=== PATIENT | male | born 1950 | race Caucasian/White ===

== ENCOUNTER 2022-08-20 17:31 | Inpatient (IN) ==
--- NOTE | 2022-08-20 18:17 | Emergency Department Note ---
Impression & Plan Dementia ADMIT ED Provider Note HPI: The patient is a 71-year-old gentleman who presents the emergency department from his nursing facility for evaluation. Patient is currently on hospice care. Patient has history of dementia, stroke earlier this year. On arrival here to the ED the patient is nonresponsive to verbal stimuli, this is reportedly is recent baseline. He is otherwise hemodynamically stable on arrival. ROS: - Per HPI *Outpatient medications and allergy history reviewed. *Pertinent external medical records reviewed. PE: General: Nonresponsive to verbal stimuli HEENT: Normocephalic, trachea midline Eyes: no scleral erythema Pulmonary: Clear to auscultation bilaterally, no wheezing Cardio: Regular rate and rhythm GI: Abdomen is soft to palpation : No suprapubic tenderness MSK: No evidence of trauma or malformation of the extremities, no edema Skin: No evidence of rash Neuro: Nonresponsive to verbal stimuli Psychiatric: N/A playground monitor: (As interpreted by myself): - An order was placed for continuous cardiac monitoring - Patient was noted to be in sinus rhythm with a rate of 90 Interventions provided in ED: -IV fluid bolus Differential Diagnosis: Acute on chronic dementia with debility, sepsis, intracranial bleeding/stroke, amongst other potential pathologies. Medical Decision Making: Patient presented to the emergency department for evaluation after daughter expressed displeasure with the way he was being treated at his nursing facility. He reportedly was just started on hospice care over the weekend. On arrival here to the ED the patient is nonverbal which is per his recent baseline, he is hemodynamically stable, he is not alert to verbal stimuli. I discussed the patient's presentation with his daughter, Odette, who is the POA that signed his POLST form. She states that she would like him to be DNR/DNI but does not want him to be comfort measures only and does not want him to be on hospice care. She states she signed these forms because she thought he would get some additional services at the nursing facility. She states that she is unhappy with the way that the patient was treated at the nursing facility and felt like he was not being fed or hydrated appropriately and not having his hygiene taking care of well enough. IV was established and lab work obtained, patient was given IV fluid bolus, CT imaging of the head shows evidence of ventriculomegaly without any other acute process, no evidence of intracranial hemorrhage, this is consistent with patient's previous CT scans of the head through the [facility] system that were available for review after my consult with case management. Unclear whether this could be related to underlying process from previous stroke. Patient also has dementia with rapid decline recently. Lab work does show leukocytosis, straight catheterization did not produce urine, patient was given IV fluids. I discussed the above findings with the patient's daughter on the phone, she is requesting medical admission at this time for further evaluation and possibly placement at a new facility. Case was discussed with the on-call hospitalist, Dr. Sharma, patient was placed for admission in stable condition. Consultants: Hospitalist, Dr. Sharma Disposition discussion held by myself with: Patient's daughter, Odette Christie, on the phone Diagnosis: 1. Acute on chronic dementia with debility 2. DNR/DNI CODE STATUS 3. Leukocytosis, acute Disposition: Admission Justyn Heredia DO Emergency Medicine Past Med/Surg History Social History (System 09/28/19 @ 14:53 by Samina Quinones) Smoking Status: Current every day smoker Tobacco Type: Cigarettes Feels Safe at Home: Yes Allergies Allergies Allergy/AdvReac Type Severity Reaction Status Date / Time No Known Allergies Allergy Verified 08/20/22 19:27 Home Meds Home Medications Medication Instructions Recorded Confirmed acetaminophen 325 mg tablet 650 mg PO Q6H PRN TEMP >101F/PAIN 08/20/22 08/20/22 (Tylenol) dextrose 5 % in water (D5W) 1,000 ml IV Q8H 08/20/22 08/20/22 nitroglycerin 0.4 mg sublingual 0.4 mg sublingual .Q5MIN PRN Chest 08/20/22 08/20/22 tablet (Nitrostat) Pain polyethylene glycol 3350 17 17 g PO Q24H PRN Constipation 08/20/22 08/20/22 gram/dose oral powder (Miralax) Results & Data (ED) Vital Signs Vital Signs - 24 hr 08/20/22 17:23 08/20/22 17:49 08/20/22 19:16 Temperature 36.1 C L Temperature Source Oral Pulse Rate [Left Radial] 97 H Respiratory Rate 12 Respiratory Effort / Characteristics Non-Labored Respiratory Depth Normal Blood Pressure [Right Arm] 140/95 Blood Pressure Mean [Right Arm] 110 Blood Pressure Position [Right Arm] Right Lateral Pulse Oximetry 93 95 95 Oxygen Delivery Method Room Air Room Air Sepsis New/Unexplained Change in Mental Status No Sepsis Action Taken by Nursing No Action Required Laboratory Data 08/20/22 Unknown 08/20/22 Unknown Lab Results 08/20/22 08/20/22 08/20/22 Range/Units 20:35 Unknown Unknown WBC 15.39 H (4.8-10.8) K/ul RBC 4.09 L (4.70-6.10) M/uL Hgb 12.0 L (14.0-18.0) g/dl Hct 37.8 L (42.0-52.0) % MCV 92.4 (80.0-100.0) fL MCH 29.3 (25.0-34.0) pg MCHC 31.7 L (32.0-36.0) g/dL RDW Std Deviation 50.2 H (36.4-46.3) fL RDW Coeff of Neri 15.0 H (11.5-14.5) % Plt Count 306 (130-400) K/uL MPV 10.7 (9.4-12.4) fL Immature Gran % (Auto) 2.6 % Neut % (Auto) 74.1 % Lymph % (Auto) 15.3 % Sac % (Auto) 7.4 % Eos % (Auto) 0.3 % Baso % (Auto) 0.3 % Neut # (Auto) 11.40 H (1.40-6.50) K/uL Lymph # (Auto) 2.35 (1.2-3.4) K/uL Sac # (Auto) 1.14 H (0.11-0.59) K/uL Eos # (Auto) 0.05 (0-0.50) K/uL Baso # (Auto) 0.05 (0-0.2) K/uL Immature Gran # (Auto) 0.40 H (0.01-0.20) K/uL Sodium 146 H TNP (136-145) mmol/L Potassium 4.1 TNP (3.5-5.1) mmol/L Chloride 114 H (98-107) mmol/L Carbon Dioxide 25 (21-32) mmol/L Anion Gap TNP BUN 43 H (6-23) mg/dl Creatinine 1.08 (0.6-1.4) mg/dl Est Cr Clr Drug Dosing 62.0 ml/min Est GFR ( Amer) 78.5 ml/min Est GFR (Non-Af Amer) 67.7 ml/min BUN/Creatinine Ratio 39.8 H (10-20) Glucose 133 H (70-99(Fasting)) mg/dl Calcium 9.1 (8.6-10.3) mg/dl Magnesium 2.1 (1.7-2.4) mg/dl Total Bilirubin 0.7 (0.2-1.0) mg/dl AST 51 H TNP (13-39) U/L ALT 47 (7-52) U/L Alkaline Phosphatase 93 (34-104) U/L Total Protein 6.0 (6.0-8.3) gm/dl Albumin 2.5 L (3.4-5.0) gm/dl Globulin 3.5 (2.5-4.0) gm/dl Albumin/Globulin Ratio 0.7 L (0.9-2) Lipase 16 (11-82) U/L Administered Medications Discontinued Medications Sodium Chloride (Nss 1000ml) 1,000 mls @ 999 mls/hr IV .Q1H1M ONE Stop: 08/20/22 19:32 Last Admin: 08/20/22 19:13 Dose: 999 mls/hr Documented By: BETTY Imaging Data Radiologist's Impression: Head CT 08/20/22 18:46 Exam(s): CT HEAD Without Contrast EXAM: CT Head Without Intravenous Contrast CLINICAL HISTORY: Reason for exam: head injury/fall recently. TECHNIQUE: Axial computed tomography images of the head/brain without intravenous contrast. CTDI is 37.51 mGy and DLP is 624.41 mGy-cm. Automated exposure control was utilized for the study. A dose lowering technique was utilized adhering to the principles of ALARA. COMPARISON: No relevant prior studies available. FINDINGS: Brain: No hemorrhage. No apparent acute cortical infarct. No intra- axial mass lesion or midline shift. Involutional changes with small vessel disease. Cavum septum pellucidum and vergae. Right frontal encephalomalacia. Dystrophic calcification or calcified meningioma in the right frontal region, a little clinical significance. Ventricles: Moderate ventriculomegaly, could be from central atrophy and/or NPH in the appropriate clinical setting. Bones/joints: No acute calvarial fracture. Nasal fracture of uncertain chronicity. Soft tissues: Scalp lipomas. Sinuses: No acute sinusitis. Mastoid air cells: No mastoid effusion. Orbits: Unremarkable as visualized. IMPRESSION: 1. No acute intracranial hemorrhage. 2. Moderate ventriculomegaly, could be from central atrophy and/or NPH in the appropriate clinical setting. Electronically signed by: Jeremie Marshall M.D. 08/20/22 19:40 PM Discharge Plan Visit Data Chief Complaint: Illness ED Provider: Justyn Heredia Discharge Problem: Dementia Forms Stand Alone Forms: [facility] Prescriptions Prescriptions: No Action acetaminophen [Tylenol] 325 mg Tablet 650 mg PO Q6H MDD 3 GRAMS APAP/24 HOURS PRN (Reason: TEMP >101F/PAIN) nitroglycerin [Nitrostat] 0.4 mg Tablet, Sublingual 0.4 mg sublingual .Q5MIN MDD PAIN PRN (Reason: Chest Pain) polyethylene glycol 3350 [Miralax] 17 gram/dose Powder 17 g PO Q24H PRN (Reason: Constipation) dextrose 5 % in water (D5W) Parenteral Solution 1,000 ml IV Q8H Rx Instructions: DOSE 100 ML/HR IV EVERY SHIFT FOR HYPERNATREMIA. Referrals Referrals: Diego Rosales MD [Primary Care Provider] -
[2022-08-20] MEDS ORDERED: SODIUM CHLORIDE 0.9% 1000ML 1,000 ML IV ONE (18:32)
[2022-08-20 19:40] LABS: Basophils # (auto) 0.05 K/uL (0-0.2); Basophils % (auto) 0.3 %; Eosinophils # (auto) 0.05 K/uL (0-0.50); Eosinophils % (auto) 0.3 %; Hematocrit (blood only) 37.8 % (42.0-52.0); Immature Granulocytes % (auto) 2.6 %; Lymphocytes # (auto) 2.35 K/uL (1.2-3.4); Lymphocytes % (auto) 15.3 %; Mean Corpuscular Hemoglobin 29.3 pg (25.0-34.0); Mean Corpuscular Hgb Conc 31.7 g/dL (32.0-36.0); Mean Corpuscular Volume 92.4 fL (80.0-100.0); Mean Platelet Volume 10.7 fL (9.4-12.4); Monocytes # (auto) 1.14 K/uL (0.11-0.59); Monocytes % (auto) 7.4 %; Neutrophils % (auto) 74.1 %; Platelet Count 306 K/uL (130-400); RDW Standard Deviation 50.2 fL (36.4-46.3); Red Blood Count 4.09 M/uL (4.70-6.10); White Blood Count 15.39 K/ul (4.8-10.8)
--- NOTE | 2022-08-20 19:41 | CT Scan Report ---
Exam(s): CT HEAD Without Contrast EXAM: CT Head Without Intravenous Contrast CLINICAL HISTORY: Reason for exam: head injury/fall recently. TECHNIQUE: Axial computed tomography images of the head/brain without intravenous contrast. CTDI is 37.51 mGy and DLP is 624.41 mGy-cm. Automated exposure control was utilized for the study. A dose lowering technique was utilized adhering to the principles of ALARA. COMPARISON: No relevant prior studies available. FINDINGS: Brain: No hemorrhage. No apparent acute cortical infarct. No intra- axial mass lesion or midline shift. Involutional changes with small vessel disease. Cavum septum pellucidum and vergae. Right frontal encephalomalacia. Dystrophic calcification or calcified meningioma in the right frontal region, a little clinical significance. Ventricles: Moderate ventriculomegaly, could be from central atrophy and/or NPH in the appropriate clinical setting. Bones/joints: No acute calvarial fracture. Nasal fracture of uncertain chronicity. Soft tissues: Scalp lipomas. Sinuses: No acute sinusitis. Mastoid air cells: No mastoid effusion. Orbits: Unremarkable as visualized. IMPRESSION: 1. No acute intracranial hemorrhage. 2. Moderate ventriculomegaly, could be from central atrophy and/or NPH in the appropriate clinical setting. Electronically signed by: Jeremie Marshall M.D. 08/20/22 19:40 PM
[2022-08-20 20:02] LABS: Alanine Aminotransferase 47 U/L (7-52); Albumin Globulin Ratio 0.7 (0.9-2); Albumin Level 2.5 gm/dl (3.4-5.0); Alkaline Phosphatase 93 U/L (34-104); BUN Creatinine Ratio 39.8 (10-20); Bilirubin,Total 0.7 mg/dl (0.2-1.0); Blood Urea Nitrogen 43 mg/dl (6-23); Calcium 9.1 mg/dl (8.6-10.3); Carbon Dioxide 25 mmol/L (21-32); Chloride 114 mmol/L (98-107); Est GFR (African American) 78.5 ml/min; Est GFR (Non-African American) 67.7 ml/min; Globulin 3.5 gm/dl (2.5-4.0); Glucose 133 mg/dl (70-99(Fasting)); Lipase 16 U/L (11-82)
[2022-08-20] MEDS ORDERED: CEFEPIME 2,000 MG/20 ML VIAL IV STA (20:38)
[2022-08-20 21:07] LABS: Magnesium 2.1 mg/dl (1.7-2.4); Potassium 4.1 mmol/L (3.5-5.1)
--- NOTE | 2022-08-20 22:08 | History & Physical Report ---
Date of Service August 20, 2022 Assessment & Plan (1) Dementia: Plan: Hypoactive delirium secondary to hypernatremia possible end-stage dementia Rule out UTI chronic diastolic heart failure (EF 55%), patient on the dry side hx CAD/CVA Decubitus wounds as per patient family account chronic anemia, hemoglobin at baseline Hyperglycemia likely prediabetes, outpatient hemoglobin A1c of 5.9 from 2018 BPH past tobacco abuse Medical telemetry Patient daughter requesting patient to receive treatment for treatable conditions. Free water for hypernatremia Check UA Wound care nurse consult Update hemoglobin A1c PT OT eval Social service re: discharge placement (SNF placement close to daughter residence in [place] if feasible.) Consider inpatient Palliative care consultation to discuss goals of care with patient's family if continued decline noted during inpatient stay. DVT prophylaxis. Heparin subcu DNR as per daughter/POA, Josh Odette Christie. She requests updates from providers through [phone]. Text document was generated using jellyfish voice recognition software. It may contain grammatical or spelling errors. Kindly contact undersigned for clarification of any documentation item in question. History of Present Illness Chief Complaint: Poor care, not going back to [facility] as per daughter Primary Care Provider: Dr. Salazar of [facility] History obtained from patient family and records. Unable to obtain history from patient secondary to dementia. Medical history significant for chronic diastolic heart failure (EF 55%), CAD status post stent, CVA, GERD, chronic anemia (baseline hemoglobin of 12), BPH, mood disorder, past tobacco abuse. Last confinement [facility] April to June 2022 for dementia. Patient daughter/POA unsuccessful getting her father placed at a [facility] in [place] where she resides due to insurance issues. Patient discharged to [facility] SNF 6 weeks ago for placement. Last week, patient noted to be weaker than usual. Patient started on IV ceftriaxone with note of UTI on outpatient UA. Patient not improving despite intervention at mcc. Patient daughter from [place] received a call from [facility] provider that patient may be dying soon and hospice care may be warranted. Patient traveled from [place] to visit father a few days ago. She was unhappy about patient's state and care (bedsores, patient mentation). Patient daughter dissatisfied with telephone conversation with [facility] providers today. She demanded that patient be discharged from [facility] and to be evaluated at the ER for any treatable medical conditions. She adamantly does not want her father to go back to [facility]. Medical History as above Surgical History : Cystoscopy, appendectomy Family History : Heart disease, thyroid disease Personal/Social history : Past tobacco abuse, no recent EtOH intake, [facility] resident the last 2 months Allergies Allergy/AdvReac Type Severity Reaction Status Date / Time No Known Allergies Allergy Verified 08/20/22 19:27 Home Medications Medication Instructions Recorded Confirmed Type acetaminophen 325 mg tablet 650 mg PO Q6H PRN TEMP >101F/PAIN 08/20/22 08/20/22 History (Tylenol) dextrose 5 % in water (D5W) 1,000 ml IV Q8H 08/20/22 08/20/22 History nitroglycerin 0.4 mg sublingual 0.4 mg sublingual .Q5MIN PRN Chest 08/20/22 08/20/22 History tablet (Nitrostat) Pain polyethylene glycol 3350 17 17 g PO Q24H PRN Constipation 08/20/22 08/20/22 History gram/dose oral powder (Miralax) Past Med/Surg History Social History (System 09/28/19 @ 14:53 by Samnia Quinones) Smoking Status: Current every day smoker Tobacco Type: Cigarettes Feels Safe at Home: Yes Review of Systems Review of Systems: Could not be reliably obtained secondary to dementia Physical Exam Physical Exam: GENERAL: Demented, no respiratory distress SKIN: Pallor, cool HEENT: Pale palpebral conjunctivae, no ptosis, dry buccal mucosa NECK : Supple, no tenderness CHEST : Decreased breath sounds, no tenderness HEART : RRR, no obvious murmurs ABDOMEN: Some distention, nontender BACK : Decubiti wounds not examined EXTREMITIES : No LE swelling, no LE tenderness, spastic contracture NEUROLOGIC : Demented, no facial asymmetry, gait and stance not assessed Results & Data Results & Data Vital Signs (Past 12 Hours) Vital Signs Temp Pulse Pulse Resp BP Pulse Ox O2 Del Method 08/20/22 21:52 91 H 08/20/22 19:16 95 Room Air 08/20/22 17:49 97 H 12 140/95 95 08/20/22 17:23 36.1 C L 93 Room Air Laboratory Results Laboratory Results WBC 15.39 K/ul (4.8-10.8) H 08/20/22 Unknown RBC 4.09 M/uL (4.70-6.10) L 08/20/22 Unknown Hgb 12.0 g/dl (14.0-18.0) L 08/20/22 Unknown Hct 37.8 % (42.0-52.0) L 08/20/22 Unknown MCV 92.4 fL (80.0-100.0) 08/20/22 Unknown MCH 29.3 pg (25.0-34.0) 08/20/22 Unknown MCHC 31.7 g/dL (32.0-36.0) L 08/20/22 Unknown RDW Std Deviation 50.2 fL (36.4-46.3) H 08/20/22 Unknown RDW Coeff of Neri 15.0 % (11.5-14.5) H 08/20/22 Unknown Plt Count 306 K/uL (130-400) 08/20/22 Unknown MPV 10.7 fL (9.4-12.4) 08/20/22 Unknown Immature Gran % (Auto) 2.6 % 08/20/22 Unknown Neut % (Auto) 74.1 % 08/20/22 Unknown Lymph % (Auto) 15.3 % 08/20/22 Unknown [place] % (Auto) 7.4 % 08/20/22 Unknown Eos % (Auto) 0.3 % 08/20/22 Unknown Baso % (Auto) 0.3 % 08/20/22 Unknown Neut # (Auto) 11.40 K/uL (1.40-6.50) H 08/20/22 Unknown Lymph # (Auto) 2.35 K/uL (1.2-3.4) 08/20/22 Unknown [place] # (Auto) 1.14 K/uL (0.11-0.59) H 08/20/22 Unknown Eos # (Auto) 0.05 K/uL (0-0.50) 08/20/22 Unknown Baso # (Auto) 0.05 K/uL (0-0.2) 08/20/22 Unknown Immature Gran # (Auto) 0.40 K/uL (0.01-0.20) H 08/20/22 Unknown Sodium TNP 08/20/22 Unknown Potassium TNP 08/20/22 Unknown Chloride 114 mmol/L (98-107) H 08/20/22 Unknown Carbon Dioxide 25 mmol/L (21-32) 08/20/22 Unknown Anion Gap TNP 08/20/22 Unknown BUN 43 mg/dl (6-23) H 08/20/22 Unknown Creatinine 1.08 mg/dl (0.6-1.4) 08/20/22 Unknown Est Cr Clr Drug Dosing 62.0 ml/min 08/20/22 Unknown Est GFR ( Amer) 78.5 ml/min 08/20/22 Unknown Est GFR (Non-Af Amer) 67.7 ml/min 08/20/22 Unknown BUN/Creatinine Ratio 39.8 (10-20) H 08/20/22 Unknown Glucose 133 mg/dl (70-99(Fasting)) H 08/20/22 Unknown Calcium 9.1 mg/dl (8.6-10.3) 08/20/22 Unknown Magnesium 2.1 mg/dl (1.7-2.4) 08/20/22 20:35 Total Bilirubin 0.7 mg/dl (0.2-1.0) 08/20/22 Unknown AST TNP 08/20/22 Unknown ALT 47 U/L (7-52) 08/20/22 Unknown Alkaline Phosphatase 93 U/L (34-104) 08/20/22 Unknown Total Protein 6.0 gm/dl (6.0-8.3) 08/20/22 Unknown Albumin 2.5 gm/dl (3.4-5.0) L 08/20/22 Unknown Globulin 3.5 gm/dl (2.5-4.0) 08/20/22 Unknown Albumin/Globulin Ratio 0.7 (0.9-2) L 08/20/22 Unknown Lipase 16 U/L (11-82) 08/20/22 Unknown TSH 1.713 uIu/ml (0.300-4.500) 08/20/22 20:[address] 08/20/22 18:46 Exam(s): CT HEAD Without Contrast EXAM: CT Head Without Intravenous Contrast CLINICAL HISTORY: Reason for exam: head injury/fall recently. TECHNIQUE: Axial computed tomography images of the head/brain without intravenous contrast. CTDI is 37.51 mGy and DLP is 624.41 mGy-cm. Automated exposure control was utilized for the study. A dose lowering technique was utilized adhering to the principles of ALARA. COMPARISON: No relevant prior studies available. FINDINGS: Brain: No hemorrhage. No apparent acute cortical infarct. No intra- axial mass lesion or midline shift. Involutional changes with small vessel disease. Cavum septum pellucidum and vergae. Right frontal encephalomalacia. Dystrophic calcification or calcified meningioma in the right frontal region, a little clinical significance. Ventricles: Moderate ventriculomegaly, could be from central atrophy and/or NPH in the appropriate clinical setting. Bones/joints: No acute calvarial fracture. Nasal fracture of uncertain chronicity. Soft tissues: Scalp lipomas. Sinuses: No acute sinusitis. Mastoid air cells: No mastoid effusion. Orbits: Unremarkable as visualized. IMPRESSION: 1. No acute intracranial hemorrhage. 2. Moderate ventriculomegaly, could be from central atrophy and/or NPH in the appropriate clinical setting. Electronically signed by: Jeremie Marshall M.D. 08/20/22 19:40 PM Diagnostic Findings EKG as per my interpretation : (1) Dementia Dementia behavioral or psychological symptom: unspecified whether behavioral, psychotic, or mood disturbance or anxiety Dementia severity: severe Dementia type: unspecified type Qualified Code(s): F03.C0 - Unspecified dementia, severe, without behavioral disturbance, psychotic disturbance, mood disturbance, and anxiety
[2022-08-20] MEDS ORDERED: D5W AND 1/2NSS 1,000 ML IV ONE (22:43)
[2022-08-20] MEDS ORDERED: DEXTROSE 5% 1,000 ML IV STA (22:47)
[2022-08-21 03:56] LABS: Appearance Urine Clear (Clear); Bacteria Urine Automated Negative (Negative); Blood Urine 1+ (Negative); Color Urine Dark Yellow; Glucose Urine UA Negative (Negative); Ketones Urine Negative (Negative); Leukocyte Esterase Urine 1+ (Negative); Nitrite Urine Negative (Negative); Protein Urine Trace (Negative); Specific Gravity Urine 1.025 (1.000-1.030); Urobilinogen Urine Negative (Negative)
[2022-08-21 04:10] LABS: Bilirubin Urine 1+ (Negative)
[2022-08-21] MEDS: CEFEPIME 2,000 MG in SYRINGE 0 ML IV SCH ×3 (04:52→21:29)
[2022-08-21] MEDS: HEPARIN SOD 5,000 UNIT/0.5 ML VIAL SQ SCH ×2 (04:52→13:23)
[2022-08-21 06:19] LABS: Basophils # (auto) 0.06 K/uL (0-0.2); Basophils % (auto) 0.5 %; Eosinophils # (auto) 0.05 K/uL (0-0.50); Eosinophils % (auto) 0.4 %; Hematocrit (blood only) 40.6 % (42.0-52.0); Hemoglobin 12.3 g/dl (14.0-18.0); Immature Granulocytes # (auto) 0.37 K/uL (0.01-0.20); Immature Granulocytes % (auto) 2.9 %; Lymphocytes # (auto) 2.14 K/uL (1.2-3.4); Lymphocytes % (auto) 16.8 %; Mean Corpuscular Hemoglobin 28.9 pg (25.0-34.0); Mean Corpuscular Hgb Conc 30.3 g/dL (32.0-36.0); Mean Corpuscular Volume 95.3 fL (80.0-100.0); Monocytes # (auto) 0.81 K/uL (0.11-0.59); Monocytes % (auto) 6.3 %; Neutrophils # (auto) 9.33 K/uL (1.40-6.50); Neutrophils % (auto) 73.1 %; Platelet Count 289 K/uL (130-400); RDW Coefficient of Variation 15.2 % (11.5-14.5); RDW Standard Deviation 52.1 fL (36.4-46.3); Red Blood Count 4.26 M/uL (4.70-6.10); White Blood Count 12.76 K/ul (4.8-10.8)
[2022-08-21 06:25] LABS: BUN Creatinine Ratio 35.3 (10-20); Calcium 9.5 mg/dl (8.6-10.3); Creatinine Clr Calc Pharmacy 64.8 ml/min; Est GFR (African American) 84.1 ml/min; Est GFR (Non-African American) 72.6 ml/min; Potassium 5.7 mmol/L (3.5-5.1)
[2022-08-21] MEDS ORDERED: DEXTROSE 50% 50 ML SYRINGE IV STA (06:46)
[2022-08-21] MEDS ORDERED: INSULIN HUMAN REGULAR PER UNIT 5 UNITS in SYRINGE 0 ML IV STA (06:46)
[2022-08-21] MEDS ORDERED: SODIUM BICARB 8.4% INJ 50 MEQ/50 ML SYR IV STA (06:47)
[2022-08-21] MEDS ORDERED: STAT IV STA (07:04)
--- NOTE | 2022-08-21 07:08 | XRay Report ---
SINGLE VIEW CHEST CLINICAL HISTORY: Leukocytosis. FINDINGS: An AP, portable, upright chest radiograph is obtained. No prior studies are available for c omparison at the time of dictation. The examination is degraded by portable technique and patient rot ation. The cardiomediastinal silhouette is unremarkable noting atherosclerotic calcification of the thoracic aorta. There are bibasilar airspace opacities. No large pleural effusion or pneumothorax is seen. The skeletal structures are osteopenic. The bony thorax is grossly intact. IMPRESSION: Bibasilar airspace opacities could represent scarring/atelectasis versus a mild pneumonit is. Clinical correlation will be required and radiographic follow-up to resolution is recommended. ACT 112: Negative or not required by law. Electronically signed by: Klever Garcia M.D. 08/21/2022 7:07 AM
[2022-08-21] MEDS ORDERED: CALCIUM GLUCONATE 10% 1,000 MG in DEXTROSE 5% 50 ML IV ONE (07:30)
[2022-08-21] MEDS: DEXTROSE 5% 1,000 ML IV SCH ×2 (07:33→15:51)
[2022-08-21 08:22] LABS: Estimated Average Glucose 120 mg/dl; Hemoglobin A1C 5.8 % (4.5-5.6)
[2022-08-21 13:44] LABS: BUN Creatinine Ratio 36.2 (10-20); Calcium 10.2 mg/dl (8.6-10.3); Creatinine Clr Calc Pharmacy 70.6 ml/min; Est GFR (African American) 92.9 ml/min; Est GFR (Non-African American) 80.1 ml/min; Potassium 5.8 mmol/L (3.5-5.1)
[2022-08-21] MEDS ORDERED: DEXTROSE 50% 50 ML SYRINGE IV ONE (14:28)
[2022-08-21] MEDS ORDERED: INSULIN HUMAN REGULAR PER UNIT 5 UNITS in SYRINGE 4.95 ML IV STA (14:31)
--- NOTE | 2022-08-21 14:35 | Hospitalist Progress Note ---
Date of Service August 21, 2022 Assessment & Plan (1) Dementia: Plan 71-year-old male with PMH of chronic diastolic heart failure [EF 55%], CAD status post stent, CVA, GERD, chronic anemia [baseline hemoglobin of 12], BPH, mood disorder, past tobacco abuse, dementia was brought from the senior living by his daughter because his daughter was unhappy about patient's status and care at the facility. He is being managed for the following while in hospital: Possible end-stage dementia Dehydration, poor appetite Hyponatremia, hyperkalemia Concern for UTI Hypoactive delirium secondary to above Metabolic encephalopathy secondary to above Patient brought from senior living due to concern for poor care he was receiving there. Patient with history of dementia, likely worsening. Patient hyponatremic at presentation, potassium level increasing while in hospi timi. Urine analysis looks dirty, follow-up with urine culture and admitting blood culture. We will continue with IV fluids, repeat BMP in the evening and night. We will add insulin bolus 5 unit x 1 and IV dextrose 50% x 1 to try to lower down potassium. Encourage p.o. intake, low potassium diet. If not improving, consider nephrology consult. Get repeat EKG w/ next K+ level if still elevated. On cefepime for concern of UTI, follow urine culture. Decubitus ulcers at various stages POA: Stage II sacral ulcer Stage I right heel ulcer Stage II left heel ulcer Stage I other pressure-point ulcers including left elbow/bilateral ankle/right lateral st Wound care on board, appreciate recommendation. Other chronic medical conditions: Resume/continue with home meds as able. Chronic diastolic heart failure EF 55%patient on dry side Chronic anemia, hemoglobin at baseline Hyperglycemia, prediabetes, A1c of 5.8 Past tobacco abuse DVT prophylaxis: Heparin subcu DNR/DNI Patient's daughter/POA Ms. Odette Christie [phone]. Disposition: PT/OT, CM to assist with DC planning. Given a phone call to patient's daughter for general update, left voicemail and asked to call us back for general update. Admission and Anticipated Discharge Date Admission Date: August 20, 2022 Subjective Patient seen and examined at bedside as a follow-up of hypoactive delirium lik will secondary to hyponatremia on the background of possible end-stage dementia. Patient was lying in bed, on room air, does not appear to be in distress, is not vocal and barely speaks up. Appears alert. Per RN, patient has been confused on and off, he is a total feed. No new acute deterioration overnight. ROS not able due to cognition status. Physical Exam Physical Exam: GENERAL: Alert and awake. NAD, on RA. Appears confused, not able to cooperate. Did drink water at bedside when offered. HEENT: No pallor, no icterus. Pupils equal, round and reactive to light. Oral mucosa dry. NECK: No JVD, no neck masses. HEART: S1 and S2 heard. Regular rate and rhythm. No murmur, no gallop. RESPIRATORY SYSTEM: Normal AP diameter. No accessory muscle use. No wheezing, no crackles. ABDOMEN: Soft, bowel sounds present, nontender, no distention. CENTRAL NERVOUS SYSTEM: No facial droop. Speech is clear. Obeys simple commands. Moves extremities. EXTREMITIES: No edema, no erythema seen. Various pressure point ulcer. low back w/ decubitus ulcer stage II. imaging reviewed, not examined as pt was not able to cooperate. Results & Data Results & Data Vital Signs (Past 12 Hours) Vital Signs Temp Pulse Resp BP Pulse Ox O2 Del Method 08/21/22 07:11 36.5 C 85 16 127/70 98 Room Air 08/21/22 03:20 36.9 C 80 18 119/67 96 Room Air (1) Dementia Dementia behavioral or psychological symptom: unspecified whether behavioral, psychotic, or mood disturbance or anxiety Dementia severity: severe Dementia type: unspecified type Qualified Code(s): F03.C0 - Unspecified dementia, severe, without behavioral disturbance, psychotic disturbance, mood disturbance, and anxiety
[2022-08-21 18:56] LABS: Calcium 9.2 mg/dl (8.6-10.3); Creatinine Clr Calc Pharmacy 77.1 ml/min; Est GFR (African American) 99.7 ml/min; Potassium 4.2 mmol/L (3.5-5.1)
[2022-08-21 23:45] LABS: BUN Creatinine Ratio 30.9 (10-20); Calcium 9.6 mg/dl (8.6-10.3); Creatinine Clr Calc Pharmacy 70.6 ml/min; Est GFR (African American) 92.9 ml/min; Est GFR (Non-African American) 80.1 ml/min
[2022-08-22] MEDS: DEXTROSE 5% 1,000 ML IV SCH ×2 (04:36→17:27)
[2022-08-22] MEDS: CEFEPIME 2,000 MG in SYRINGE 0 ML IV SCH ×3 (05:41→22:49)
[2022-08-22 07:12] LABS: Hematocrit (blood only) 35.8 % (42.0-52.0); Hemoglobin 11.1 g/dl (14.0-18.0); Mean Corpuscular Volume 93.5 fL (80.0-100.0); Mean Platelet Volume 10.8 fL (9.4-12.4); Platelet Count 255 K/uL (130-400); RDW Coefficient of Variation 14.8 % (11.5-14.5); RDW Standard Deviation 50.5 fL (36.4-46.3); Red Blood Count 3.83 M/uL (4.70-6.10); White Blood Count 12.78 K/ul (4.8-10.8)
[2022-08-22 07:33] LABS: BUN Creatinine Ratio 32.5 (10-20); Calcium 8.9 mg/dl (8.6-10.3); Creatinine Clr Calc Pharmacy 70.3 ml/min; Est GFR (African American) 102.7 ml/min; Est GFR (Non-African American) 88.6 ml/min; Magnesium 1.9 mg/dl (1.7-2.4); Phosphorus 2.4 mg/dl (2.5-4.9); Potassium 3.7 mmol/L (3.5-5.1)
[2022-08-22] MEDS: POT PHOSPHATE MONOBASIC W/ SOD TAB PO SCH ×4 (09:24→20:48)
--- NOTE | 2022-08-22 10:39 | Urology Consultation ---
Date of Consultation August 22, 2022 Assessment & Plan (1) Gross hematuria: Plan 71yo/M admitted with metabolic encephalopathy, possible end-stage dementia, dehydration, concern for UTI. Urology consulted for hematuria. He is afebrile and hemodynamically stable. Labs show a WBC 12.70, hemoglobin 11.1, and creatinine 0.80. Urine culture is pending. Blood cultures are prelim no growth x24 hours. He is on Cefepime. Nursing noted bleeding around tip of penis at Alvarado catheter insertion site last evening. Nursing removed the alvarado catheter and attempted to reinsert, but was unsuccessful. They noted hematuria and clots at this time. A condom catheter was placed and remains in place. Currently draining dark brown/red urine. Hematuria possibly d/t cath trauma, poss UTI. Pt was bladder scanned this morning by nursing for 80ml. Would recommend close monitoring with bladder scan/PVR every shift. Would not attempt Alvarado catheter replacement unless bladder scans/PVR >400ml. Urology will follow. History of Present Illness Attending Physician: Ceasar Diaz MD History of Present Illness 71-year-old male with PMH of chronic diastolic heart failure, CAD status post stent, CVA, GERD, chronic anemia, BPH, mood disorder, past tobacco abuse, dementia admitted with metabolic encephalopathy, possible end-stage dementia, dehydration, concern for UTI. Urology consulted for hematuria, bleeding around alvarado Per chart review- Nursing noted bleeding around tip of penis at Alvarado catheter insertion site. Nursing removed the alvarado catheter and attempted to reinsert, but was unsuccessful. They noted hematuria and clots at this time. A condom catheter was placed and remains in place. He was bladder scanned this morning by nursing for 80ml. Patient examined at bedside this AM. Awake. Does not appear to be in any acute distress. Condom catheter intact, draining dark brown/red urine. 100ml in bag at time of visit. ROS not able due to cognition status. Allergies Allergy/AdvReac Type Severity Reaction Status Date / Time No Known Allergies Allergy Verified 08/20/22 19:27 Home Medications Medication Instructions Recorded Confirmed Type acetaminophen 325 mg tablet 650 mg PO Q6H PRN TEMP >101F/PAIN 08/20/22 08/20/22 History (Tylenol) dextrose 5 % in water (D5W) 1,000 ml IV Q8H 08/20/22 08/20/22 History nitroglycerin 0.4 mg sublingual 0.4 mg sublingual .Q5MIN PRN Chest 08/20/22 08/20/22 History tablet (Nitrostat) Pain polyethylene glycol 3350 17 17 g PO Q24H PRN Constipation 08/20/22 08/20/22 History gram/dose oral powder (Miralax) Patient History Social History (System 09/28/19 @ 14:53 by Samina Quinones) Smoking Status: Current every day smoker Tobacco Type: Cigarettes Second Hand Exposure: No; Do You Dip or Chew Tobacco: No; Tobacco Cessation Education Requested by Patient: No Hx Alcohol Use: No Hx Substance Use: No Preferred Language: Vietnamese Communication Ability: Unable District Resource Officer Required: No Beliefs That Will Affect Care: None Current Living Situation: Alf Feels Safe at Home: Declines to Answer Assistive Devices: None Review of Systems Review of Systems: Unobtainable due to cognitive status Physical Exam Constitutional: no acute distress Neck: normal visual inspection Respiratory: no respiratory distress and no labored breathing Gastrointestinal (Abdomen): Inspection/Auscultation: abdomen not distended Percussion/Palpation: abdomen soft; abdomen nontender Musculoskeletal: Head/Neck/Chest: normocephalic Upper extremities contracted Skin: No visible rashes or lesions to exposed skin areas Neurologic: Pt was awake and alert but did not make eye contact or conversation. Opened eyes to name. Genitourinary: External catheter in place Results & Data Vital Signs (Past 12 Hours) Vital Signs Temp Pulse Pulse Resp BP BP Pulse Ox 08/22/22 08:00 86 08/22/22 07:28 36.6 C 89 19 115/71 99 08/22/22 04:02 36.9 C 81 18 109/71 98 08/21/22 23:30 36.8 C 85 18 108/73 97 O2 Del Method 08/22/22 08:00 08/22/22 07:28 Room Air 08/22/22 04:02 Room Air 08/21/22 23:30 Room Air PG Care Time/CCT Total # of Minutes Spent Total Time Spent with Patient: Total time spent is greater than 50% in coordination of care (as documented) at patient's floor/unit and/or counseling patient: Coding Level of Care Code 71728 INT INP/OBS CARE 2/55MIN Diagnoses Gross hematuria R31.0
--- NOTE | 2022-08-22 16:14 | Hospitalist Progress Note ---
Date of Service August 22, 2022 Assessment & Plan (1) Dementia: Plan 71-year-old male with PMH of chronic diastolic heart failure [EF 55%], CAD status post stent, CVA, GERD, chronic anemia [baseline hemoglobin of 12], BPH, mood disorder, past tobacco abuse, dementia was brought from the correction by his daughter because his daughter was unhappy about patient's status and care at the facility. He is being managed for the following while in hospital: Possible end-stage dementia Dehydration, poor appetite Hyponatremia, hyperkalemia Concern for UTI Hypoactive delirium secondary to above Metabolic encephalopathy secondary to above Patient brought from correction due to concern for poor care he was receiving there. Patient with history of dementia, likely worsening. Patient hyponatremic at presentation, potassium level increasing while in hospi timi. Urine analysis looks dirty, follow-up with urine culture and admitting blood culture. We will continue with IV fluids, repeat BMP in am. Consider dicontinuing ivf if with good appetite karol. Encourage p.o. intake, low potassium diet. K and Na are better today. Advance diet as moris. no problem swallowing per RN. On cefepime for concern of UTI, follow urine culture. Of note, he recently was given rocephin as OP for UTI. Decubitus ulcers at various stages POA: Stage II sacral ulcer Stage I right heel ulcer Stage II left heel ulcer Stage I other pressure-point ulcers including left elbow/bilateral ankle/right lateral st Wound care on board, appreciate care/recommendation. Low Air mattress. Other chronic medical conditions: Resume/continue with home meds as able. Chronic diastolic heart failure EF 55%patient on dry side Chronic anemia, hemoglobin at baseline Hyperglycemia, prediabetes, A1c of 5.8 Past tobacco abuse DVT prophylaxis: Heparin subcu DNR/DNI Patient's daughter/POA Ms. Odette Christie [phone]. Disposition: PT/OT, CM to assist with DC planning. Updated pt's dtr 08/21 over the phone. Admission and Anticipated Discharge Date Admission Date: August 20, 2022 Subjective Patient seen and examined at bedside as a follow-up of hypoactive delirium likely secondary to hyponatremia on the background of possible end-stage dementia. Patient was lying in bed, on room air, does not appear to be in distress, is not vocal and barely speaks. Appears alert. Per RN, patient has been confused on and off, he is a total feed/good eating. No new acute deterioration overnight. ROS not able due to cognition status. Physical Exam Physical Exam: GENERAL: Alert and awake. NAD, on RA. Appears confused, not able to cooperate. HEENT: No pallor, no icterus. Pupils equal, round and reactive to light. Oral mucosa dry. NECK: No JVD, no neck masses. HEART: S1 and S2 heard. Regular rate and rhythm. No murmur, no gallop. RESPIRATORY SYSTEM: Normal AP diameter. No accessory muscle use. No wheezing, no crackles. ABDOMEN: Soft, bowel sounds present, nontender, no distention. CENTRAL NERVOUS SYSTEM: No facial droop. Speech is clear. Obeys simple commands. Moves extremities. EXTREMITIES: No edema, no erythema seen. Various pressure point ulcer. low back w/ decubitus ulcer stage II. imaging reviewed, not examined as pt was not able to cooperate. Results & Data Results & Data Vital Signs (Past 12 Hours) Vital Signs Temp Pulse Pulse Resp BP BP Pulse Ox 08/22/22 15:26 36.5 C 84 18 105/65 98 08/22/22 15:16 84 08/22/22 11:39 36.3 C L 84 18 120/69 98 08/22/22 08:00 86 08/22/22 07:28 36.6 C 89 19 115/71 99 O2 Del Method 08/22/22 15:26 Room Air 08/22/22 15:16 08/22/22 11:39 Room Air 08/22/22 08:00 08/22/22 07:28 Room Air (1) Dementia Dementia behavioral or psychological symptom: unspecified whether behavioral, psychotic, or mood disturbance or anxiety Dementia severity: severe Dementia type: unspecified type Qualified Code(s): F03.C0 - Unspecified dementia, severe, without behavioral disturbance, psychotic disturbance, mood disturbance, and anxiety
[2022-08-23] MEDS: DEXTROSE 5% 1,000 ML IV SCH (05:31)
[2022-08-23 06:08] LABS: BUN Creatinine Ratio 27.1 (10-20); Calcium 8.2 mg/dl (8.6-10.3); Creatinine Clr Calc Pharmacy 80.3 ml/min; Est GFR (African American) 108.5 ml/min; Est GFR (Non-African American) 93.6 ml/min; Phosphorus 3.1 mg/dl (2.5-4.9); Potassium 3.3 mmol/L (3.5-5.1)
[2022-08-23 06:16] LABS: Hemoglobin 10.4 g/dl (14.0-18.0); Mean Corpuscular Hemoglobin 29.1 pg (25.0-34.0); Mean Corpuscular Hgb Conc 32.5 g/dL (32.0-36.0); Mean Corpuscular Volume 89.4 fL (80.0-100.0); Mean Platelet Volume 10.4 fL (9.4-12.4); Platelet Count 265 K/uL (130-400); RDW Coefficient of Variation 14.2 % (11.5-14.5); RDW Standard Deviation 45.6 fL (36.4-46.3); Red Blood Count 3.58 M/uL (4.70-6.10); White Blood Count 13.04 K/ul (4.8-10.8)
[2022-08-23] MEDS: CEFEPIME 2,000 MG in SYRINGE 0 ML IV SCH ×3 (06:49→21:20)
[2022-08-23] MEDS: POT PHOSPHATE MONOBASIC W/ SOD TAB PO SCH ×4 (08:07→20:52)
--- NOTE | 2022-08-23 09:13 | Urology Progress Note ---
Date of Service August 23, 2022 Assessment & Plan (1) Gross hematuria: Plan: He seems to be emptying his bladder well with the current set up. Would hold off on catheter placement, continue condom cath and bladder scanning. (2) UTI symptoms: Plan: Urine culture from 08/21/2022 was negative. Would be reasonable to de-escalate antibiotics unless there other possible sources of infection. Plan Urology will sign off for now and he can follow-up as an outpatient. Please call with any questions or concerns. Admission and Anticipated Discharge Date Admission Date: August 20, 2022 Subjective Patient unable to provide any meaningful history due to mental status No acute issues overnight, no issues with condom cath drainage. Bladder scans remain appropriately low. Physical Exam Physical Exam: Frail-appearing, awakens easily but not able to provide any history. Genitourinary: Clear urine in catheter bag Results & Data Vital Signs (Past 12 Hours) Vital Signs Temp Pulse Pulse Resp BP BP Pulse Ox 08/23/22 08:00 36.7 C 86 20 142/75 H 97 08/23/22 03:54 36.6 C 90 20 161/75 H 99 08/23/22 00:00 90 08/22/22 22:31 36.7 C 93 H 24 150/72 H 98 O2 Del Method 08/23/22 08:00 Room Air 08/23/22 03:54 Room Air 08/23/22 00:00 08/22/22 22:31 Room Air PG Care Time/CCT Total # of Minutes Spent Total Time Spent with Patient: Total time spent is greater than 50% in coordination of care (as documented) at patient's floor/unit and/or counseling patient: Coding Level of Care Code 88842 SUB INP/OBS CARE 1/25MIN Diagnoses Gross hematuria R31.0 UTI symptoms R39.9
[2022-08-23] MEDS ORDERED: POTASSIUM CHLORIDE CRTAB 20 MEQ TABCR PO STA (09:20)
--- NOTE | 2022-08-23 14:36 | Hospitalist Progress Note ---
Date of Service August 23, 2022 Assessment & Plan (1) Dementia: Plan 71-year-old male with PMH of chronic diastolic heart failure [EF 55%], CAD status post stent, CVA, GERD, chronic anemia [baseline hemoglobin of 12], BPH, mood disorder, past tobacco abuse, dementia was brought from the snf by his daughter because his daughter was unhappy about patient's status and care at the facility. He is being managed for the following while in hospital: Possible end-stage dementia Dehydration, poor appetite Hyponatremia, hyperkalemia Concern for UTI Hypoactive delirium secondary to above Metabolic encephalopathy secondary to above Patient brought from snf due to concern for poor care he was receiving there. Patient with history of dementia, likely worsening. Patient hyponatremic at presentation, potassium level increasing while in hospi [place]. Urine analysis looks dirty, follow-up with urine culture and admitting blood culture. Pt tolerating diet well, is pocketing certain diet/no apsiration per RN; change consistency of diet as appropriate until speech eval. moving bowels ok speech consult for recs. E Encourage p.o. intake. Electrolytes are getting better. On cefepime for concern of UTI. Of note, he recently was given rocephin as OP for UTI. Will de-escalate karol. Urinary retention noted on bladder scan and uro made aware per RN. Decubitus ulcers at various stages POA: Stage II sacral ulcer Stage I right heel ulcer Stage II left heel ulcer Stage I other pressure-point ulcers including left elbow/bilateral ankle/right lateral st Wound care on board, appreciate care/recommendation. Low Air mattress. Other chronic medical conditions: Resume/continue with home meds as able. Chronic diastolic heart failure EF 55%patient on dry side Chronic anemia, hemoglobin at baseline Hyperglycemia, prediabetes, A1c of 5.8 Past tobacco abuse DVT prophylaxis: Heparin subcu on hold due to hematuria, scds DNR/DNI Patient's daughter/POA Ms. Odette Christie [phone]. Disposition: PT/OT, CM to assist with DC planning. Will need Uro f/u on DC. Updated pt's dtr 08/21 over the phone. Admission and Anticipated Discharge Date Admission Date: August 20, 2022 Subjective Patient seen and examined at bedside as a follow-up of hypoactive delirium likely secondary to hyponatremia on the background of possible end-stage dementia. Patient was lying in bed, on room air, does not appear to be in distress, was able to tell his name, otherwise not oriented. Appears alert. Per RN, patient has been confused on and off, he is a total feed/good eating. ROS not able due to cognition status. Had bowel movements today. bladder scan with 639 ml; will need alvarado placed, uro made aware per RN. Uro already following the patient. Physical Exam Physical Exam: GENERAL: Alert and awake. NAD, on RA. Appears confused, not able to cooperate. HEENT: No pallor, no icterus. Pupils equal, round and reactive to light. Oral mucosa dry. NECK: No JVD, no neck masses. HEART: S1 and S2 heard. Regular rate and rhythm. No murmur, no gallop. RESPIRATORY SYSTEM: Normal AP diameter. No accessory muscle use. No wheezing, no crackles. ABDOMEN: Soft, bowel sounds present, nontender, no distention. CENTRAL NERVOUS SYSTEM: No facial droop. Speech is clear. Obeys simple commands. Moves extremities. EXTREMITIES: No edema, no erythema seen. Various pressure point ulcer. low back w/ decubitus ulcer stage II. imaging reviewed, not examined as pt was not able to cooperate. Results & Data Results & Data Vital Signs (Past 12 Hours) Vital Signs Temp Pulse Pulse Resp BP Pulse Ox O2 Del Method 08/23/22 11:17 36.4 C L 114 H 18 133/87 95 Room Air 08/23/22 08:00 82 08/23/22 08:00 Room Air 08/23/22 08:00 36.7 C 86 20 142/75 H 97 Room Air 08/23/22 03:54 36.6 C 90 20 161/75 H 99 Room Air (1) Dementia Dementia behavioral or psychological symptom: unspecified whether behavioral, psychotic, or mood disturbance or anxiety Dementia severity: severe Dementia type: unspecified type Qualified Code(s): F03.C0 - Unspecified dementia, severe, without behavioral disturbance, psychotic disturbance, mood disturbance, and anxiety
[2022-08-23] MEDS ORDERED: LIDOCAINE 2% JELLY 5 ML TUBE EXT ONE (14:50)
--- NOTE | 2022-08-23 16:05 | Procedure Note ---
Procedure Note Date of Service August 23, 2022 Note Urology was called in the afternoon of 08/23/2022 due to elevated volume on bladder scan ( >650 ml) and inability to place Lau catheter. On evaluation, Mr. Christie was reasonably comfortable in bed, however had fullness to palpation of the lower abdomen. A catheter was placed in the following fashion: The patient was prepped and draped in the usual sterile fashion. A well- lubricated 18 Iraqi coud tip catheter was advanced per urethra. The pendulous urethra felt normal, however at approximately the level of the bulbar urethra there was mild resistance and the catheter did not advance easily. I was able to feel the catheter curling on itself, but eventually felt like it made some progress. When I attempted to aspirate fluid from the catheter, there was a small amount of blood but no significant urine. Attempted in a similar fashion with a 14 Iraqi silicone catheter, and attempted to use a angle-tip zip wire to advance up to the bladder, but none of these could be positioned appropriately. The flexible cystoscope was then obtained. He was prepped again with Betadine and under direct visualization, the 16 Iraqi cystoscope was advanced per urethra. At the level of the bulbar urethra there was a false passage. The normal urethra extended anteriorly, and I was able to advance the cystoscope into the bladder with minimal resistance. A wire was advanced through the cystoscope and an appropriate amount was curled within the bladder. The scope was removed, then over the wire I advanced a 16 [place] umk[place] tip catheter. Once in position, the balloon was inflated with 10 mL of normal saline. The catheter was attached to gravity drainage and there was immediate output of clear yellow urine. Overall, the patient tolerated the procedure well. There were no immediate complications. He should have the catheter remain in place for approximately 2 weeks to allow urethral rest. We can arrange follow-up in the urology office for voiding trial or catheter exchange if needed. Coding
[2022-08-23] MEDS: TAMSULOSIN HCL 0.4 MG CAP PO SCH (20:52)
[2022-08-24] MEDS ORDERED: POTASSIUM CHLORIDE PWD 20 MEQ PACK PO STA ×2 (05:35→07:25)
[2022-08-24] MEDS ORDERED: MAGNESIUM SULFATE / D5W 1 GM/100 ML BAG IV ONE ×2 (05:45→07:30)
--- NOTE | 2022-08-24 05:55 | Communication Note ---
Date of Service: August 24, 2022 Patient noted to have asymptomatic PVCs as per RN. AP Asymptomatic PVCs initiate low-dose beta-belle (Patient previously on atenolol Rx for CAD as per records) Check electrolytes, supplement potassium and magnesium accordingly.
[2022-08-24] MEDS: CEFEPIME 2,000 MG in SYRINGE 0 ML IV SCH (06:11)
[2022-08-24 06:46] LABS: Basophils # (auto) 0.03 K/uL (0-0.2); Basophils % (auto) 0.3 %; Eosinophils % (auto) 0.8 %; Hematocrit (blood only) 31.3 % (42.0-52.0); Hemoglobin 10.1 g/dl (14.0-18.0); Immature Granulocytes # (auto) 0.17 K/uL (0.01-0.20); Immature Granulocytes % (auto) 1.4 %; Lymphocytes # (auto) 1.99 K/uL (1.2-3.4); Lymphocytes % (auto) 16.9 %; Mean Corpuscular Hemoglobin 29.2 pg (25.0-34.0); Mean Corpuscular Hgb Conc 32.3 g/dL (32.0-36.0); Mean Corpuscular Volume 90.5 fL (80.0-100.0); Mean Platelet Volume 10.4 fL (9.4-12.4); Monocytes # (auto) 0.63 K/uL (0.11-0.59); Monocytes % (auto) 5.3 %; Neutrophils # (auto) 8.89 K/uL (1.40-6.50); Neutrophils % (auto) 75.3 %; Platelet Count 268 K/uL (130-400); RDW Coefficient of Variation 14.5 % (11.5-14.5); RDW Standard Deviation 46.8 fL (36.4-46.3); Red Blood Count 3.46 M/uL (4.70-6.10); White Blood Count 11.81 K/ul (4.8-10.8)
[2022-08-24] MEDS: METOPROLOL TARTRATE 25 MG TAB PO SCH ×2 (06:50→20:33)
[2022-08-24 07:20] LABS: Calcium 8.2 mg/dl (8.6-10.3); Magnesium 1.6 mg/dl (1.7-2.4); Potassium 3.5 mmol/L (3.5-5.1)
[2022-08-24 07:26] LABS: BUN Creatinine Ratio 25.8 (10-20); Creatinine Clr Calc Pharmacy 111.7 ml/min; Est GFR (African American) 114.1 ml/min; Est GFR (Non-African American) 98.4 ml/min
[2022-08-24] MEDS ORDERED: ADVANCED PROBIOTIC 1250 MG CAPSULE PO SCH (09:00)
[2022-08-24] MEDS ORDERED: LACTOBACILLUS ACIDOPHILUS 1 GM PACK PO ONE (09:30)
[2022-08-24] MEDS: cefTRIAXone SODIUM 2,000 MG in DEXTROSE 5% 50 ML IV SCH (10:59)
--- NOTE | 2022-08-24 14:04 | Hospitalist Progress Note ---
Date of Service August 24, 2022 Assessment & Plan (1) Dementia: Plan 71-year-old male with PMH of chronic diastolic heart failure [EF 55%], CAD status post stent, CVA, GERD, chronic anemia [baseline hemoglobin of 12], BPH, mood disorder, past tobacco abuse, dementia was brought from the custodial by his daughter because his daughter was unhappy about patient's status and care at the facility. He is being managed for the following while in hospital: Possible end-stage dementia Dehydration, poor appetite Hyponatremia, hyperkalemia Concern for UTI Hypoactive delirium secondary to above Metabolic encephalopathy secondary to above Patient brought from custodial due to concern for poor care he was receiving there. Patient with history of dementia, likely worsening. Patient hyponatremic at presentation, potassium level increasing while in hospit al. Urine analysis looks dirty, follow-up with urine culture and admitting blood culture. Pt tolerating diet well, is pocketing certain diet/no aspiration per RN; change consistency of diet as appropriate until speech eval. moving bowels ok speech consult for recs. Encourage p.o. intake. Electrolytes are getting better. ceftriaxone from today, will continue. Urinary retention noted on bladder scan and uro made aware per RN. PVCs: asymptomatic, metoprolol added 08/24 Decubitus ulcers at various stages POA: Stage II sacral ulcer Stage I right heel ulcer Stage II left heel ulcer Stage I other pressure-point ulcers including left elbow/bilateral ankle/right lateral st Wound care on board, appreciate care/recommendation. Low Air mattress. Other chronic medical conditions: Resume/continue with home meds as able. Chronic diastolic heart failure EF 55%patient on dry side Chronic anemia, hemoglobin at baseline Hyperglycemia, prediabetes, A1c of 5.8 Past tobacco abuse DVT prophylaxis: Heparin subcu on hold due to hematuria, scds. if Hb stable, will resume heparin sc karol. DNR/DNI Patient's daughter/POA Ms. Odette Christie [phone]. Disposition: PT/OT, CM to assist with DC planning. Will need Uro f/u on DC. Updated pt's dtr 08/21 over the phone. Admission and Anticipated Discharge Date Admission Date: August 20, 2022 Subjective Patient seen and examined at bedside as a follow-up of hypoactive delirium likely secondary to hyponatremia on the background of possible end-stage dementia. Patient was lying in bed, on room air, does not appear to be in distress, mostly non communicative as usual. Appears alert. Per RN, patient has been confused on and off, he is a total feed/good eating. ROS not able due to cognition status. overnight had pvcs and metoprolol was added. Moving bowels. Physical Exam Physical Exam: GENERAL: Alert and awake. NAD, on RA. Appears confused, not able to cooperate. HEENT: No pallor, no icterus. Pupils equal, round and reactive to light. Oral mucosa dry. NECK: No JVD, no neck masses. HEART: S1 and S2 heard. Regular rate and rhythm. No murmur, no gallop. RESPIRATORY SYSTEM: Normal AP diameter. No accessory muscle use. No wheezing, no crackles. ABDOMEN: Soft, bowel sounds present, nontender, no distention. CENTRAL NERVOUS SYSTEM: No facial droop. Speech is clear. Obeys simple commands. Moves extremities. EXTREMITIES: No edema, no erythema seen. Various pressure point ulcer. low back w/ decubitus ulcer stage II. imaging reviewed, not examined as pt was not able to cooperate. UC w/ yellow urine collection noted. Results & Data Results & Data Vital Signs (Past 12 Hours) Vital Signs Temp Pulse Pulse Resp BP BP Pulse Ox 08/24/22 11:42 92/48 L 08/24/22 11:40 36.7 C 75 18 117/71 96 08/24/22 08:00 08/24/22 08:43 88 08/24/22 08:02 36.5 C 60 18 132/80 96 08/24/22 03:40 36.7 C 86 18 115/70 96 O2 Del Method 08/24/22 11:42 08/24/22 11:40 Room Air 08/24/22 08:00 Nasal Cannula 08/24/22 08:43 08/24/22 08:02 Room Air 08/24/22 03:40 Room Air (1) Dementia Dementia behavioral or psychological symptom: unspecified whether behavioral, psychotic, or mood disturbance or anxiety Dementia severity: severe Dementia type: unspecified type Qualified Code(s): F03.C0 - Unspecified dementia, severe, without behavioral disturbance, psychotic disturbance, mood disturbance, and anxiety
[2022-08-24] MEDS: TAMSULOSIN HCL 0.4 MG CAP PO SCH (20:34)
[2022-08-24] MEDS: LACTOBACILLUS ACIDOPHILUS 1 GM PACK PO SCH (20:34)
[2022-08-25 06:49] LABS: Hematocrit (blood only) 32.9 % (42.0-52.0); Hemoglobin 10.5 g/dl (14.0-18.0); Mean Corpuscular Hgb Conc 31.9 g/dL (32.0-36.0); Mean Corpuscular Volume 90.9 fL (80.0-100.0); Mean Platelet Volume 9.8 fL (9.4-12.4); Platelet Count 303 K/uL (130-400); RDW Coefficient of Variation 14.6 % (11.5-14.5); RDW Standard Deviation 47.9 fL (36.4-46.3); Red Blood Count 3.62 M/uL (4.70-6.10); White Blood Count 11.55 K/ul (4.8-10.8)
[2022-08-25 07:12] LABS: BUN Creatinine Ratio 18.9 (10-20); Calcium 8.9 mg/dl (8.6-10.3); Creatinine Clr Calc Pharmacy 91.7 ml/min; Est GFR (African American) 106.1 ml/min; Est GFR (Non-African American) 91.5 ml/min; Magnesium 2.1 mg/dl (1.7-2.4); Potassium 5.9 mmol/L (3.5-5.1)
[2022-08-25] MEDS: METOPROLOL TARTRATE 25 MG TAB PO SCH ×2 (08:55→21:29)
[2022-08-25] MEDS: LACTOBACILLUS ACIDOPHILUS 1 GM PACK PO SCH ×2 (08:55→21:29)
[2022-08-25] MEDS: cefTRIAXone SODIUM 2,000 MG in DEXTROSE 5% 50 ML IV SCH (11:39)
[2022-08-25 14:12] LABS: BUN Creatinine Ratio 21.2 (10-20); Calcium 8.3 mg/dl (8.6-10.3); Creatinine Clr Calc Pharmacy 102.8 ml/min; Est GFR (African American) 111.2 ml/min; Est GFR (Non-African American) 95.9 ml/min; Potassium 4.2 mmol/L (3.5-5.1)
--- NOTE | 2022-08-25 15:28 | Hospitalist Progress Note ---
Date of Service August 25, 2022 Assessment & Plan (1) Dementia: Plan 71-year-old male with PMH of chronic diastolic heart failure [EF 55%], CAD status post stent, CVA, GERD, chronic anemia [baseline hemoglobin of 12], BPH, mood disorder, past tobacco abuse, dementia was brought from the longterm by his daughter because his daughter was unhappy about patient's status and care at the facility. He is being managed for the following while in hospital: Possible end-stage dementia Dehydration, poor appetite Hyponatremia, hyperkalemia Concern for UTI Hypoactive delirium secondary to above Metabolic encephalopathy secondary to above Patient brought from longterm due to concern for poor care he was receiving there. Patient with history of dementia, likely worsening. Patient hyponatremic at presentation, potassium level increasing while in hospit al. Urine analysis looks dirty, follow-up with urine culture and admitting blood culture.-->> no growth so far. Poor diet today, consider IVF if not improved by evening. Electrolyte abn persists on and off likely depending on diet. speech evaled appreciate recs, diet yet to improve. Encourage p.o. intake. c/w ceftriaxone UTI/Urinary retention/Hematuria: uro evaled, pt to be on alvarado on DC, f/u w/ Uro as oP. PVCs: asymptomatic, metoprolol added 08/24 Decubitus ulcers at various stages POA: Stage II sacral ulcer Stage I right heel ulcer Stage II left heel ulcer Stage I other pressure-point ulcers including left elbow/bilateral ankle/right lateral st Wound care on board, appreciate care/recommendation. Low Air mattress. Other chronic medical conditions: Resume/continue with home meds as able. Chronic diastolic heart failure EF 55%patient on dry side Chronic anemia, hemoglobin at baseline Hyperglycemia, prediabetes, A1c of 5.8 Past tobacco abuse DVT prophylaxis: Heparin subcu on hold due to hematuria, scds. if Hb stable, will resume heparin sc karol. DNR/DNI Patient's daughter/POA Ms. Odette Christie [phone]. Disposition: PT/OT, CM to assist with DC planning. Will need Uro f/u on DC. likely in next 1-2 days. Updated pt's dtr 08/21 over the phone. Admission and Anticipated Discharge Date Admission Date: August 20, 2022 Subjective Patient seen and examined at bedside as a follow-up of hypoactive delirium likely secondary to hyponatremia on the background of possible end-stage demen tia. Patient was lying in bed, on room air, does not appear to be in distress, mostly non communicative as usual. somewhat lethargic today. Per RN, patient has been confused on and off, he is a total feed/not very good appetite for now. ROS not able due to cognition status. Moving bowels. Physical Exam Physical Exam: GENERAL: lethargic. NAD, on RA. Appears confused, not able to cooperate. HEENT: No pallor, no icterus. Pupils equal, round and reactive to light. Oral mucosa dry. NECK: No JVD, no neck masses. HEART: S1 and S2 heard. Regular rate and rhythm. No murmur, no gallop. RESPIRATORY SYSTEM: Normal AP diameter. No accessory muscle use. No wheezing, no crackles. ABDOMEN: Soft, bowel sounds present, nontender, no distention. CENTRAL NERVOUS SYSTEM: No facial droop. Speech is clear. Obeys simple commands. Moves extremities. EXTREMITIES: No edema, no erythema seen. Various pressure point ulcer. low back w/ decubitus ulcer stage II. imaging reviewed, not examined as pt was not able to cooperate. UC w/ yellow urine collection noted. Results & Data Results & Data Vital Signs (Past 12 Hours) Vital Signs Temp Pulse Pulse Resp BP Pulse Ox O2 Del Method 08/25/22 07:30 82 08/25/22 12:24 Room Air 08/25/22 11:27 36.6 C 80 18 137/76 95 Room Air 08/25/22 07:49 36.9 C 79 18 101/61 95 Room Air 08/25/22 03:41 36.9 C 79 20 106/66 97 Room Air (1) Dementia Dementia behavioral or psychological symptom: unspecified whether behavioral, psychotic, or mood disturbance or anxiety Dementia severity: severe Dementia type: unspecified type Qualified Code(s): F03.C0 - Unspecified dementia, severe, without behavioral disturbance, psychotic disturbance, mood disturbance, and anxiety
[2022-08-25] MEDS: TAMSULOSIN HCL 0.4 MG CAP PO SCH (21:29)
[2022-08-25] MEDS: HEPARIN SOD 5,000 UNIT/0.5 ML VIAL SQ SCH (21:30)
--- NOTE | 2022-08-25 22:01 | Electrocardiogram Report ---
Test Reason : Blood Pressure : / mmHG Vent. Rate : 084 BPM Atrial Rate : 084 BPM P-R Int : 146 ms QRS Dur : 086 ms QT Int : 388 ms P-R-T Axes : 089 -16 058 degrees QTc Int : 458 ms Sinus rhythm with Premature supraventricular complexes and with occasional Premature ventricular comp lexes Otherwise normal ECG No previous ECGs available Confirmed by Rogelio Apple ([id number] on 08/25/2022 10:01:39 PM Referred By: REFERRED SELF Confirmed By:Rogelio Apple
[2022-08-26] MEDS: HEPARIN SOD 5,000 UNIT/0.5 ML VIAL SQ SCH (05:28)
[2022-08-26 06:54] LABS: Hematocrit (blood only) 31.8 % (42.0-52.0); Mean Corpuscular Hemoglobin 29.2 pg (25.0-34.0); Mean Corpuscular Hgb Conc 31.4 g/dL (32.0-36.0); Mean Corpuscular Volume 92.7 fL (80.0-100.0); Mean Platelet Volume 9.6 fL (9.4-12.4); Platelet Count 271 K/uL (130-400); RDW Coefficient of Variation 14.7 % (11.5-14.5); RDW Standard Deviation 49.1 fL (36.4-46.3); Red Blood Count 3.43 M/uL (4.70-6.10); White Blood Count 10.81 K/ul (4.8-10.8)
[2022-08-26 07:13] LABS: BUN Creatinine Ratio 18.7 (10-20); Calcium 8.9 mg/dl (8.6-10.3); Creatinine Clr Calc Pharmacy 90.5 ml/min; Est GFR (African American) 105.5 ml/min; Phosphorus 2.9 mg/dl (2.5-4.9); Potassium 5.7 mmol/L (3.5-5.1)
[2022-08-26] MEDS: METOPROLOL TARTRATE 25 MG TAB PO SCH ×2 (09:35→21:50)
[2022-08-26] MEDS: LACTOBACILLUS ACIDOPHILUS 1 GM PACK PO SCH ×2 (09:35→21:49)
--- NOTE | 2022-08-26 09:53 | Nephrology Consultation ---
Date of Consultation August 26, 2022 Assessment & Plan (1) Hyperkalemia with normal acid-base balance: K 5.7 today from 4.2 yesterday. Given lability, suspect multifactorial >> ?artifact (though no hemolysis reported) versus ?heparin versus diet changes. no other potentially offending meds. -ensure labs are drawn according to proper technique -d/c or lower heparin if feasible -recheck bmp ordered; would avoid ABG d/t invasiveness of this test >> K 6.1 -if K still high, trial low dose lasix and recheck -continue lower K diet for now >hold off on standing lasix, veltassa, sodium bicarb but monitor for need History of Present Illness Reason for Consultation: recurrent hyperkalemia Requesting Physician: Dr Diaz Attending Physician: Ceasar Diaz MD History of Present Illness 71 y/o M whom I'm asked to see for recurrent dyskalemia especially hyperkalemia was admitted 08/20 with delirium, hypernatremia, and failure to thrive in the setting of worsening dementia and with chronic wounds; family asking for placement in different facility. PMH includes chronic diastolic heart failure (EF 55%), CAD status post stent, CVA, GERD, prostatic hypertrophy, past tobacco abuse. He was diagnosed with frontotemporal dementia late last year. His sodium was 160 on 08/14, was 146 on presentation here. His K was wnl on admission and previously in June but then increased to 5.7 on 08/21 and has been ping ponging between 3.3-5.9 ever since, sometimes within 24 hrs at either extre ky. He was unable to give ROS when I evaluated him. Allergies Allergy/AdvReac Type Severity Reaction Status Date / Time No Known Allergies Allergy Verified 08/20/22 19:27 Home Medications Medication Instructions Recorded Confirmed Type acetaminophen 325 mg tablet 650 mg PO Q6H PRN TEMP >101F/PAIN 08/20/22 08/20/22 History (Tylenol) dextrose 5 % in water (D5W) 1,000 ml IV Q8H 08/20/22 08/20/22 History nitroglycerin 0.4 mg sublingual 0.4 mg sublingual .Q5MIN PRN Chest 08/20/22 08/20/22 History tablet (Nitrostat) Pain polyethylene glycol 3350 17 17 g PO Q24H PRN Constipation 08/20/22 08/20/22 History gram/dose oral powder (Miralax) Patient History Medical History (HFpEF) heart failure with preserved ejection fraction CAD (coronary artery disease) Dementia Prostatic hypertrophy Stroke Surgical History H/O cystoscopy Family History Other Heart disease Social History Smoking Status: Current every day smoker Tobacco Type: Cigarettes Second Hand Exposure: No; Do You Dip or Chew Tobacco: No; Hx Alcohol Use: No Hx Substance Use: No Preferred Language: Greenlandic Communication Ability: Unable Chlorine Cells Operator Required: No Beliefs That Will Affect Care: None Current Living Situation: Residential Feels Safe at Home: Declines to Answer Assistive Devices: None Review of Systems Review of Systems: Unobtainable due to cognitive status Physical Exam Constitutional: well developed, + thin, + physical limitations and + frail appearing; no acute distress ENMT: Ears: no external ear abnormality Nose: no external nose abnormality Mouth: + dry oral mucous membranes Neck: no nuchal rigidity Respiratory: normal respiratory effort Auscultation: + diminished lung sounds Cardiovascular: Rate/Rhythm: regular rate and regular rhythm Extremities: no edema Gastrointestinal (Abdomen): Inspection/Auscultation: normal bowel sounds Percussion/Palpation: abdomen soft; abdomen nontender Musculoskeletal: Extremities: + abnormal strength Skin: no rashes, warm and dry Trauma: + evidence of skin trauma Neurologic: limbs contracted, does not speak or open eyes; no tremor Results & Data Vital Signs (Past 12 Hours) Vital Signs Temp Pulse Pulse Resp BP Pulse Ox O2 Del Method 08/26/22 09:35 81 130/80 08/26/22 08:00 36.8 C 79 20 131/66 96 Room Air 08/26/22 07:50 76 08/26/22 02:58 36.5 C 76 18 126/67 98 Room Air 08/25/22 23:41 36.7 C 75 18 118/62 96 Room Air Laboratory Results 08/26/22 06:09 08/26/22 06:09
[2022-08-26] MEDS: cefTRIAXone SODIUM 2,000 MG in DEXTROSE 5% 50 ML IV SCH (11:42)
[2022-08-26 12:07] LABS: BUN Creatinine Ratio 17.7 (10-20); Creatinine Clr Calc Pharmacy 85.9 ml/min; Est GFR (African American) 103.2 ml/min; Est GFR (Non-African American) 89.1 ml/min; Potassium 6.1 mmol/L (3.5-5.1)
[2022-08-26] MEDS ORDERED: FUROSEMIDE INJ 20 MG/2 ML VIAL IV ONE (12:19)
--- NOTE | 2022-08-26 15:54 | Hospitalist Progress Note ---
Date of Service August 26, 2022 Assessment & Plan (1) Dementia: Plan 71-year-old male with PMH of chronic diastolic heart failure [EF 55%], CAD status post stent, CVA, GERD, chronic anemia [baseline hemoglobin of 12], BPH, mood disorder, past tobacco abuse, dementia was brought from the group home by his daughter because his daughter was unhappy about patient's status and care at the facility. He is being managed for the following while in hospital: Possible end-stage dementia Dehydration, poor appetite Hyponatremia, hyperkalemia Concern for UTI Hypoactive delirium secondary to above Metabolic encephalopathy secondary to above Patient brought from group home due to concern for poor care he was receiving there. Patient with history of dementia, likely worsening. Patient hyponatremic at presentation, potassium level increasing while in hospit al. Urine analysis looks dirty, follow-up with urine culture and admitting blood culture.-->> no growth so far. Pt is a total feed/w/ appropriate appetite, consider IVF if w/ poor appetite. Hyperkalemia likely 2/2 heparin sc use, will dc heparin and use low dose eliquis for dvt px, will follow. D/w nephro and also w/ Dr. Vásquez about the same, appreciate recs. speech evaled appreciate recs, f/u on diet progress. Encourage p.o. intake. c/w ceftriaxone UTI/Urinary retention/Hematuria: uro evaled, pt to be on alvarado on DC, f/u w/ Uro as oP. PVCs: asymptomatic, metoprolol added 6/4 Decubitus ulcers at various stages POA: Stage II sacral ulcer Stage I right heel ulcer Stage II left heel ulcer Stage I other pressure-point ulcers including left elbow/bilateral ankle/right lateral st Wound care on board, appreciate care/recommendation. Low Air mattress. Other chronic medical conditions: Resume/continue with home meds as able. Chronic diastolic heart failure EF 55%patient on dry side Chronic anemia, hemoglobin at baseline Hyperglycemia, prediabetes, A1c of 5.8 Past tobacco abuse DVT prophylaxis: Heparin subcu on hold due to hematuria, scds. if Hb stable, will resume heparin sc karol. DNR/DNI Patient's daughter/POA Ms. Odette Christie [phone]. Disposition: PT/OT, CM to assist with DC planning. Will need Uro f/u on DC. Pending improvement of hyperkalemia. Updated pt's dtr 08/21 over the phone. Admission and Anticipated Discharge Date Admission Date: August 20, 2022 Subjective Patient seen and examined at bedside as a follow-up of hypoactive delirium likely secondary to hyponatremia on the background of possible end-stage dementia. Patient was lying in bed, on room air, does not appear to be in distress, mostly non communicative as usual. somewhat lethargic today. Per RN, patient has been confused on and off, he is a total feed. ROS not able due to cognition status. Moving bowels. Physical Exam Physical Exam: GENERAL: lethargic. NAD, on RA. Appears confused, not able to cooperate. HEENT: No pallor, no icterus. Pupils equal, round and reactive to light. Oral mucosa dry. NECK: No JVD, no neck masses. HEART: S1 and S2 heard. Regular rate and rhythm. No murmur, no gallop. RESPIRATORY SYSTEM: Normal AP diameter. No accessory muscle use. No wheezing, no crackles. ABDOMEN: Soft, bowel sounds present, nontender, no distention. CENTRAL NERVOUS SYSTEM: No facial droop. Speech is clear. Obeys simple commands. Moves extremities. EXTREMITIES: No edema, no erythema seen. Various pressure point ulcer. low back w/ decubitus ulcer stage II. imaging reviewed, not examined as pt was not able to cooperate. UC w/ yellow urine collection noted. Results & Data Results & Data Vital Signs (Past 12 Hours) Vital Signs Temp Pulse Pulse Resp BP Pulse Ox O2 Del Method 08/26/22 13:00 36.7 C 74 18 118/74 97 Room Air 08/26/22 07:00 Room Air 08/26/22 09:35 81 130/80 08/26/22 08:00 36.8 C 79 20 131/66 96 Room Air 08/26/22 07:50 76 (1) Dementia Dementia behavioral or psychological symptom: unspecified whether behavioral, psychotic, or mood disturbance or anxiety Dementia severity: severe Dementia type: unspecified type Qualified Code(s): F03.C0 - Unspecified dementia, severe, without behavioral disturbance, psychotic disturbance, mood disturbance, and anxiety
[2022-08-26 17:14] LABS: BUN Creatinine Ratio 19.4 (10-20); Calcium 8.8 mg/dl (8.6-10.3); Creatinine Clr Calc Pharmacy 101.3 ml/min; Est GFR (African American) 110.5 ml/min; Est GFR (Non-African American) 95.3 ml/min; Potassium 4.3 mmol/L (3.5-5.1)
[2022-08-26] MEDS ORDERED: HEPARIN SOD 5,000 UNIT/0.5 ML VIAL SQ SCH (21:00)
[2022-08-26] MEDS: TAMSULOSIN HCL 0.4 MG CAP PO SCH (21:49)
[2022-08-26] MEDS: APIXABAN 2.5 MG TAB PO SCH (21:50)
[2022-08-27] MEDS: ACETAMINOPHEN 325 MG TAB PO PRN ×2 (00:13→23:47)
[2022-08-27 07:20] LABS: Hematocrit (blood only) 32.4 % (42.0-52.0); Hemoglobin 10.3 g/dl (14.0-18.0); Mean Corpuscular Hemoglobin 28.9 pg (25.0-34.0); Mean Corpuscular Hgb Conc 31.8 g/dL (32.0-36.0); Mean Corpuscular Volume 90.8 fL (80.0-100.0); Mean Platelet Volume 9.7 fL (9.4-12.4); Platelet Count 303 K/uL (130-400); RDW Coefficient of Variation 14.7 % (11.5-14.5); RDW Standard Deviation 48.4 fL (36.4-46.3); Red Blood Count 3.57 M/uL (4.70-6.10); White Blood Count 8.97 K/ul (4.8-10.8)
[2022-08-27 07:43] LABS: Potassium 5.7 mmol/L (3.5-5.1)
[2022-08-27 07:44] LABS: BUN Creatinine Ratio 18.1 (10-20); Calcium 9.3 mg/dl (8.6-10.3); Creatinine Clr Calc Pharmacy 94.2 ml/min; Est GFR (African American) 107.3 ml/min; Est GFR (Non-African American) 92.5 ml/min
[2022-08-27] MEDS: METOPROLOL TARTRATE 25 MG TAB PO SCH ×2 (08:58→23:42)
[2022-08-27] MEDS: APIXABAN 2.5 MG TAB PO SCH ×2 (08:58→23:42)
[2022-08-27] MEDS: LACTOBACILLUS ACIDOPHILUS 1 GM PACK PO SCH ×2 (08:58→23:43)
[2022-08-27] MEDS ORDERED: FUROSEMIDE INJ 20 MG/2 ML VIAL IV ONE (09:48)
--- NOTE | 2022-08-27 09:52 | Nephrology Progress Note ---
Date of Service August 27, 2022 Assessment & Plan (1) Hyperkalemia with normal acid-base balance: Plan: K 5.7 today from 4.3 yesterday. Given persistent lability, suspect multifactorial >> ?artifact (though no hemolysis reported; ? draw technique though today correct technique witnessed x 2 by RN) versus ?heparin versus diet changes. no other potentially offending meds. ->>>ensure labs are drawn according to proper technique -cont to hold heparin if feasible -will start standing daily veltassa 8.5 gm today -will give lasix 10 mg IV x 1 as well -recheck bmp w/ CK, lactate for 1600 ordered > K wnl bu lactate mildly elevated >> ? mild lower degree of tissue perfusion -would avoid ABG d/t invasiveness of this test -continue lower K diet for now and ensure supplements are low K -would continue beta blocer given HR/tachycardia -ensure that pt is fed/eating and lily drinking well >hold off on standing lasix, sodium bicarb but monitor for need Admission and Anticipated Discharge Date Admission Date: August 20, 2022 Subjective moved otu of PCU. taking boost well; takes pills. k has been high again today (5.7). pt aphasic, does not interact w/ me or give ROS. RN reports large sloughing slightly odiferous sacral wound Review of Systems Review of Systems: Unobtainable due to cognitive status (aphasic) Physical Exam Constitutional: well developed, + thin, + physical limitations and + frail appearing; no acute distress ENMT: Ears: no external ear abnormality Nose: no external nose abnormality Mouth: + dry oral mucous membranes Neck: no nuchal rigidity Respiratory: normal respiratory effort Auscultation: + diminished lung sounds Cardiovascular: Rate/Rhythm: regular rate and regular rhythm Extremities: no edema Gastrointestinal (Abdomen): Inspection/Auscultation: normal bowel sounds Percussion/Palpation: abdomen soft; abdomen nontender Musculoskeletal: Extremities: + abnormal strength Skin: no rashes, warm and dry Trauma: + evidence of skin trauma (sacral wound not examined) Results & Data Vital Signs (Past 12 Hours) Vital Signs Temp Pulse Pulse Resp BP BP Pulse Ox 08/27/22 08:57 94 H 08/27/22 07:17 36.8 C 59 L 16 116/72 97 08/27/22 03:19 36.6 C 92 H 20 118/72 96 08/27/22 01:03 80 08/27/22 00:00 36.8 C 83 20 151/77 H 97 O2 Del Method 08/27/22 08:57 08/27/22 07:17 Room Air 08/27/22 03:19 Room Air 08/27/22 01:03 08/27/22 00:00 Room Air Laboratory Results 08/27/22 06:20 08/27/22 06:20
--- NOTE | 2022-08-27 10:30 | Hospitalist Progress Note ---
Date of Service August 27, 2022 Assessment & Plan (1) Dementia: Plan 71-year-old male with PMH of chronic diastolic heart failure [EF 55%], CAD status post stent, CVA, GERD, chronic anemia [baseline hemoglobin of 12], BPH, mood disorder, past tobacco abuse, dementia was brought from the group home by his daughter because his daughter was unhappy about patient's status and care at the facility. He is being managed for the following while in hospital: Possible end-stage dementia Dehydration, poor appetite Hyponatremia, hyperkalemia Concern for possible UTI Hypoactive delirium secondary to above Metabolic encephalopathy secondary to above Patient brought from group home due to concern for poor care he was receiving there. Patient with history of dementia, likely worsening. Patient hyponatremic at presentation. UA suggestive of possible UTI. Urine culture negative so far. Will deescalate antibiotics to complete 5 day therapy. Pt is a total feed/w/ appropriate appetite, consider IVF if w/ poor appetite. Hyperkalemia likely 2/2 heparin sc use Heparin was discontinued Currently on low dose eliquis for dvt px. Dr Diaz had discussed with nephro and also w/ Dr. Vásquez about the same Continue to monitor K. Was 5.7 this AM. Receck later today Nephro on board Speech evaled appreciate recs Continue pureed diet Encourage p.o. intake. UTI/Urinary retention/Hematuria: Uro derrick noted Currently on alvarado Continue alvarado on dc and f/u with Uro outapatient PVCs: Asymptomatic Continue metoprolol tartarate 12.5mg bid added on 08/24/22 Decubitus ulcers at various stages POA: Stage II sacral ulcer Stage I right heel ulcer Stage II left heel ulcer Stage I other pressure-point ulcers including left elbow/bilateral ankle/right lateral st Wound care on board, appreciate care/recommendation. Low Air mattress. Other chronic medical conditions: Resume/continue with home meds as able. Chronic diastolic heart failure EF 55%patient on dry side Chronic anemia, hemoglobin at baseline Hyperglycemia, prediabetes, A1c of 5.8 Past tobacco abuse DVT prophylaxis: Continue apixaban while inpatient DNR/DNI Patient's daughter/POA Ms. Odette Christie [phone]. Disposition: PT/OT, CM to assist with DC planning. Will need Uro f/u on DC. Admission and Anticipated Discharge Date Admission Date: August 20, 2022 Subjective Patient is seen and examined He is awake, alert and oriented to person only ROS is difficult due to cognitive status Physical Exam Constitutional: + well hydrated; no acute distress Eyes: PERRL, conjunctivae normal, anicteric sclerae ENMT: external ear and nose normal, oropharynx normal Respiratory: normal respiratory effort, lungs clear to auscultation Cardiovascular: Rate/Rhythm: regular rate and regular rhythm S1 S2 Gastrointestinal (Abdomen): normal bowel sounds, soft, nontender, no hepatosplenomegaly Musculoskeletal: Trace pedal edema Skin: Unable to assess decub ulcers at this time as patient was not cooperative Neurologic: PERRL, EOMI, AOx1 Genitourinary: Alvarado in situ Results & Data Results & Data Vital Signs (Past 12 Hours) Vital Signs Temp Pulse Pulse Resp BP BP Pulse Ox 08/27/22 08:57 94 H 08/27/22 07:17 36.8 C 59 L 16 116/72 97 08/27/22 03:19 36.6 C 92 H 20 118/72 96 08/27/22 01:03 80 08/27/22 00:00 36.8 C 83 20 151/77 H 97 O2 Del Method 08/27/22 08:57 08/27/22 07:17 Room Air 08/27/22 03:19 Room Air 08/27/22 01:03 08/27/22 00:00 Room Air Laboratory Results Abnormal lab results 08/26/22 08/26/22 08/27/22 Range/Units 11:12 16:37 06:20 RBC 3.57 L (4.70-6.10) M/uL Hgb 10.3 L (14.0-18.0) g/dl Hct 32.4 L (42.0-52.0) % MCHC 31.8 L (32.0-36.0) g/dL RDW Std Deviation 48.4 H (36.4-46.3) fL RDW Coeff of Neri 14.7 H (11.5-14.5) % Sodium 134 L (136-145) mmol/L Potassium 6.1 H* (3.5-5.1) mmol/L Chloride 108 H (98-107) mmol/L Glucose 146 H (70-99(Fasting)) mg/dl 08/27/22 Range/Units 06:20 RBC (4.70-6.10) M/uL Hgb (14.0-18.0) g/dl Hct (42.0-52.0) % MCHC (32.0-36.0) g/dL RDW Std Deviation (36.4-46.3) fL RDW Coeff of Neri (11.5-14.5) % Sodium (136-145) mmol/L Potassium 5.7 H D (3.5-5.1) mmol/L Chloride (98-107) mmol/L Glucose (70-99(Fasting)) mg/dl (1) Dementia Dementia behavioral or psychological symptom: unspecified whether behavioral, psychotic, or mood disturbance or anxiety Dementia severity: severe Dementia type: unspecified type Qualified Code(s): F03.C0 - Unspecified dementia, severe, without behavioral disturbance, psychotic disturbance, mood disturbance, and anxiety
[2022-08-27] MEDS: CEFDINIR 300 MG CAP PO SCH ×2 (12:22→23:43)
[2022-08-27 12:46] LABS: BUN Creatinine Ratio 17.8 (10-20); Calcium 8.7 mg/dl (8.6-10.3); Creatinine Clr Calc Pharmacy 92.9 ml/min; Est GFR (African American) 106.7 ml/min
[2022-08-27] MEDS: PATIROMER CALCIUM SORBITEX 8.4 GM PACK PO SCH (15:41)
[2022-08-27 17:00] LABS: BUN Creatinine Ratio 20.5 (10-20); Calcium 9.2 mg/dl (8.6-10.3); Creatinine Clr Calc Pharmacy 92.9 ml/min; Est GFR (African American) 106.7 ml/min; Potassium 4.5 mmol/L (3.5-5.1)
[2022-08-27] MEDS ORDERED: SODIUM CHLORIDE 0.9% 1000ML 1,000 ML IV ONE (17:35)
[2022-08-27] MEDS: TAMSULOSIN HCL 0.4 MG CAP PO SCH (23:43)
[2022-08-28] MEDS: METOPROLOL TARTRATE 25 MG TAB PO SCH (08:06)
[2022-08-28] MEDS: LACTOBACILLUS ACIDOPHILUS 1 GM PACK PO SCH ×2 (08:06→21:32)
[2022-08-28] MEDS: APIXABAN 2.5 MG TAB PO SCH ×2 (08:06→21:32)
[2022-08-28] MEDS: CEFDINIR 300 MG CAP PO SCH ×2 (08:07→21:32)
[2022-08-28 08:41] LABS: Hemoglobin 10.3 g/dl (14.0-18.0); Mean Corpuscular Hemoglobin 29.1 pg (25.0-34.0); Mean Corpuscular Hgb Conc 31.2 g/dL (32.0-36.0); Mean Corpuscular Volume 93.2 fL (80.0-100.0); Mean Platelet Volume 9.2 fL (9.4-12.4); Platelet Count 295 K/uL (130-400); RDW Coefficient of Variation 14.7 % (11.5-14.5); RDW Standard Deviation 49.8 fL (36.4-46.3); Red Blood Count 3.54 M/uL (4.70-6.10); White Blood Count 8.42 K/ul (4.8-10.8)
--- NOTE | 2022-08-28 08:57 | Nephrology Progress Note ---
Date of Service August 28, 2022 Assessment & Plan (1) Hyperkalemia with normal acid-base balance: Plan: K from this AM 5.7 again; 5.7 on 08/27 from 4.3 08/26. Given persistent lability, suspect multifactorial >> ?artifact (though no hemolysis reported; ? draw technique though today correct technique witnessed x 2 by RN) versus ?heparin versus diet changes. no other potentially offending meds. lactate mildly elevated >> suspect mild hypoperfusion of tissue such as at his wounds ->>>recheck bmp this PM pending -cont to ensure labs are drawn according to proper technique -cont to hold/minimize heparin if feasible -for now continue standing daily veltassa 8.5 gm today -if f/u K above target recommend lasix 10 mg IV x 1 as well -would avoid ABG d/t invasiveness of this test -continue lower K diet for now and ensure supplements are low K -d/w Dr Martin who will hold beta belle -ensure that pt is fed/eating and lily drinking well; verified that protein supplements are low K >hold off on standing lasix, sodium bicarb but monitor for need Admission and Anticipated Discharge Date Admission Date: August 20, 2022 Subjective bp improved some after IVF; K back up this am; no interval events. Review of Systems Review of Systems: Unobtainable due to cognitive status Physical Exam Constitutional: well developed, + thin, + physical limitations and + frail appearing; no acute distress ENMT: Ears: no external ear abnormality Nose: no external nose abnormality Mouth: + dry oral mucous membranes Neck: no nuchal rigidity Respiratory: normal respiratory effort Auscultation: + diminished lung sounds Cardiovascular: Rate/Rhythm: regular rate and regular rhythm Extremities: no edema Gastrointestinal (Abdomen): Inspection/Auscultation: normal bowel sounds Percussion/Palpation: abdomen soft; abdomen nontender Musculoskeletal: Extremities: + abnormal strength Skin: no rashes, warm and dry Trauma: + evidence of skin trauma (sacral wound not examined) Neurologic: does not interact w/ me; eyes closed during visit Results & Data Vital Signs (Past 12 Hours) Vital Signs Temp Pulse Pulse Resp BP BP Pulse Ox 08/28/22 08:40 36.5 C 83 17 110/61 97 08/28/22 03:08 36.6 C 86 20 113/65 93 08/27/22 22:36 90 08/27/22 23:30 08/27/22 23:25 36.6 C 83 20 125/57 L 95 O2 Del Method 08/28/22 08:40 Room Air 08/28/22 03:08 Room Air 08/27/22 22:36 08/27/22 23:30 Room Air 08/27/22 23:25 Room Air Laboratory Results 08/28/22 08:18 K 5.7 on labs this AM
[2022-08-28 09:08] LABS: Albumin Level 2.6 gm/dl (3.4-5.0); Bilirubin,Total 0.6 mg/dl (0.2-1.0); Calcium 9.3 mg/dl (8.6-10.3); Potassium 5.7 mmol/L (3.5-5.1)
[2022-08-28 09:25] LABS: Albumin Globulin Ratio 0.9 (0.9-2); BUN Creatinine Ratio 19.4 (10-20); Creatinine Clr Calc Pharmacy 96.9 ml/min; Est GFR (African American) 110.5 ml/min; Est GFR (Non-African American) 95.3 ml/min; Total Protein 5.6 gm/dl (6.0-8.3)
--- NOTE | 2022-08-28 09:44 | Hospitalist Progress Note ---
Date of Service August 28, 2022 Assessment & Plan (1) Dementia: Plan 71-year-old male with PMH of chronic diastolic heart failure [EF 55%], CAD status post stent, CVA, GERD, chronic anemia [baseline hemoglobin of 12], BPH, mood disorder, past tobacco abuse, dementia was brought from the group home by his daughter because his daughter was unhappy about patient's status and care at the facility. He is being managed for the following while in hospital: Possible end-stage dementia Dehydration, poor appetite Hyperkalemia Concern for possible UTI Hypoactive delirium secondary to above Metabolic encephalopathy secondary to above Patient brought from group home due to concern for poor care he was receiving there. Patient with history of dementia, likely worsening. Patient hyponatremic at presentation. UA suggestive of possible UTI. Urine culture negative so far. Will deescalate antibiotics to complete 5 day therapy. Pt is a total feed/w/ appropriate appetite, consider IVF if w/ poor appetite. Hyperkalemia likely 2/2 heparin sc use vs unclear etiology Heparin was discontinued. Last dose was on 08/26/22 Currently on low dose eliquis for dvt px. Dr Diaz had discussed with nephro and also w/ Dr. Vásquez about the same Continue to monitor K. Was 5.7 this AM. Discussed with Nephro. Will hold metoprolol for now. Continue monitoring Hypernatremia present on admission has resolved Speech evaled appreciate recs Continue pureed diet with assistance Encourage p.o. intake. Patient had elevated lactate yesterday. No other signs of infection at this time. No abd tenderness Unclear etiology. Resolved with IVF UTI/Urinary retention/Hematuria: Uro derrick noted Currently on alvarado Continue alvarado on dc and f/u with Uro outapatient Decubitus ulcers at various stages POA: Stage II sacral ulcer Stage I right heel ulcer Stage II left heel ulcer Stage I other pressure-point ulcers including left elbow/bilateral ankle/right lateral st Wound care on board, appreciate care/recommendation. Low Air mattress. Other chronic medical conditions: Resume/continue with home meds as able. Chronic diastolic heart failure EF 55%patient on dry side Chronic anemia, hemoglobin at baseline Hyperglycemia, prediabetes, A1c of 5.8 Past tobacco abuse DVT prophylaxis: Continue apixaban while inpatient DNR/DNI Patient's daughter/POA Ms. Odette Christie [phone]. Disposition: PT/OT, CM to assist with DC planning. Will need Uro f/u on DC. I spent a total of 40 minutes coordinating, documenting and providing care for this patient excluding time spent in performance of separately billed services Admission and Anticipated Discharge Date Admission Date: August 20, 2022 Subjective Patient is seen and examined He is awake, alert and not oriented to person, place or time Not answering questions. He tracks and cooperative ROS is difficult due to cognitive status Physical Exam Constitutional: + well hydrated; no acute distress Eyes: PERRL, conjunctivae normal, anicteric sclerae ENMT: external ear and nose normal, oropharynx normal Respiratory: normal respiratory effort, lungs clear to auscultation Cardiovascular: Rate/Rhythm: regular rate and regular rhythm S1 S2 Gastrointestinal (Abdomen): normal bowel sounds, soft, nontender, no hepatosplenomegaly Skin: Multiple decub ulcers in the feet with some blisters. Stage II sacral decub Neurologic: PERRL EOMI Alert. not oriented Genitourinary: Alvarado in situ Results & Data Results & Data Vital Signs (Past 12 Hours) Vital Signs Temp Pulse Pulse Resp BP BP Pulse Ox 08/28/22 08:40 36.5 C 83 17 110/61 97 08/28/22 03:08 36.6 C 86 20 113/65 93 08/27/22 22:36 90 08/27/22 23:30 08/27/22 23:25 36.6 C 83 20 125/57 L 95 O2 Del Method 08/28/22 08:40 Room Air 08/28/22 03:08 Room Air 08/27/22 22:36 08/27/22 23:30 Room Air 08/27/22 23:25 Room Air Laboratory Results Abnormal lab results 08/27/22 08/27/22 08/27/22 Range/Units 12:02 16:11 16:11 RBC (4.70-6.10) M/uL Hgb (14.0-18.0) g/dl Hct (42.0-52.0) % MCHC (32.0-36.0) g/dL RDW Std Deviation (36.4-46.3) fL RDW Coeff of Neri (11.5-14.5) % MPV (9.4-12.4) fL Sodium 134 L 135 L (136-145) mmol/L Potassium (3.5-5.1) mmol/L BUN/Creatinine Ratio 20.5 H (10-20) Glucose 184 H 110 H (70-99(Fasting)) mg/dl Lactate 2.9 H* (0.4-2.0) mmol/L Total Creatine Kinase 21 L (30-223) U/L Total Protein (6.0-8.3) gm/dl Albumin (3.4-5.0) gm/dl 08/27/22 08/28/22 08/28/22 Range/Units 20:01 08:18 08:18 RBC 3.54 L (4.70-6.10) M/uL Hgb 10.3 L (14.0-18.0) g/dl Hct 33.0 L (42.0-52.0) % MCHC 31.2 L (32.0-36.0) g/dL RDW Std Deviation 49.8 H (36.4-46.3) fL RDW Coeff of Neri 14.7 H (11.5-14.5) % MPV 9.2 L (9.4-12.4) fL Sodium (136-145) mmol/L Potassium 5.7 H D (3.5-5.1) mmol/L BUN/Creatinine Ratio (10-20) Glucose 106 H (70-99(Fasting)) mg/dl Lactate 5.7 H* (0.4-2.0) mmol/L Total Creatine Kinase (30-223) U/L Total Protein 5.6 L (6.0-8.3) gm/dl Albumin 2.6 L (3.4-5.0) gm/dl (1) Dementia Dementia behavioral or psychological symptom: unspecified whether behavioral, psychotic, or mood disturbance or anxiety Dementia severity: severe Dementia type: unspecified type Qualified Code(s): F03.C0 - Unspecified dementia, severe, without behavioral disturbance, psychotic disturbance, mood disturbance, and anxiety
[2022-08-28] MEDS: PATIROMER CALCIUM SORBITEX 8.4 GM PACK PO SCH (12:26)
[2022-08-28 17:38] LABS: Calcium 9.2 mg/dl (8.6-10.3)
[2022-08-28 17:42] LABS: BUN Creatinine Ratio 20.3 (10-20); Creatinine Clr Calc Pharmacy 110.1 ml/min; Est GFR (African American) 116.4 ml/min; Est GFR (Non-African American) 100.4 ml/min
[2022-08-28] MEDS: TAMSULOSIN HCL 0.4 MG CAP PO SCH (21:32)
[2022-08-28] MEDS: ACETAMINOPHEN 325 MG TAB PO PRN (21:34)
[2022-08-29] MEDS: LACTOBACILLUS ACIDOPHILUS 1 GM PACK PO SCH ×2 (08:02→20:40)
[2022-08-29] MEDS: APIXABAN 2.5 MG TAB PO SCH ×2 (08:02→20:40)
[2022-08-29] MEDS: CEFDINIR 300 MG CAP PO SCH (08:02)
[2022-08-29 09:30] LABS: Hematocrit (blood only) 30.7 % (42.0-52.0); Hemoglobin 10.1 g/dl (14.0-18.0); Mean Corpuscular Hgb Conc 32.9 g/dL (32.0-36.0); Mean Corpuscular Volume 88.2 fL (80.0-100.0); Mean Platelet Volume 9.6 fL (9.4-12.4); Platelet Count 262 K/uL (130-400); RDW Coefficient of Variation 14.9 % (11.5-14.5); RDW Standard Deviation 47.5 fL (36.4-46.3); Red Blood Count 3.48 M/uL (4.70-6.10); White Blood Count 8.18 K/ul (4.8-10.8)
[2022-08-29 09:36] LABS: BUN Creatinine Ratio 19.4 (10-20); Calcium 8.9 mg/dl (8.6-10.3); Creatinine Clr Calc Pharmacy 95.4 ml/min; Est GFR (African American) 110.5 ml/min; Est GFR (Non-African American) 95.3 ml/min; Magnesium 1.6 mg/dl (1.7-2.4); Potassium 3.8 mmol/L (3.5-5.1)
--- NOTE | 2022-08-29 11:09 | Nephrology Progress Note ---
Date of Service August 29, 2022 Assessment & Plan (1) Hyperkalemia with normal acid-base balance: Plan: K wnl his am after elevations recently. 5.7 08/28, 5.7 on 08/27 from 4.3 /. Given persistent lability, suspect multifactorial >> ?artifact (though no hemolysis reported; ? draw technique though today correct technique witnessed x 2 by RN) versus ?heparin versus diet changes. no other potentially offending meds. lactate mildly elevated >> suspect mild hypoperfusion of tissue such as at his wounds ->>>recheck bmp this PM 1600 ordered given lability >> wnl -cont to ensure labs are drawn according to proper technique -cont to hold/minimize heparin if feasible -for now continue standing daily veltassa 8.5 gm today >> will put hold parameters on veltassa -would avoid ABG d/t invasiveness of this test -continue lower K diet for now -cont to hold beta belle -ensure that pt is fed/eating and lily drinking well; verified that protein supplements are low K >hold off on standing lasix, sodium bicarb but monitor for need Admission and Anticipated Discharge Date Admission Date: August 20, 2022 Subjective opens eyes but no interaction or other response to exam maneuvers today. K has normalized Review of Systems Review of Systems: Unobtainable due to cognitive status Physical Exam Constitutional: well developed, + thin, + physical limitations and + frail appearing; no acute distress ENMT: Ears: no external ear abnormality Nose: no external nose abnormality Mouth: + dry oral mucous membranes Neck: no nuchal rigidity Respiratory: normal respiratory effort Auscultation: + diminished lung sounds Cardiovascular: Rate/Rhythm: regular rate and regular rhythm Extremities: no edema Gastrointestinal (Abdomen): Inspection/Auscultation: normal bowel sounds Percussion/Palpation: abdomen soft; abdomen nontender Musculoskeletal: Extremities: + abnormal strength Skin: no rashes, warm and dry Trauma: + evidence of skin trauma (sacral wound not examined) Neurologic: contractures, no tremor, no tracking, nonverbal Results & Data Vital Signs (Past 12 Hours) Vital Signs Temp Pulse Pulse Pulse Resp BP Pulse Ox 08/29/22 08:00 99 H 08/29/22 07:46 37.4 C 72 16 122/59 L 96 08/29/22 03:55 37.1 C 94 H 16 133/63 96 08/28/22 23:08 121 H O2 Del Method 08/29/22 08:00 08/29/22 07:46 Room Air 08/29/22 03:55 Room Air 08/28/22 23:08 Laboratory Results 08/29/22 08:34 08/29/22 08:34
[2022-08-29] MEDS: PATIROMER CALCIUM SORBITEX 8.4 GM PACK PO SCH (12:01)
--- NOTE | 2022-08-29 12:23 | Hospitalist Progress Note ---
Date of Service August 29, 2022 Assessment & Plan (1) Dementia: Plan 71-year-old male with PMH of chronic diastolic heart failure [EF 55%], CAD status post stent, CVA, GERD, chronic anemia [baseline hemoglobin of 12], BPH, mood disorder, past tobacco abuse, dementia was brought from the [facility] by his daughter because his daughter was unhappy about patient's status and care at the facility. He is being managed for the following while in hospital: Possible end-stage dementia Dehydration, poor appetite Hyperkalemia Concern for possible UTI Hypoactive delirium secondary to above Metabolic encephalopathy secondary to above Patient brought from [facility] due to concern for poor care he was receiving there. Patient with history of dementia, likely worsening. Patient hypernatremic at presentation. UA suggestive of possible UTI. Urine culture negative so far. Completed antibiotics today Pt is a total feed/w/ appropriate appetite Hyperkalemia likely 2/2 heparin sc use vs unclear etiology Heparin was discontinued. Last dose was on 08/26/22 Currently on low dose eliquis for dvt px. Dr Diaz had discussed with nephro and also w/ Dr. Vásquez about the same Potassium levels have been labile. Will continue to monitor. 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 intake. Start po magnesium for hypomagnesemia Patient had elevated lactate. No other signs of infection at this time. Unclear etiology. Resolved with IVF UTI/Urinary retention/Hematuria: Uro derrick noted Currently on alavrado Continue alvarado on dc and f/u with Uro outapatient Decubitus ulcers at various stages POA: Stage II sacral ulcer Stage I right heel ulcer Stage II left heel ulcer Stage I other pressure-point ulcers including left elbow/bilateral ankle/right lateral st Wound care on board, appreciate care/recommendation. Low Air mattress. Other chronic medical conditions: Resume/continue with home meds as able. Chronic diastolic heart failure EF 55%patient on dry side Chronic anemia, hemoglobin at baseline Hyperglycemia, prediabetes, A1c of 5.8 Past tobacco abuse DVT prophylaxis: Continue apixaban while inpatient DNR/DNI Patient's daughter/POA Ms. Odette Christie [phone]. Disposition: PT/OT, CM to assist with DC planning. Will need Uro f/u on DC. I spent a total of 40 minutes coordinating, documenting and providing care for this patient excluding time spent in performance of separately billed services Admission and Anticipated Discharge Date Admission Date: August 20, 2022 Subjective Patient is seen and examined He is awake, alert and not oriented to person, place or time Not answering questions. ROS is difficult due to cognitive status Physical Exam Constitutional: + well hydrated; no acute distress Eyes: PERRL, conjunctivae normal, anicteric sclerae ENMT: external ear and nose normal, oropharynx normal Respiratory: normal respiratory effort, lungs clear to auscultation Cardiovascular: Rate/Rhythm: regular rate and regular rhythm S1 S2 Gastrointestinal (Abdomen): normal bowel sounds, soft, nontender, no hepatosplenomegaly Musculoskeletal: +ankle edema Skin: Multiple decub ulcers in the feet with some blisters. Stage II sacral decub Neurologic: Alert. Not oriented Genitourinary: Alvarado in situ Results & Data Results & Data Vital Signs (Past 12 Hours) Vital Signs Temp Pulse Pulse Pulse Resp BP Pulse Ox 08/29/22 11:49 37.4 C 64 18 132/58 L 96 08/29/22 08:00 99 H 08/29/22 07:46 37.4 C 72 16 122/59 L 96 08/29/22 03:55 37.1 C 94 H 16 133/63 96 O2 Del Method 08/29/22 11:49 Room Air 08/29/22 08:00 08/29/22 07:46 Room Air 08/29/22 03:55 Room Air Laboratory Results Abnormal lab results 08/28/22 08/29/22 08/29/22 Range/Units 16:59 08:34 08:34 RBC 3.48 L (4.70-6.10) M/uL Hgb 10.1 L (14.0-18.0) g/dl Hct 30.7 L (42.0-52.0) % RDW Std Deviation 47.5 H (36.4-46.3) fL RDW Coeff of Neri 14.9 H (11.5-14.5) % Sodium 135 L 135 L (136-145) mmol/L Creatinine 0.59 L (0.6-1.4) mg/dl BUN/Creatinine Ratio 20.3 H (10-20) Glucose 123 H 148 H (70-99(Fasting)) mg/dl Magnesium 1.6 L (1.7-2.4) mg/dl (1) Dementia Dementia behavioral or psychological symptom: unspecified whether behavioral, psychotic, or mood disturbance or anxiety Dementia severity: severe Dementia type: unspecified type Qualified Code(s): F03.C0 - Unspecified dementia, severe, without behavioral disturbance, psychotic disturbance, mood disturbance, and anxiety
[2022-08-29 16:32] LABS: BUN Creatinine Ratio 18.6 (10-20); Calcium 8.8 mg/dl (8.6-10.3); Creatinine Clr Calc Pharmacy 91.3 ml/min; Est GFR (African American) 108.5 ml/min; Est GFR (Non-African American) 93.6 ml/min; Potassium 3.8 mmol/L (3.5-5.1)
[2022-08-29] MEDS: MAGNESIUM OXIDE 400 MG TAB PO SCH (16:40)
[2022-08-29] MEDS: TAMSULOSIN HCL 0.4 MG CAP PO SCH (20:40)
[2022-08-30 06:35] LABS: BUN Creatinine Ratio 19.7 (10-20); Calcium 9.1 mg/dl (8.6-10.3); Creatinine Clr Calc Pharmacy 109.5 ml/min; Est GFR (African American) 114.8 ml/min; Est GFR (Non-African American) 99.1 ml/min; Magnesium 1.6 mg/dl (1.7-2.4); Phosphorus 3.2 mg/dl (2.5-4.9)
[2022-08-30] MEDS: LACTOBACILLUS ACIDOPHILUS 1 GM PACK PO SCH ×2 (08:16→20:15)
[2022-08-30] MEDS: APIXABAN 2.5 MG TAB PO SCH ×2 (08:16→20:15)
[2022-08-30] MEDS: MAGNESIUM OXIDE 400 MG TAB PO SCH (08:17)
--- NOTE | 2022-08-30 09:04 | Hospitalist Progress Note ---
Date of Service August 30, 2022 Assessment & Plan (1) Dementia: Plan 71-year-old male with PMH of chronic diastolic heart failure [EF 55%], CAD status post stent, CVA, GERD, chronic anemia [baseline hemoglobin of 12], BPH, mood disorder, past tobacco abuse, dementia was brought from the senior living by his daughter because his daughter was unhappy about patient's status and care at the facility. He is being managed for the following while in hospital: Possible end-stage dementia Dehydration, poor appetite Hyperkalemia Concern for possible UTI Hypoactive delirium secondary to above Metabolic encephalopathy secondary to above Patient brought from senior living due to concern for poor care he was receiving there. Patient with history of dementia, likely worsening. Patient hypernatremic at presentation. UA suggestive of possible UTI. Urine culture negative so far. Completed antibiotics Pt is a total feed/w/ appropriate appetite Hyperkalemia likely 2/2 heparin sc use vs unclear etiology Heparin was discontinued. Last dose was on 08/26/22 Currently on low dose eliquis for dvt px. Dr Diaz had discussed with nephro and also w/ Dr. Vásquez about the same Potassium levels have been stable in the past 24h. Will continue to monitor. Continue to hold metoprolol started for asymptomatic PACs on tele Pcmh Specialist recs noted Hypernatremia present on admission has resolved Speech recs noted Continue pureed diet with assistance Encourage p.o. intake. Continue po magnesium for hypomagnesemia Patient had elevated lactate. No other signs of infection at this time. Unclear etiology. Resolved with IVF UTI/Urinary retention/Hematuria: Uro derrick noted Currently on alvarado Continue alvarado on dc and f/u with Uro outapatient Decubitus ulcers at various stages POA: Stage II sacral ulcer Stage I right heel ulcer Stage II left heel ulcer Stage I other pressure-point ulcers including left elbow/bilateral ankle/right lateral st Wound care on board, appreciate care/recommendation. Low Air mattress. Other chronic medical conditions: Resume/continue with home meds as able. Chronic diastolic heart failure EF 55%patient on dry side Chronic anemia, hemoglobin at baseline Hyperglycemia, prediabetes, A1c of 5.8 Past tobacco abuse DVT prophylaxis: Continue apixaban while inpatient DNR/DNI Patient's daughter/POA Ms. Odette Christie [phone]. Disposition: PT/OT, CM to assist with DC planning. Will need Uro f/u on DC. I spent a total of 35 minutes coordinating, documenting and providing care for this patient excluding time spent in performance of separately billed services Admission and Anticipated Discharge Date Admission Date: August 20, 2022 Subjective Patient is seen and examined He is awake, alert and not oriented to person, place or time ROS is difficult due to cognitive status Physical Exam Constitutional: + well hydrated; no acute distress Eyes: PERRL, conjunctivae normal, anicteric sclerae ENMT: external ear and nose normal, oropharynx normal Respiratory: normal respiratory effort, lungs clear to auscultation Cardiovascular: Rate/Rhythm: regular rate and regular rhythm S1 S2 Gastrointestinal (Abdomen): normal bowel sounds, soft, nontender, no hepatosplenomegaly Musculoskeletal: +ankle edema Skin: Multiple decub ulcers in the feet Stage II sacral decub Neurologic: Alert. Not oriented. Laying calmly in bed Genitourinary: Alvarado in situ Results & Data Results & Data Vital Signs (Past 12 Hours) Vital Signs Temp Pulse Pulse Resp BP Pulse Ox O2 Del Method 08/30/22 07:39 36.9 C 76 16 127/78 97 Room Air 08/30/22 02:50 36.8 C 75 18 122/69 96 Room Air 08/29/22 22:45 101 H 08/29/22 23:17 37.6 C H 85 18 145/72 H 96 Room Air Laboratory Results Abnormal lab results 08/29/22 08/30/22 Range/Units 15:46 05:43 Sodium 135 L 135 L (136-145) mmol/L Glucose 103 H 116 H (70-99(Fasting)) mg/dl Magnesium 1.6 L (1.7-2.4) mg/dl (1) Dementia Dementia behavioral or psychological symptom: unspecified whether behavioral, psychotic, or mood disturbance or anxiety Dementia severity: severe Dementia type: unspecified type Qualified Code(s): F03.C0 - Unspecified dementia, severe, without behavioral disturbance, psychotic disturbance, mood disturbance, and anxiety
[2022-08-30] MEDS: bisacodyL 10 MG SUPP PR PRN (12:10)
[2022-08-30] MEDS: PATIROMER CALCIUM SORBITEX 8.4 GM PACK PO SCH (12:14)
[2022-08-30] MEDS: TAMSULOSIN HCL 0.4 MG CAP PO SCH (20:15)
[2022-08-31 06:26] LABS: BUN Creatinine Ratio 21.3 (10-20); Calcium 8.8 mg/dl (8.6-10.3); Creatinine Clr Calc Pharmacy 107.4 ml/min; Est GFR (African American) 114.8 ml/min; Est GFR (Non-African American) 99.1 ml/min; Magnesium 1.5 mg/dl (1.7-2.4); Phosphorus 3.3 mg/dl (2.5-4.9); Potassium 3.8 mmol/L (3.5-5.1)
[2022-08-31] MEDS: APIXABAN 2.5 MG TAB PO SCH ×2 (08:08→21:11)
[2022-08-31] MEDS: MAGNESIUM OXIDE 400 MG TAB PO SCH (08:08)
[2022-08-31] MEDS: LACTOBACILLUS ACIDOPHILUS 1 GM PACK PO SCH ×2 (08:08→21:11)
[2022-08-31] MEDS ORDERED: MAGNESIUM SULFATE / D5W 1 GM/100 ML BAG IV ONE (08:09)
--- NOTE | 2022-08-31 10:25 | Hospitalist Progress Note ---
Date of Service August 31, 2022 Assessment & Plan (1) Dementia: Plan 71-year-old male with PMH of chronic diastolic heart failure [EF 55%], CAD status post stent, CVA, GERD, chronic anemia [baseline hemoglobin of 12], BPH, mood disorder, past tobacco abuse, dementia [facility] daughter because his daughter was unhappy about patient's status and care at the facility. He is being managed for the following while in hospital: Possible end-stage dementia Dehydration, poor appetite Hyperkalemia Concern for possible UTI Hypoactive delirium secondary to above Metabolic encephalopathy secondary to above Patient brought from [facility] due to concern for poor care he was receiving there. Patient with history of dementia, likely worsening. Patient hypernatremic at presentation. UA suggestive of possible UTI. Urine culture negative so far. Completed antibiotics Pt is a total feed/w/ appropriate appetite Hyperkalemia likely 2/2 heparin sc use vs unclear etiology Heparin was discontinued. Last dose was on 08/26/22 Currently on low dose eliquis for dvt px. Dr Diaz had discussed with nephro and also w/ Dr. 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 intake. Continue po magnesium for hypomagnesemia. Will give 1g IV Mg sulphate as well today Patient had elevated lactate. No other signs of infection at this time. Unclear etiology. Resolved with IVF UTI/Urinary retention/Hematuria: Uro derrick noted Currently on alvarado Continue alvarado on dc and f/u with Uro outapatient Decubitus ulcers at various stages POA: Stage II sacral ulcer Stage I right heel ulcer Stage II left heel ulcer Stage I other pressure-point ulcers including left elbow/bilateral ankle/right lateral st Wound care on board, appreciate care/recommendation. Low Air mattress. Other chronic medical conditions: Resume/continue with home meds as able. Chronic diastolic heart failure EF 55%patient on dry side Chronic anemia, hemoglobin at baseline Hyperglycemia, prediabetes, A1c of 5.8 Past tobacco abuse DVT prophylaxis: Continue apixaban while inpatient DNR/DNI Patient's daughter/POA Ms. Odette Christie [phone]. Disposition: PT/OT, CM to assist with DC planning. Will need Uro f/u on DC. I spent a total of 35 minutes coordinating, documenting and providing care for this patient excluding time spent in performance of separately billed services Admission and Anticipated Discharge Date Admission Date: August 20, 2022 Subjective Patient is seen and examined He is awake, alert and not oriented to person, place or time ROS is difficult due to cognitive status Physical Exam Constitutional: + well hydrated; no acute distress Eyes: PERRL, conjunctivae normal, anicteric sclerae ENMT: external ear and nose normal, oropharynx normal Respiratory: normal respiratory effort, lungs clear to auscultation Cardiovascular: Rate/Rhythm: regular rate and regular rhythm S1 S2 Gastrointestinal (Abdomen): normal bowel sounds, soft, nontender, no hepatosplenomegaly Skin: Multiple decub ulcers in the feet Stage II sacral decub Neurologic: Alert not oriented and does not follow commands Genitourinary: alvarado in situ Results & Data Results & Data Vital Signs (Past 12 Hours) Vital Signs Temp Pulse Pulse Pulse Resp BP BP 08/31/22 08:00 95 H 08/31/22 07:16 37.0 C 73 16 112/57 L 08/31/22 02:59 36.5 C 64 18 126/61 08/30/22 23:20 112 H 08/30/22 22:59 37.5 C 72 18 108/58 L Pulse Ox O2 Del Method 08/31/22 08:00 08/31/22 07:16 99 Room Air 08/31/22 02:59 98 Room Air 08/30/22 23:20 08/30/22 22:59 97 Room Air Laboratory Results Abnormal lab results 08/31/22 Range/Units 05:43 Sodium 134 L (136-145) mmol/L BUN/Creatinine Ratio 21.3 H (10-20) Glucose 114 H (70-99(Fasting)) mg/dl Magnesium 1.5 L (1.7-2.4) mg/dl (1) Dementia Dementia behavioral or psychological symptom: unspecified whether behavioral, psychotic, or mood disturbance or anxiety Dementia severity: severe Dementia type: unspecified type Qualified Code(s): F03.C0 - Unspecified dementia, severe, without behavioral disturbance, psychotic disturbance, mood disturbance, and anxiety
[2022-08-31] MEDS: PATIROMER CALCIUM SORBITEX 8.4 GM PACK PO SCH (12:06)
[2022-08-31] MEDS: ACETAMINOPHEN 325 MG TAB PO PRN (13:41)
[2022-08-31] MEDS: TAMSULOSIN HCL 0.4 MG CAP PO SCH (21:11)
[2022-09-01 07:21] LABS: BUN Creatinine Ratio 21.7 (10-20); Calcium 8.7 mg/dl (8.6-10.3); Creatinine Clr Calc Pharmacy 108.4 ml/min; Est GFR (African American) 115.6 ml/min; Est GFR (Non-African American) 99.7 ml/min; Magnesium 1.6 mg/dl (1.7-2.4); Phosphorus 3.1 mg/dl (2.5-4.9); Potassium 3.4 mmol/L (3.5-5.1)
[2022-09-01] MEDS: APIXABAN 2.5 MG TAB PO SCH ×2 (09:45→20:15)
[2022-09-01] MEDS: LACTOBACILLUS ACIDOPHILUS 1 GM PACK PO SCH ×2 (09:45→20:15)
[2022-09-01] MEDS: MAGNESIUM SULFATE / D5W 1 GM/100 ML BAG IV SCH ×2 (09:45→11:33)
[2022-09-01] MEDS: MAGNESIUM OXIDE 400 MG TAB PO SCH (09:45)
--- NOTE | 2022-09-01 11:17 | Hospitalist Progress Note ---
Date of Service September 01, 2022 Assessment & Plan (1) Dementia: Plan 71-year-old male with PMH of chronic diastolic heart failure [EF 55%], CAD status post stent, CVA, GERD, chronic anemia [baseline hemoglobin of 12], BPH, mood disorder, past tobacco abuse, dementia was brought from the shelter by his daughter because his daughter was unhappy about patient's status and care at the facility. He is being managed for the following while in hospital: Possible end-stage dementia Dehydration, poor appetite Hyperkalemia Concern for possible UTI Hypoactive delirium Metabolic encephalopathy Patient brought from shelter due to concern for poor care he was receiving there. Patient with history of dementia, likely worsening. Patient hypernatremic at presentation. UA suggestive of possible UTI. Urine culture negative so far. Completed antibiotics Pt is a total feed/w/ appropriate appetite Hyperkalemia likely 2/2 heparin sc use vs unclear etiology Heparin was discontinued. Last dose was on 08/26/22 Currently on low dose eliquis for DVT ppx. Dr Diaz had discussed with nephro and also w/ Dr. Vásquez about the same Hyperkalemia has resolved. K is 3.4 today Continue to hold metoprolol started for asymptomatic PACs on tele Teacher Education Director recs noted Hypernatremia present on admission has resolved Speech recs noted Continue pureed diet with assistance Encourage p.o. intake. Replete hypomagnesemia Patient had elevated lactate. No other signs of infection at this time. Unclear etiology. Resolved with IVF UTI/Urinary retention/Hematuria: Uro derrick noted Currently on alvarado Continue alvarado on dc and f/u with Uro outapatient Decubitus ulcers at various stages POA: Stage II sacral ulcer Stage I right heel ulcer Stage II left heel ulcer Stage I other pressure-point ulcers including left elbow/bilateral ankle/right lateral st Wound care on board, appreciate care/recommendation. Low Air mattress. Other chronic medical conditions: Resume/continue with home meds as able. Chronic diastolic heart failure EF 55%patient on dry side Chronic anemia, hemoglobin at baseline Hyperglycemia, prediabetes, A1c of 5.8 Past tobacco abuse DVT prophylaxis: Continue apixaban while inpatient DNR/DNI Patient's daughter/POA Ms. Odette Christie [phone]. Disposition: PT/OT, CM to assist with DC planning. Will need Uro f/u on DC. Call to daughter today went to [facility] I spent a total of 35 minutes coordinating, documenting and providing care for this patient excluding time spent in performance of separately billed services Admission and Anticipated Discharge Date Admission Date: August 20, 2022 Subjective Patient is seen and examined ROS is difficult due to cognitive status Physical Exam Constitutional: + well hydrated; no acute distress Eyes: PERRL, conjunctivae normal, anicteric sclerae ENMT: external ear and nose normal, oropharynx normal Respiratory: normal respiratory effort, lungs clear to auscultation Cardiovascular: Rate/Rhythm: regular rate and regular rhythm S1 S2 Gastrointestinal (Abdomen): normal bowel sounds, soft, nontender, no hepatosplenomegaly Musculoskeletal: Multiple decub ulcers in the feet Stage II sacral decub Neurologic: Alert not oriented and does not follow commands Genitourinary: Alvarado in situ Results & Data Results & Data Vital Signs (Past 12 Hours) Vital Signs Temp Pulse Pulse Pulse Resp BP BP 09/01/22 08:35 36.5 C 82 17 116/67 09/01/22 07:18 93 H 09/01/22 04:50 36.5 C 09/01/22 03:09 37.8 C H 81 16 106/50 L 08/31/22 23:47 102 H Pulse Ox O2 Del Method 09/01/22 08:35 97 Room Air 09/01/22 07:18 09/01/22 04:50 09/01/22 03:09 97 Room Air 08/31/22 23:47 Laboratory Results Abnormal lab results 09/01/22 Range/Units 06:26 Sodium 134 L (136-145) mmol/L Potassium 3.4 L (3.5-5.1) mmol/L BUN/Creatinine Ratio 21.7 H (10-20) Glucose 112 H (70-99(Fasting)) mg/dl Magnesium 1.6 L (1.7-2.4) mg/dl (1) Dementia Dementia behavioral or psychological symptom: unspecified whether behavioral, psychotic, or mood disturbance or anxiety Dementia severity: severe Dementia type: unspecified type Qualified Code(s): F03.C0 - Unspecified dementia, severe, without behavioral disturbance, psychotic disturbance, mood disturbance, and anxiety
--- NOTE | 2022-09-01 14:45 | Nephrology Progress Note ---
Date of Service September 01, 2022 Assessment & Plan Admission and Anticipated Discharge Date Admission Date: August 20, 2022 Subjective Assessment & Plan (1) Hyperkalemia with normal acid-base balance: Plan: Now has Low K from not eating. I stopped veltassa already. na slightly low as he is not really eating anything. has to be fed but that is also difficult. Stop Low K diet. He has reached terminal dementia and needs palliative med/Comfort care Subjective Non verbal and is now crawled up in position. Not eating anything. Review of Systems Review of Systems: Unobtainable due to cognitive status Physical Exam Constitutional: well developed, + thin, + physical limitations and + frail appearing; no acute distress ENMT: Ears: no external ear abnormality Nose: no external nose abnormality Mouth: + dry oral mucous membranes Neck: no nuchal rigidity Respiratory: normal respiratory effort Auscultation: + diminished lung sounds Cardiovascular: Rate/Rhythm: regular rate and regular rhythm Extremities: no edema Gastrointestinal (Abdomen): Inspection/Auscultation: normal bowel sounds Percussion/Palpation: abdomen soft; abdomen nontender Musculoskeletal: Extremities: + abnormal strength Skin: no rashes, warm and dry Trauma: + evidence of skin trauma (sacral wound not examined) Neurologic: contractures, no tremor, no tracking, nonverbal Results & Data Vital Signs (Past 12 Hours) Vital Signs Temp Pulse Pulse Pulse Resp BP BP 09/01/22 11:34 36.8 C 73 18 127/73 09/01/22 08:35 36.5 C 82 17 116/67 09/01/22 07:18 93 H 09/01/22 04:50 36.5 C 09/01/22 03:09 37.8 C H 81 16 106/50 L Pulse Ox O2 Del Method 09/01/22 11:34 97 Room Air 09/01/22 08:35 97 Room Air 09/01/22 07:18 09/01/22 04:50 09/01/22 03:09 97 Room Air
[2022-09-01] MEDS: TAMSULOSIN HCL 0.4 MG CAP PO SCH (20:15)
[2022-09-02 08:19] LABS: Calcium 9.1 mg/dl (8.6-10.3); Creatinine Clr Calc Pharmacy 110.4 ml/min; Est GFR (African American) 115.6 ml/min; Est GFR (Non-African American) 99.7 ml/min; Magnesium 1.8 mg/dl (1.7-2.4); Phosphorus 3.4 mg/dl (2.5-4.9); Potassium 3.4 mmol/L (3.5-5.1)
[2022-09-02] MEDS: MAGNESIUM OXIDE 400 MG TAB PO SCH (08:58)
[2022-09-02] MEDS: APIXABAN 2.5 MG TAB PO SCH ×2 (08:58→21:16)
[2022-09-02] MEDS: LACTOBACILLUS ACIDOPHILUS 1 GM PACK PO SCH ×2 (08:58→21:16)
[2022-09-02] MEDS: ACETAMINOPHEN 325 MG TAB PO PRN (09:06)
[2022-09-02] MEDS ORDERED: POTASSIUM CHLORIDE CRTAB 20 MEQ TABCR PO STA (09:07)
--- NOTE | 2022-09-02 09:07 | Nephrology Progress Note ---
Date of Service September 02, 2022 Assessment & Plan Admission and Anticipated Discharge Date Admission Date: August 20, 2022 Subjective Assessment & Plan (1) Hyperkalemia with normal acid-base balance: Plan: Now has Low K from not eating. I stopped veltassa already. na slightly low as he is not really eating anything. has to be fed but that is also difficult. Stop Low K diet. He has reached terminal dementia and needs palliative med/Comfort care Give 20 meq kcl if possible. Will sign off at this time--call if any new issues. Subjective Non verbal and is now crawled up in position. Not eating anything. Review of Systems Review of Systems: Unobtainable due to cognitive status Physical Exam Constitutional: well developed, + thin, + physical limitations and + frail appearing; no acute distress ENMT: Ears: no external ear abnormality Nose: no external nose abnormality Mouth: + dry oral mucous membranes Neck: no nuchal rigidity Respiratory: normal respiratory effort Auscultation: + diminished lung sounds Cardiovascular: Rate/Rhythm: regular rate and regular rhythm Extremities: no edema Gastrointestinal (Abdomen): Inspection/Auscultation: normal bowel sounds Percussion/Palpation: abdomen soft; abdomen nontender C Musculoskeletal: Extremities: + abnormal strength Skin: no rashes, warm and dry Trauma: + evidence of skin trauma (sacral wound not examined) Neurologic: contractures, no tremor, no tracking, nonverbal Results & Data Vital Signs (Past 12 Hours) Vital Signs Temp Pulse Pulse Resp BP BP Pulse Ox 09/02/22 08:23 37.1 C 92 H 16 102/61 96 09/02/22 06:57 94 H 09/02/22 03:37 36.5 C 95 H 18 137/64 99 09/02/22 01:10 92 H 09/02/22 00:30 37 C 98 H 18 119/70 98 09/02/22 00:28 O2 Del Method 09/02/22 08:23 Room Air 09/02/22 06:57 09/02/22 03:37 Room Air 09/02/22 01:10 09/02/22 00:30 Room Air 09/02/22 00:28 Room Air
--- NOTE | 2022-09-02 13:31 | Hospitalist Progress Note ---
Date of Service September 02, 2022 Assessment & Plan (1) Dementia: Plan 71-year-old male with PMH of chronic diastolic heart failure [EF 55%], CAD status post stent, CVA, GERD, chronic anemia [baseline hemoglobin of 12], BPH, mood disorder, past tobacco abuse, dementia [facility] because his daughter was unhappy about patient's status and care at the facility. He is being managed for the following while in hospital: Possible end-stage dementia Dehydration, poor appetite Hyperkalemia Concern for possible UTI Hypoactive delirium Metabolic encephalopathy Patient [facility] from [facility] due to concern for poor care he was receiving there. Patient with history of dementia, likely worsening. Patient hypernatremic at presentation. UA suggestive of possible UTI. Urine culture negative so far. Completed antibiotics Pt is a total feed/w/ appropriate appetite Hyperkalemia likely 2/2 heparin sc use vs unclear etiology Heparin was discontinued. Last dose was on 08/26/22 Currently on low dose eliquis for DVT ppx. Dr Diaz had discussed with nephro and also w/ Dr. Vásquez about the same Hyperkalemia has resolved. K is 3.4 today Low K diet has been stopped Metoprolol started for asymptomatic PACs on tele had been stopped Red Lead Burner recs noted Hypernatremia present on admission has resolved Speech recs noted Continue pureed diet with assistance Encourage p.o. intake. Replete hypomagnesemia Patient had elevated lactate. No other signs of infection at this time. Unclear etiology. Resolved with IVF UTI/Urinary retention/Hematuria: Uro derrick noted Currently on alvarado Continue alvarado on dc and f/u with Uro outapatient Decubitus ulcers at various stages POA: Stage II sacral ulcer Stage I right heel ulcer Stage II left heel ulcer Stage I other pressure-point ulcers including left elbow/bilateral ankle/right lateral st Wound care on board, appreciate care/recommendation. Low Air mattress. Other chronic medical conditions: Resume/continue with home meds as able. Chronic diastolic heart failure EF 55%patient on dry side Chronic anemia, hemoglobin at baseline Hyperglycemia, prediabetes, A1c of 5.8 Past tobacco abuse DVT prophylaxis: Continue apixaban while inpatient DNR/DNI Patient's daughter/POA Ms. Odette Christie [phone]. Disposition: PT/OT, CM to assist with DC planning. Will need Uro f/u on DC. I called daughter and spoke to her. We reviewed patient's declining medical problems in the past 6 months. I updated her on his current status. We discussed GOC. She is open to talking to clinical nurse specialist about resources. Palliative care consult placed I spent a total of 45 minutes coordinating, documenting and providing care for this patient excluding time spent in performance of separately billed services Admission and Anticipated Discharge Date Admission Date: August 20, 2022 Subjective Patient is seen and examined ROS is difficult due to cognitive status Physical Exam Constitutional: + well hydrated; no acute distress Eyes: PERRL, conjunctivae normal, anicteric sclerae ENMT: external ear and nose normal, oropharynx normal Respiratory: normal respiratory effort, lungs clear to auscultation Cardiovascular: Rate/Rhythm: regular rate and regular rhythm S1 S2 Gastrointestinal (Abdomen): normal bowel sounds, soft, nontender, no hepatosplenomegaly Musculoskeletal: Multiple decub ulcers in the feet Stage II sacral decub with dressing Neurologic: Alert, not oriented. Not following commands Genitourinary: Alvarado in situ Results & Data Results & Data Vital Signs (Past 12 Hours) Vital Signs Temp Pulse Pulse Resp BP BP Pulse Ox 09/02/22 11:18 37.0 C 93 H 17 118/63 97 09/02/22 10:32 09/02/22 08:23 37.1 C 92 H 16 102/61 96 09/02/22 06:57 94 H 09/02/22 03:37 36.5 C 95 H 18 137/64 99 O2 Del Method 09/02/22 11:18 Room Air 09/02/22 10:32 Room Air 09/02/22 08:23 Room Air 09/02/22 06:57 09/02/22 03:37 Room Air Laboratory Results Abnormal lab results 09/02/22 Range/Units 07:07 Sodium 135 L (136-145) mmol/L Potassium 3.4 L (3.5-5.1) mmol/L Glucose 110 H (70-99(Fasting)) mg/dl (1) Dementia Dementia behavioral or psychological symptom: unspecified whether behavioral, psychotic, or mood disturbance or anxiety Dementia severity: severe Dementia type: unspecified type Qualified Code(s): F03.C0 - Unspecified dementia, severe, without behavioral disturbance, psychotic disturbance, mood disturbance, and anxiety
[2022-09-02] MEDS: TAMSULOSIN HCL 0.4 MG CAP PO SCH (21:16)
[2022-09-03] MEDS: APIXABAN 2.5 MG TAB PO SCH ×2 (08:23→20:02)
[2022-09-03] MEDS: LACTOBACILLUS ACIDOPHILUS 1 GM PACK PO SCH ×2 (08:23→20:02)
[2022-09-03] MEDS: MAGNESIUM OXIDE 400 MG TAB PO SCH (08:23)
--- NOTE | 2022-09-03 09:22 | Palliative Care Consultation ---
Date of Consultation September 03, 2022 Assessment & Plan (1) Palliative care by specialist: Met with Radha/pt's guardian and dtr. Provided overview of Palliative Medicine, a subspecialty that provides specialized medical care for people living with a serious illness by offering a focus on quality of life. Palliative Medicine is often conflated with hospice: I advised patient/family that Palliative and hospice can be partners but we are not the same. It is important to understand the difference so that we may be informed, and not afraid. Palliative Medicine works to improve QOL through reduction of symptom burden/more control over their illness, for both the patient and family. Palliative medicine clinicians are board certified, specially-trained and another member of the patient's medical care team. We often provide an extra layer of support because our care is based on the needs of the patient, not the prognosis; as such, it's appropriate at any age/advancing stage of a serious illness and can be provided along with curative treatment. Palliative Medicine clinicians are also trained in advanced communication methodologies, to facilitate complex discussions about advanced illness planning, which are needed to help assure that the treatment choices match the patient's goals, aka delivering Goal Concordant care. Finally, we discussed that hospice is a visiting nurse service that focuses on care delivered at the very end of life for patients with terminal illness, with life expectancy less than 6 month. (2) Discussion about advance care planning held with family member: I had a 60 min tel call for ACP discussion with jihan Garcia dtr and guardian: We reviewed that all chronic/progressive disease has a declining trajectory over time where facets of patient self-identity and independence are lost. Every acute event leads to a further decline, resulting- many times, in a new baseline. Advised that the greatest priority is to determine what matters most to pt, then family and to develop a plan of care that is aligned with those priorities. Vascular dementia is generally caused by conditions that occur most often in older people, such as atherosclerosis (hardening of the arteries), heart disease, and stroke. The number of people older than 65 years is increasing. People are living longer with chronic diseases, such as heart disease and diabetes. Vascular dementia will usually get worse over time. This can happen in sudden steps, with periods in between where the symptoms do not change much, but it's difficult to predict when this will happen. Home-based help will usually be needed, and some people will eventually need care in a [place] [facility] [place]. We reviewed that dementia is not always recognized as a terminal illness or the actual cause of , often because there may also be other health problems, such as cancer or heart disease, which may be the main health concern. Dementia is, however, a terminal illness. Mr Christie was a lively, outgoing and loving father with a myriad of hobbies and passions. 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 He was affectionate with his children, engaged in their lives and supportive. He always helped everyone he could and was never afraid to take a chance on new people. He had an unfortunate few relationships but ultimately found his way. We reviewed the following facts about dementia: * Dementia is a terminal illness. Aggressive medical treatment for residents with advanced dementia is often inappropriate for medical reasons, has a low rate of success, and can have negative outcomes that hasten functional decline and . ([place] [employer] Ethics Committee and Clinical Practice and Models of Care Committee. J Am Geriatr Soc. 2014 Aug;62(8):1590-3 and Jacob SL, Peter JM, Mattson SC, Reji V. A national study of the location of for older persons with dementia. J Am Geriatr Soc 2005; 53(2):299-305 .) * Tube feeding in residents with advanced dementia does not increase survival. It does not prevent aspiration pneumonia, malnutrition or pressure ulcers. It does not reduce the risk of infections or improve functional status or comfort of the patient. (from: Gagandeep SINGH, Kina T Percutaneous endoscopic gastrostomy does not prolong survival in patients with dementia. Arch Piping Design Specialist Med 2003; 163(11):1062-6849 AND Payal DE, Sanjuana MARILIN, Hubert J, Teofilo S, Aleksandr RS. High short-term mortality in hospitalized patients with advanced dementia - Lack of benefit of tube feeding. Arch Piping Design Specialist Med 2001; 161(4):594- 599.) * Simple strategies involving hands-on care by well-trained staff such as massage, oral hygiene, changes in diet, and hand-feeding -- can prevent inf ection and manage feeding problems without resort to tube-feeding. * Tube feeding does not prevent aspiration pneumonia and might actually increase its incidence, and does not prevent the consequences of malnutrition * Hand feeding can be provided until the beginning of the dying process when all physiological processes shut down, note that cognitively intact cancer patients indicate that dying residents do not feel hunger and thirst. * Voluntary refusal of food and liquids is often initiated by hospice patients and does not result in discomfort * The majority of older Americans whose underlying cause of is attributable to dementia on their certificate in nursing homes. State-level factors, including the availability of hospital and [place] [facility] [place] beds and the age of decedents in the population, explain, in part, the wide acxcm-vr-[id number] variability in the proportion of dementia-related deaths occurring in the hospital. * Older adults with dementia frequently receive acute care in their last year of life although Hospice care was more common for home/CUSTODIAL residents. Overall time in hospice remains short due to the underutilization of the hospice benefit for terminal dementia (Rex MM, Isidro JM, Cb KM, Robinson DE, Umang PY. Dementia Care in the Last Year of Life: Experiences in a Community Practice and in Care Home Facilities. J Palliat Care. 2022;38(2):135-142. doi:10.1177/[id number]) * Home Hospice is a valuable option for terminal dementia who desire to have peaceful EOL at home. Home hospice care for advanced dementia can improve symptom management and caregiver satisfaction, while decreasing caregiver burden, preventing hospitalizations and discontinuing unnecessary medications (Jabari SA, Lina R, Glenda G, et al. Home hospice for older people with advanced dementia: a oversize load pilot escort project [published correction appears in Isr J Health Policy Res. 2019 Sep 20;8(1):56]. Isr J Health Policy Res. 2019;8(1):42. Published 2018July 26. doi:10.1186/n03200-270-1049-m) * We discussed the goals of hospice as a patient service and the goals of care; we discussed EOL trajectories and transitions lily the emotional impact of realizing mortality as a concrete reality from prior abstract considerations. Pt was reassured that no matter where they are along this trajectory, they are not alone - their medical team will remain by their side through their journey. Discussed the pros/cons of accepting help when especially weakened and distressed by pain-which would also help provide relief/decrease caregiver burden/strain. I provided education about the hospice benefit: an interdisciplinary program offered by nurses, nurses aides, social workers, chaplains and a medical recruiter for patients with a terminal condition and a life expectancy of less than 6 months. This is covered by Medicare at 100%/no out of pocket expense to patient and all meds/supplies needed by patient for the reason they are on hospice are paid for/covered by hospice. The goal is assure quality of life of the patient in their home setting (home, [place] [facility] [place], inpatient hospice setting) by providing symptoms management, psychosocial and spiritual support. However, they cannot offer 24 hours care and if the family is unable to provide that care, they will have to consider personal care with out of pocket cost vs. [place] [facility] placement. We discussed the goals of hospice as a patient service and the goals of care; we discussed EOL trajectories and transitions lily the emotional impact of realizing mortality as a concrete reality from prior abstract considerations. Pt was reassured that no matter where they are along this trajectory, they are not alone - their medical team will remain by their side through their journey. Discussed the pros/cons of accepting help when especially weakened and distressed by pain-which would also help provide relief/decrease caregiver burden/strain. (3) Dementia: The seven stages of vascular dementia 1. Normal cognitive behaviour (pre-dementia): During this first stage, damage to the brain is likely to have occurred. However, the individuals cognitive behaviour remains unchanged and they continue with daily tasks as they always have. 2. Very mild cognitive decline (pre-dementia): In stage two, the physical changes in an individuals brain become apparent through external symptoms. These are normally mild confusion or issues with problem-solving skills. Many individuals in this stage attribute their symptoms to ageing. The brains hippocampus, which deals with memory, naturally deteriorates with age. For this reason, few people seek a diagnosis at this early stage. 3. Mild cognitive decline (pre-dementia): Stage three is where the signs and symptoms of vascular dementia present themselves strongly enough for others to notice. The changes and progression witnessed during this time can be gradual, meaning it is often the longest stage out of the seven. Signs of confusion, slowed thinking and memory loss all become more apparent and begin to impact the individuals ability to function on a daily basis. It is normally during stage three that family and friends begin to seek support for their loved one. This could be in the form of homecare or the organisation of residential care, with the input of the individual to ensure a smooth transition. 4. Moderate cognitive decline: When an individual enters stage four, their symptoms become prominent and new symptoms begin to arise. It is during this stage that individuals are most likely to receive a diagnosis and require additional support. Safety becomes a concern, especially when it comes to tasks including cooking or taking medication. Family and friends may also notice changes in mood and social withdrawal, or even the denial of symptoms altogether. 5. Moderately severe cognitive decline: Stage five is often referred to as mid- stage dementia. It is during this time that the individual will be unlikely to continue with normal day-to-day activities, including bathing or dressing, and typically need assistance from a professional carer. Your loved one will require consistent support and supervision. Memory loss becomes more pronounced, as does the risk of wandering. Some individuals also experience sundown syndrome, where restlessness, agitation and confusion worsen as the daylight begins to fade. 6. Severe cognitive decline: At this stage, your loved one will likely require a higher level of support and care to support them in the daytime and nighttime tasks. These include eating, bathing and using the toilet. They may have difficulty with sleep, experience urinary incontinence or have more severe personality changes. There is also an increased risk of infections during this stage. You may need to consider residential care support or a live-in professional carer to ensure your loved ones needs are addressed at all times. 7. Very severe cognitive decline: The final stage of vascular dementia is the most severe. During this time, your loved one may have severe memory loss and struggle to remember loved ones. They will require plhnml-ijv-kdfgu support for essential daily tasks. Some individuals lose the ability to swallow and struggle with language skills or may be unable to walk. The focus during this stage shifts to preserving the quality of life of your loved one, ensuring their comfort and management of pain. Radha sees her Dad is late Stage 6 to early/mid 7. She knows he has a limited prognosis. She is extremely tearful relating her experiences with OSH and adds that no one every explained vascular dementia to her. She feels if she had been educated about it sooner, a lot of what patient was going through would have made more sense and better decisions/arrangements could have been made. At the time of his first acute decline, he had been hoping to move up with her, which adds to the overall sadness of this experience for her. Dementia behavioral or psychological symptom: unspecified whether behavioral, psychotic, or mood disturbance or anxiety Dementia severity: severe Dementia type: unspecified type Qualified Code(s): F03.C0 - Unspecified dementia, severe, without behavioral disturbance, psychotic disturbance, mood disturbance, and anxiety (4) Dementia with behavioral disturbance: (5) Stroke: (6) (HFpEF) heart failure with preserved ejection fraction: (7) CAD (coronary artery disease): Plan * Adv vasc dementia, this is insurable, irreversible and unfixable. It will not respond to traditional dementia meds. Mr. Christie is at late stages of his vasc dementia. * Radha would like hospice but wants to be sure her siblings are on board. They will meet as a family tonight to discuss and she will notify primary team/CM tomorrow with final decision. If they all agree for home hospice, it will be at her sister's house in [place]. She shares that her brother and recently lost her mother to dementia, who had been living at home/under their care and they also just had a new baby a few months ago. I have offered a Zoom based video meeting if needed with the whole family - Radha feels this is not needed but will keep it in mind. * Radha was extremely appreciative of the time spent in education and discussion today. She reiterates her highest avelina in [facility] providers and staff and is still very distressed by the perceived inequities of his care at OSH and SNF. * I have updated primary team, nursing and care mgt. Thank you for allowing us to participate in the ongoing care of this patient. Please don't hesitate to call or page with any additional concerns. Dr. Gabriela Riley DNP Director, Palliative Care History of Present Illness Reason for Consultation: Goals of care Attending Physician: Tod Buckley MD History of Present Illness Complex psychosocial dynamics. per admitting note of 08/20/22: "Poor care, not going back to [facility] as per daughter Primary Care Provider: Dr. Salazar of [facility] History obtained from patient family and records. Unable to obtain history from patient secondary to dementia. Medical history significant for chronic diastolic heart failure (EF 55%), CAD status post stent, CVA, GERD, chronic anemia (baseline hemoglobin of 12), BPH, mood disorder, past tobacco abuse. Last confinement [facility] April to June 2022 for dementia. Patient daughter/POA unsuccessful getting her [place] placed [place] [facility] [place] where she resides due to insurance issues. Patient discharged to [facility] 6 weeks ago for placement. Last week, patient noted to be weaker than usual. Patient started on IV ceftriaxone with note of UTI on outpatient UA. Patient not improving despite intervention at [place] [facility]. Patient daughter from [place] received a call from [place] provider that patient may be dying soon and hospice care may be warranted. Patient traveled from [place] to visit father a few days ago. She was unhappy about patient's state and care (bedsores, patient mentation). Patient daughter dissatisfied with telephone conversation with [place] [facility] providers today. She demanded that patient be discharged from [facility] facility and to be evaluated at the ER for any treatable medical conditions. She adamantly does not want her father to go back to [email or web address] Allergies Allergy/AdvReac Type Severity Reaction Status Date / Time No Known Allergies Allergy Verified 08/20/22 19:27 Home Medications Medication Instructions Recorded Confirmed Type acetaminophen 325 mg tablet 650 mg PO Q6H PRN TEMP >101F/PAIN 08/20/22 08/20/22 History (Tylenol) dextrose 5 % in water (D5W) 1,000 ml IV Q8H 08/20/22 08/20/22 History nitroglycerin 0.4 mg sublingual 0.4 mg sublingual .Q5MIN PRN Chest 08/20/22 08/20/22 History tablet (Nitrostat) Pain polyethylene glycol 3350 17 17 g PO Q24H PRN Constipation 08/20/22 08/20/22 History gram/dose oral powder (Miralax) Patient History Medical History (Updated 09/03/22 @ 10:59 by Gabirela Riley DNP) (HFpEF) heart failure with preserved ejection fraction CAD (coronary artery disease) Dementia Dementia with behavioral disturbance Discussion about advance care planning held with family member Palliative care by specialist Prostatic hypertrophy Stroke Surgical History H/O cystoscopy Family History Other Heart disease Social History Smoking Status: Current every day smoker Tobacco Type: Cigarettes Second Hand Exposure: No; Do You Dip or Chew Tobacco: No; Hx Alcohol Use: No Hx Substance Use: No Preferred Language: Monegasque Communication Ability: Unable [employer] Operations [employer] Training Required: No Beliefs That Will Affect Care: None Current Living Situation: [facility] Feels Safe at Home: Declines to Answer Assistive Devices: None Review of Systems Review of Systems: Unobtainable due to cognitive status Physical Exam Physical Exam: Adv dementia non verbal contractures and ulcer dressing pale chronically ill, frail Results & Data Vital Signs (Past 12 Hours) Vital Signs Temp Pulse Pulse Resp BP Pulse Ox O2 Del Method 09/03/22 07:07 36.7 C 100 H 18 144/66 H 97 Room Air 09/03/22 07:00 101 H 09/03/22 02:16 36.6 C 102 H 18 138/73 95 Room Air 09/02/22 23:20 37.2 C 93 H 18 120/66 97 Room Air 09/02/22 22:56 98 H 09/02/22 21:53 Room Air Laboratory Results data reviewed Diagnostic Findings data reviewed PG Care Time/CCT Total # of Minutes Spent Total Time Spent: 90 Total Time Spent with Patient: Total time spent is greater than 50% in coordination of care (as documented) at patient's floor/unit and/or counseling patient: Advanced Care Planning 44895 Advanced Care Planning 30 Min 33231 Advanced Care Planning Additional 30 [place] [address] IN/OBS CONSULT LVL 5,80M Patient Type New History Comprehensive Exam Detailed Medical Decision Making High Complexity Diagnoses Palliative care by specialist Z51.5 Discussion about advance care planning held with family member Z71.0 Dementia F03.C0 Dementia behavioral or psychological symptom: unspecified whether behavioral, psychotic, or mood disturbance or anxiety Dementia severity: severe Dementia type: unspecified type Dementia with behavioral disturbance F03.918 Stroke I63.9 (HFpEF) heart failure with preserved ejection fraction I50.30 CAD (coronary artery disease) I25.10 Additional Codes Advanced Care Planning - 62793 Advanced Care Planning 30 Min: 30460 Advanced Care Planning 30 Min ([id number]) Advanced Care Planning - 51013 Advanced Care Planning Additional 30 Min: 82777 Advanced Care Planning Additional 30 Min ([id number])
[2022-09-03] MEDS: bisacodyL 10 MG SUPP PR PRN (09:47)
--- NOTE | 2022-09-03 11:35 | Hospitalist Progress Note ---
Date of Service September 03, 2022 Assessment & Plan (1) Dementia: Plan 71-year-old male with PMH of chronic diastolic heart failure [EF 55%], CAD status post stent, CVA, GERD, chronic anemia [baseline hemoglobin of 12], BPH, mood disorder, past tobacco abuse, dementia [facility] because his daughter was unhappy about patient's status and care at the facility. He is being managed for the following while in hospital: Advanced vascular dementia Dehydration, poor appetite Hyperkalemia Hypoactive delirium [facility] due to concern for poor care he was receiving there. Patient with history of dementia which has been worsening. Hypernatremic at presentation which is resolved. Hyperkalemia likely 2/2 heparin sc use and has resolved with discontinuation of heparin- last dose was 08/26/22 Completed antibiotics for possible UTI given abnormal UA Plan Seen by STATISTICIAN APPLIED- continue pureed diet with assistance Patient is a total feed/w/ appropriate appetite Encourage p.o. intake. Seen by palliative today who discussed with family- tentative plan for hospice at her sister's home in [place] but awaiting final family discussion tonight. They will call us tomorrow with final decision. Urinary retention- seen by urology. Continue alvarado at discharge and OP uro follow up. Continue flomax Decubitus ulcers at various stages POA: Stage II sacral ulcer Stage I right heel ulcer Stage II left heel ulcer Stage I other pressure-point ulcers including left elbow/bilateral ankle/right lateral st - Continue wound care recommendations. Low Air mattress. Sinus tachy/PACs- resume low dose toprol. DVT prophylaxis: low dose eliquis as per discussion by prior hospitalist DNR/DNI Patient's daughter/POA Ms. Odette Christie [phone]. Disposition: PT/OT, CM to assist with DC planning. Will need Uro f/u on DC. Admission and Anticipated Discharge Date Admission Date: August 20, 2022 Subjective Patient was seen and examined at bedside. Lying comfortably in bed. Awake, karin rt, answering simple questions intermittently. No fever. No shortness of breath. No nausea or vomiting. Discussed with bedside RN. Review of Systems Review of Systems: Unobtainable due to cognitive status Physical Exam Physical Exam: General: Lying comfortably in bed, not in distress, on room air Chest: Clear breath sounds bilaterally, no wheezes or crackles CVS: tachycardia, normal heart sounds, no murmur Abdomen: Soft, non tender, not distended, normal bowel sounds Neuro: Awake, alert, not oriented, answering simple questions intermittently. Does not follow commands Extremities: No cyanosis, clubbing or edema Psych: Calm, not agitated Skin: Multiple decubitus ulcers in feet, stage II sacral decubitus on dressing Results & Data Results & Data Vital Signs (Past 12 Hours) Vital Signs Temp Pulse Pulse Resp BP Pulse Ox O2 Del Method 09/03/22 07:07 36.7 C 100 H 18 144/66 H 97 Room Air 09/03/22 07:00 101 H 09/03/22 02:16 36.6 C 102 H 18 138/73 95 Room Air Medications Administered Current Inpatient Medications Acetaminophen (Acetaminophen 325 Mg Tab) 650 mg PO Q6H PRN PRN Reason: TEMP >101F/PAIN Stop: 09/20/22 01:06 Last Admin: 09/02/22 09:06 Dose: 650 mg Apixaban (Apixaban 2.5 Mg Tab) 2.5 mg PO BID [facility] Stop: 09/25/22 20:59 Last Admin: 09/03/22 08:23 Dose: 2.5 mg Bisacodyl (Bisacodyl 10 Mg Supp) 10 mg LA DAILY PRN PRN Reason: Constipation Stop: 09/29/22 09:47 Last Admin: 09/03/22 09:47 Dose: 10 mg Lactobacillus Acidophilus (Lactobacillus Acidophilus 1 Gm Pack) 1 gm PO BID [facility] Stop: 09/23/22 20:59 Last Admin: 09/03/22 08:23 Dose: 1 gm Magnesium Oxide (Magnesium Oxide 400 Mg Tab) 400 mg PO QAM [facility] Stop: 09/28/22 13:29 Last Admin: 09/03/22 08:23 Dose: 400 mg Metoprolol Succinate (Metoprolol Succ 25mg Ext Rel Tab) 12.5 mg PO QAM [facility] Stop: 10/03/22 13:14 Tamsulosin HCl (Tamsulosin Hcl 0.4 Mg Cap) 0.4 mg PO HS [facility] Stop: 09/22/22 20:59 Last Admin: 09/02/22 21:16 Dose: 0.4 mg (1) Dementia Dementia behavioral or psychological symptom: unspecified whether behavioral, psychotic, or mood disturbance or anxiety Dementia severity: severe Dementia type: unspecified type Qualified Code(s): F03.C0 - Unspecified dementia, severe, without behavioral disturbance, psychotic disturbance, mood disturbance, and anxiety
[2022-09-03] MEDS: METOPROLOL SUCC 25MG EXT REL TAB PO SCH (14:19)
[2022-09-03] MEDS: TAMSULOSIN HCL 0.4 MG CAP PO SCH (20:03)
[2022-09-04 08:29] LABS: Hematocrit (blood only) 32.4 % (42.0-52.0); Hemoglobin 10.2 g/dl (14.0-18.0); Mean Corpuscular Hemoglobin 28.3 pg (25.0-34.0); Mean Corpuscular Hgb Conc 31.5 g/dL (32.0-36.0); Mean Platelet Volume 8.7 fL (9.4-12.4); Platelet Count 274 K/uL (130-400); RDW Standard Deviation 49.3 fL (36.4-46.3)
[2022-09-04 08:41] LABS: BUN Creatinine Ratio 24.2 (10-20); Calcium 9.2 mg/dl (8.6-10.3); Creatinine Clr Calc Pharmacy 99.7 ml/min; Est GFR (African American) 111.2 ml/min; Est GFR (Non-African American) 95.9 ml/min; Magnesium 1.7 mg/dl (1.7-2.4); Phosphorus 3.3 mg/dl (2.5-4.9)
[2022-09-04] MEDS: METOPROLOL SUCC 25MG EXT REL TAB PO SCH (08:46)
[2022-09-04] MEDS: APIXABAN 2.5 MG TAB PO SCH ×2 (08:47→21:28)
[2022-09-04] MEDS: MAGNESIUM OXIDE 400 MG TAB PO SCH (08:47)
[2022-09-04] MEDS: LACTOBACILLUS ACIDOPHILUS 1 GM PACK PO SCH ×2 (08:47→21:28)
--- NOTE | 2022-09-04 13:42 | Hospitalist Progress Note ---
Date of Service September 04, 2022 Assessment & Plan (1) Dementia: Plan 71-year-old male with PMH of chronic diastolic heart failure [EF 55%], CAD status post stent, CVA, GERD, chronic anemia [baseline hemoglobin of 12], BPH, mood disorder, past tobacco abuse, dementia [facility] by his daughter because his daughter was unhappy about patient's status and care at the facility. He is being managed for the following while in hospital: Advanced vascular dementia Dehydration, poor appetite Hyperkalemia Hypoactive delirium Patient [facility] due to concern for poor care he was receiving there. Patient with history of dementia which has been worsening. Hypernatremic at presentation which is resolved. Hyperkalemia likely 2/2 heparin sc use and has resolved with discontinuation of heparin- last dose was 08/26/22 Completed antibiotics for possible UTI given abnormal UA Plan Seen by RETAIL EVENT ASSISTANT- continue pureed diet with assistance Patient is a total feed/w/ appropriate appetite Encourage p.o. intake. Seen by palliative and discussed with family. Family has decided for home hospice at her [facility]. Referral made to hospice agencies- awaiting acceptance and then supplies delivery afterward. Urinary retention- seen by urology. Continue alvarado at discharge and OP uro follow up. Continue flomax Decubitus ulcers at various stages POA: Stage II sacral ulcer Stage I right heel ulcer Stage II left heel ulcer Stage I other pressure-point ulcers including left elbow/bilateral ankle/right lateral st - Continue wound care recommendations. Low Air mattress. DVT prophylaxis: low dose eliquis as per discussion by prior hospitalist DNR/DNI Patient's daughter/POA Ms. Odette Christie [phone]. Disposition: Plan for home hospice- awaiting acceptance by hospice agency. Admission and Anticipated Discharge Date Admission Date: August 20, 2022 Subjective Patient was seen and examined at bedside. Lying comfortably in bed. Awake, alert, answers simple questions intermittently. No fever, shortness of breath, nausea or vomiting. Physical Exam Physical Exam: General: Lying comfortably in bed, not in distress, on room air Chest: Clear breath sounds bilaterally, no wheezes or crackles CVS: tachycardia, normal heart sounds, no murmur Abdomen: Soft, non tender, not distended, normal bowel sounds Neuro: Awake, alert, not oriented, answering simple questions intermittently. Does not follow commands Extremities: No cyanosis, clubbing or edema Psych: Calm, not agitated Skin: Multiple decubitus ulcers in feet, stage II sacral decubitus on dressing Results & Data Results & Data Vital Signs (Past 12 Hours) Vital Signs Temp Pulse Pulse Resp BP BP Pulse Ox 09/04/22 12:04 36.4 C L 101 H 18 126/63 97 09/04/22 08:50 37.7 C H 91 H 17 118/69 96 09/04/22 03:02 36.8 C 90 18 124/68 97 O2 Del Method 09/04/22 12:04 Room Air 09/04/22 08:50 Room Air 09/04/22 03:02 Room Air Laboratory Results Short CBC 09/04/22 Range/Units 08:03 WBC 9.60 (4.8-10.8) K/ul Hgb 10.2 L (14.0-18.0) g/dl Hct 32.4 L (42.0-52.0) % Plt Count 274 (130-400) K/uL BMP 09/04/22 08:03 Sodium 138 Potassium 4.0 Chloride 105 Carbon Dioxide 28 BUN 16 Creatinine 0.66 Glucose 103 H Calcium 9.2 Medications Administered Current Inpatient Medications Acetaminophen (Acetaminophen 325 Mg Tab) 650 mg PO Q6H PRN PRN Reason: TEMP >101F/PAIN Stop: 09/20/22 01:06 Last Admin: 09/02/22 09:06 Dose: 650 mg Apixaban (Apixaban 2.5 Mg Tab) 2.5 mg PO BID [facility] Stop: 09/25/22 20:59 Last Admin: 09/04/22 08:47 Dose: 2.5 mg Bisacodyl (Bisacodyl 10 Mg Supp) [address] DAILY PRN PRN Reason: Constipation Stop: 09/29/22 09:47 Last Admin: 09/03/22 09:47 Dose: 10 mg Lactobacillus Acidophilus (Lactobacillus Acidophilus 1 Gm Pack) 1 gm PO BID [facility] Stop: 09/23/22 20:59 Last Admin: 09/04/22 08:47 Dose: 1 gm Magnesium Oxide (Magnesium Oxide 400 Mg Tab) 400 mg PO QAM [facility] Stop: 09/28/22 13:29 Last Admin: 09/04/22 08:47 Dose: 400 mg Metoprolol Succinate (Metoprolol Succ 25mg Ext Rel Tab) 12.5 mg PO QAM [facility] Stop: 10/03/22 13:14 Last Admin: 09/04/22 08:46 Dose: Not Given Tamsulosin HCl (Tamsulosin Hcl 0.4 Mg Cap) 0.4 mg PO HS [facility] Stop: 09/22/22 20:59 Last Admin: 09/03/22 20:03 Dose: 0.4 mg (1) Dementia Dementia behavioral or psychological symptom: unspecified whether behavioral, psychotic, or mood disturbance or anxiety Dementia severity: severe Dementia type: unspecified type Qualified Code(s): F03.C0 - Unspecified dementia, severe, without behavioral disturbance, psychotic disturbance, mood disturbance, and anxiety
--- NOTE | 2022-09-04 14:16 | Palliative Care Progress Note ---
Date of Service September 04, 2022 Assessment & Plan (1) Palliative care by specialist: (2) Dementia with behavioral disturbance: (3) (HFpEF) heart failure with preserved ejection fraction: (4) Stroke: (5) CAD (coronary artery disease): Plan See family meeting from 09/03 Awaiting family's final decision re hospice at home versus SNF No acute issues today Palliative med was asked to assist with GOC/ACP - this was done and reflected in notes to date. Patient currently has no acute IP pall med needs, therefore I will sign off and remain available for re engagement this admission if needed. Please don't hesitate to call or page me. Thank you for allowing us to participate in the ongoing care of this patient. Please don't hesitate to call or page with any additional concerns. Dr. Gabriela Riley DNP Director, Palliative Care Admission and Anticipated Discharge Date Admission Date: August 20, 2022 Subjective no acute distress family to decide re home hospice dc remains confused, adv dementia, non verbal and non interactive with me Review of Systems Review of Systems: Unobtainable due to cognitive status Physical Exam Physical Exam: Adv dementia non verbal contractures and ulcer dressing pale chronically ill, frail Results & Data Vital Signs (Past 12 Hours) Vital Signs Temp Pulse Pulse Resp BP BP Pulse Ox 09/04/22 12:04 36.4 C L 101 H 18 126/63 97 09/04/22 08:50 37.7 C H 91 H 17 118/69 96 09/04/22 03:02 36.8 C 90 18 124/68 97 O2 Del Method 09/04/22 12:04 Room Air 09/04/22 08:50 Room Air 09/04/22 03:02 Room Air Laboratory Results data reviewed Diagnostic Findings data reviewed PG Care Time/CCT Total # of Minutes Spent Total Time Spent: 44 Total Time Spent with Patient: Total time spent is greater than 50% in coordination of care (as documented) at patient's floor/unit and/or counseling patient: Coding [place] [address] SUB INP/OBS CARE 2/35MIN Patient Type Established History Detailed Exam Expanded Problem Focused Medical Decision Making Moderate Complexity Diagnoses Palliative care by specialist Z51.5 Dementia with behavioral disturbance F03.918 (HFpEF) heart failure with preserved ejection fraction I50.30 Stroke I63.9 CAD (coronary artery disease) I25.10
[2022-09-04] MEDS: METOPROLOL TARTRATE 25 MG TAB PO SCH (21:27)
[2022-09-04] MEDS: TAMSULOSIN HCL 0.4 MG CAP PO SCH (21:29)
[2022-09-05] MEDS: LACTOBACILLUS ACIDOPHILUS 1 GM PACK PO SCH (09:52)
[2022-09-05] MEDS: MAGNESIUM OXIDE 400 MG TAB PO SCH (09:52)
[2022-09-05] MEDS: APIXABAN 2.5 MG TAB PO SCH ×2 (09:52→21:09)
[2022-09-05] MEDS: METOPROLOL TARTRATE 25 MG TAB PO SCH ×2 (09:53→21:10)
[2022-09-05] MEDS: ACETAMINOPHEN 325 MG TAB PO PRN (10:14)
--- NOTE | 2022-09-05 11:39 | Hospitalist Progress Note ---
Date of Service September 05, 2022 Assessment & Plan (1) Dementia: Plan 71-year-old male with PMH of chronic diastolic heart failure [EF 55%], CAD status post stent, CVA, GERD, chronic anemia [baseline hemoglobin of 12], BPH, mood disorder, past tobacco abuse, dementia [facility] by his daughter because his daughter was unhappy about patient's status and care at the facility. He is being managed for the following while in hospital: Advanced vascular dementia Dehydration, poor appetite Hyperkalemia Hypoactive delirium Patient brought from [facility] due to concern for poor care he was receiving there. Patient with history of dementia which has been worsening. Hypernatremic at presentation which is resolved. Hyperkalemia likely 2/2 heparin sc use and has resolved with discontinuation of heparin- last dose was 08/26/22 Completed antibiotics for possible UTI given abnormal UA Plan Seen by CERTIFIED NUTRITIONIST- continue pureed diet with assistance Patient is a total feed/w/ appropriate appetite Encourage p.o. intake. Seen by palliative and discussed with family. Plan for home hospice at her daughter's home. Home arrangements to be made. Expected discharge Thursday per CM. Urinary retention- seen by urology. Continue alvarado at discharge and OP uro follow up. Continue flomax Decubitus ulcers at various stages POA: Stage II sacral ulcer Stage I right heel ulcer Stage II left heel ulcer Stage I other pressure-point ulcers including left elbow/bilateral ankle/right lateral st - Continue wound care recommendations. Low Air mattress. Sinus tachycardia/PACs-improved with low-dose Lopressor. Continue. DVT prophylaxis: low dose eliquis as per discussion by prior hospitalist DNR/DNI Patient's daughter/POA Ms. Odette Christie [phone]. Disposition: Plan for home hospice on Thursday awaiting home arrangement. Discontinue telemetry Admission and Anticipated Discharge Date Admission Date: August 20, 2022 Subjective Patient was seen and examined at bedside. Awake, alert, answering simple questions intermittently. No fever, shortness of breath, nausea or vomiting. Review of Systems Review of Systems: Unobtainable due to cognitive status Physical Exam Physical Exam: General: Lying comfortably in bed, not in distress, on room air Chest: Clear breath sounds bilaterally, no wheezes or crackles CVS: tachycardia, normal heart sounds, no murmur Abdomen: Soft, non tender, not distended, normal bowel sounds Neuro: Awake, alert, not oriented, answering simple questions intermittently. Does not follow commands Extremities: No cyanosis, clubbing or edema Psych: Calm, not agitated Skin: Multiple decubitus ulcers in feet, stage II sacral decubitus on dressing Results & Data Results & Data Vital Signs (Past 12 Hours) Vital Signs Temp Pulse Pulse Pulse Resp BP BP 09/05/22 08:03 36.7 C 90 20 112/60 09/05/22 04:07 36.9 C 77 18 132/86 09/05/22 00:00 92 H Pulse Ox O2 Del Method 09/05/22 08:03 97 Room Air 09/05/22 04:07 97 Room Air 09/05/22 00:00 Medications Administered Current Inpatient Medications Acetaminophen (Acetaminophen 325 Mg Tab) 650 mg PO Q6H PRN PRN Reason: TEMP >101F/PAIN Stop: 09/20/22 01:06 Last Admin: 09/05/22 10:14 Dose: 650 mg Apixaban (Apixaban 2.5 Mg Tab) 2.5 mg PO BID [facility] Stop: 09/25/22 20:59 Last Admin: 09/05/22 09:52 Dose: 2.5 mg Bisacodyl (Bisacodyl 10 Mg Supp) 10 mg [place] DAILY PRN PRN Reason: Constipation Stop: 09/29/22 09:47 Last Admin: 09/03/22 09:47 Dose: 10 mg Magnesium Oxide (Magnesium Oxide 400 Mg Tab) 400 mg PO QAM [facility] Stop: 09/28/22 13:29 Last Admin: 09/05/22 09:52 Dose: 400 mg Metoprolol Tartrate (Metoprolol Tartrate 25 Mg Tab) 12.5 mg PO BID [facility] Stop: 10/04/22 20:59 Last Admin: 09/05/22 09:53 Dose: 12.5 mg Tamsulosin HCl (Tamsulosin Hcl 0.4 Mg Cap) 0.4 mg PO HS [facility] Stop: 09/22/22 20:59 Last Admin: 09/04/22 21:29 Dose: 0.4 mg (1) Dementia Dementia behavioral or psychological symptom: unspecified whether behavioral, psychotic, or mood disturbance or anxiety Dementia severity: severe Dementia type: unspecified type Qualified Code(s): F03.C0 - Unspecified dementia, severe, without behavioral disturbance, psychotic disturbance, mood disturbance, and anxiety
[2022-09-05] MEDS: TAMSULOSIN HCL 0.4 MG CAP PO SCH (21:10)
[2022-09-06] MEDS: METOPROLOL TARTRATE 25 MG TAB PO SCH ×2 (10:14→20:25)
[2022-09-06] MEDS: MAGNESIUM OXIDE 400 MG TAB PO SCH (10:14)
[2022-09-06] MEDS: APIXABAN 2.5 MG TAB PO SCH ×2 (10:14→20:25)
--- NOTE | 2022-09-06 12:52 | Hospitalist Progress Note ---
Date of Service September 06, 2022 Assessment & Plan (1) Dementia: Plan 71-year-old male with PMH of chronic diastolic heart failure [EF 55%], CAD status post stent, CVA, GERD, chronic anemia [baseline hemoglobin of 12], BPH, mood disorder, past tobacco abuse, dementia [facility] by his daughter because his daughter was unhappy about patient's status and care at the facility. He is being managed for the following while in hospital: Advanced vascular dementia Dehydration, poor appetite Hyperkalemia Hypoactive delirium Patient [facility] from [facility] due to concern for poor care he was receiving there. Patient with history of dementia which has been worsening. Hypernatremic at presentation which is resolved. Hyperkalemia likely 2/2 heparin sc use and has resolved with discontinuation of heparin- last dose was 08/26/22 Completed antibiotics for possible UTI given abnormal UA Plan Seen by EQUIPMENT OPERAT0R- continue pureed diet with assistance Patient is a total feed/w/ appropriate appetite Encourage p.o. intake. Seen by palliative and discussed with family. Plan for home hospice at her daughter's home. Home arrangements to be made. Expected discharge Thursday per CM. Urinary retention- seen by urology. Continue alvarado at discharge and OP uro follow up. Continue flomax Decubitus ulcers at various stages POA: Stage II sacral ulcer Stage I right heel ulcer Stage II left heel ulcer Stage I other pressure-point ulcers including left elbow/bilateral ankle/right lateral st - Continue wound care recommendations. Low Air mattress. Sinus tachycardia/PACs-improved with low-dose Lopressor. Continue. DVT prophylaxis: low dose eliquis as per discussion by prior hospitalist DNR/DNI Patient's daughter/POA Ms. Odette Christie [phone]. Disposition: Plan for home hospice on Thursday awaiting home arrangement. Admission and Anticipated Discharge Date Admission Date: August 20, 2022 Subjective Patient was seen and examined at bedside. Seems stable, and at baseline. no fever, shortness of breath, nausea or vomiting. Review of Systems Review of Systems: Unobtainable due to cognitive status Physical Exam Physical Exam: General: Lying comfortably in bed, not in distress, on room air Chest: Clear breath sounds bilaterally, no wheezes or crackles CVS: tachycardia, normal heart sounds, no murmur Abdomen: Soft, non tender, not distended, normal bowel sounds Neuro: Awake, alert, not oriented, answering simple questions intermittently. Does not follow commands Extremities: No cyanosis, clubbing or edema Psych: Calm, not agitated Skin: Multiple decubitus ulcers in feet, stage II sacral decubitus on dressing Results & Data Results & Data Vital Signs (Past 12 Hours) Vital Signs Temp Pulse Resp BP Pulse Ox O2 Del Method 09/06/22 11:17 Room Air 09/06/22 07:58 36.7 C 91 H 20 119/70 97 Room Air Medications Administered Current Inpatient Medications Acetaminophen (Acetaminophen 325 Mg Tab) 650 mg PO Q6H PRN PRN Reason: TEMP >101F/PAIN Stop: 09/20/22 01:06 Last Admin: 09/05/22 10:14 Dose: 650 mg Apixaban (Apixaban 2.5 Mg Tab) 2.5 mg PO BID [facility] Stop: 09/25/22 20:59 Last Admin: 09/06/22 10:14 Dose: 2.5 mg Bisacodyl (Bisacodyl 10 Mg Supp) 10 mg [place] DAILY PRN PRN Reason: Constipation Stop: 09/29/22 09:47 Last Admin: 09/03/22 09:47 Dose: 10 mg Magnesium Oxide (Magnesium Oxide 400 Mg Tab) 400 mg PO QAM [facility] Stop: 09/28/22 13:29 Last Admin: 09/06/22 10:14 Dose: 400 mg Metoprolol Tartrate (Metoprolol Tartrate 25 Mg Tab) 12.5 mg PO BID [facility] Stop: 10/04/22 20:59 Last Admin: 09/06/22 10:14 Dose: 12.5 mg Tamsulosin HCl (Tamsulosin Hcl 0.4 Mg Cap) 0.4 mg PO HS [facility] Stop: 09/22/22 20:59 Last Admin: 09/05/22 21:10 Dose: 0.4 mg (1) Dementia Dementia behavioral or psychological symptom: unspecified whether behavioral, psychotic, or mood disturbance or anxiety Dementia severity: severe Dementia type: unspecified type Qualified Code(s): F03.C0 - Unspecified dementia, severe, without behavioral disturbance, psychotic disturbance, mood disturbance, and anxiety
[2022-09-06] MEDS: TAMSULOSIN HCL 0.4 MG CAP PO SCH (20:25)
[2022-09-07 07:39] LABS: Hematocrit (blood only) 29.5 % (42.0-52.0); Hemoglobin 9.5 g/dl (14.0-18.0); Mean Corpuscular Hgb Conc 32.2 g/dL (32.0-36.0); Mean Corpuscular Volume 89.9 fL (80.0-100.0); Mean Platelet Volume 8.7 fL (9.4-12.4); Platelet Count 244 K/uL (130-400); RDW Coefficient of Variation 14.9 % (11.5-14.5); RDW Standard Deviation 48.7 fL (36.4-46.3); Red Blood Count 3.28 M/uL (4.70-6.10); White Blood Count 7.42 K/ul (4.8-10.8)
[2022-09-07] MEDS: METOPROLOL TARTRATE 25 MG TAB PO SCH ×2 (08:06→20:25)
[2022-09-07] MEDS: APIXABAN 2.5 MG TAB PO SCH ×2 (08:06→20:25)
[2022-09-07] MEDS: MAGNESIUM OXIDE 400 MG TAB PO SCH (08:06)
[2022-09-07 08:27] LABS: Calcium 9.2 mg/dl (8.6-10.3); Magnesium 1.6 mg/dl (1.7-2.4); Potassium 3.3 mmol/L (3.5-5.1)
[2022-09-07 08:32] LABS: BUN Creatinine Ratio 34.4 (10-20); Creatinine Clr Calc Pharmacy 108.2 ml/min; Est GFR (African American) 114.8 ml/min; Est GFR (Non-African American) 99.1 ml/min
--- NOTE | 2022-09-07 12:15 | Hospitalist Progress Note ---
Date of Service September 07, 2022 Assessment & Plan (1) Dementia: Plan 71-year-old male with PMH of chronic diastolic heart failure [EF 55%], CAD status post stent, CVA, GERD, chronic anemia [baseline hemoglobin of 12], BPH, mood disorder, past tobacco abuse, dementia was brought from the [facility] by his daughter because his daughter was unhappy about patient's status and care at the facility. He is being managed for the following while in hospital: Advanced vascular dementia Dehydration, poor appetite Hypoactive delirium Patient brought from [facility] due to concern for poor care he was receiving there. Patient with history of dementia which has been worsening. Hypernatremic at presentation which is resolved. Hyperkalemia likely 2/2 heparin sc use and has resolved with discontinuation of heparin- last dose was 08/26/22 Completed antibiotics for possible UTI given abnormal UA Plan Seen by PULMONARY DISEASE SPECIALIST- continue pureed diet with assistance Patient is a total feed/w/ appropriate appetite Encourage p.o. intake. Seen by palliative and discussed with family. Plan for home hospice at her daughter's home. Home arrangements to be made. Expected discharge Thursday per CM. Urinary retention- seen by urology. Continue alvarado at discharge and OP uro follow up. Continue flomax Decubitus ulcers at various stages POA: Stage II sacral ulcer Stage I right heel ulcer Stage II left heel ulcer Stage I other pressure-point ulcers including left elbow/bilateral ankle/right lateral st - Continue wound care recommendations. Low Air mattress. Sinus tachycardia/PACs-improved with low-dose Lopressor. Continue. Hypokalemia-repleted Hypomagnesemia-repleted DVT prophylaxis: low dose eliquis as per discussion by prior hospitalist DNR/DNI Patient's daughter/POA Ms. Odette Christie [phone]. Disposition: Plan for home hospice on Thursday awaiting home arrangement. Admission and Anticipated Discharge Date Admission Date: August 20, 2022 Subjective Patient was seen and examined at bedside. Patient is awake, alert, mute today. Stable compared to yesterday. No new issues. No fever, shortness of breath or vomiting noted. Review of Systems Review of Systems: All systems reviewed & are unremarkable except as noted in Subjective Physical Exam Physical Exam: General: Lying comfortably in bed, not in distress, on room air Chest: Clear breath sounds bilaterally, no wheezes or crackles CVS: Regular, normal heart sounds, no murmur Abdomen: Soft, non tender, not distended, normal bowel sounds Neuro: Awake, alert, mute. Does not follow commands Extremities: No cyanosis, clubbing or edema Psych: Calm, not agitated Skin: Multiple decubitus ulcers in feet, stage II sacral decubitus on dressing Results & Data Results & Data Vital Signs (Past 12 Hours) Vital Signs Temp Pulse Resp BP Pulse Ox O2 Del Method 09/07/22 07:58 37.1 C 82 20 129/54 L 96 Room Air Laboratory Results Short CBC 09/07/22 Range/Units 07:15 WBC 7.42 (4.8-10.8) K/ul Hgb 9.5 L (14.0-18.0) g/dl Hct 29.5 L (42.0-52.0) % Plt Count 244 (130-400) K/uL BMP 09/07/22 07:15 Sodium 136 Potassium 3.3 L Chloride 105 Carbon Dioxide 26 BUN 21 Creatinine 0.61 Glucose 111 H Calcium 9.2 (1) Dementia Dementia behavioral or psychological symptom: unspecified whether behavioral, psychotic, or mood disturbance or anxiety Dementia severity: severe Dementia type: unspecified type Qualified Code(s): F03.C0 - Unspecified dementia, severe, without behavioral disturbance, psychotic disturbance, mood disturbance, and anxiety
[2022-09-07] MEDS ORDERED: POTASSIUM CHLORIDE 20 MEQ/15 ML UDC PO ONE (12:30)
[2022-09-07] MEDS ORDERED: MAGNESIUM CHLORIDE W/CALCIUM 64MG DELAYED REL TAB PO ONE (12:30)
[2022-09-07] MEDS: TAMSULOSIN HCL 0.4 MG CAP PO SCH (20:25)
[2022-09-08] MEDS: APIXABAN 2.5 MG TAB PO SCH ×2 (08:34→21:18)
[2022-09-08] MEDS: METOPROLOL TARTRATE 25 MG TAB PO SCH ×2 (08:34→21:18)
--- NOTE | 2022-09-08 09:38 | Hospitalist Progress Note ---
Date of Service September 08, 2022 Assessment & Plan (1) Dementia: Plan 71-year-old male with PMH of chronic diastolic heart failure [EF 55%], CAD status post stent, CVA, GERD, chronic anemia [baseline hemoglobin of 12], BPH, mood disorder, past tobacco abuse, dementia was [facility] the [facility] by his daughter because his daughter was unhappy about patient's status and care at the facility. He is being managed for the following while in hospital: Advanced vascular dementia Dehydration, poor appetite Hypoactive delirium Patient brought from [facility] due to concern for poor care he was receiving there. Patient with history of dementia which has been worsening. Hypernatremic at presentation which is resolved. Hyperkalemia likely 2/2 heparin sc use and has resolved with discontinuation of heparin- last dose was 08/26/22 Completed antibiotics for possible UTI given abnormal UA Plan Seen by TALENT PROGRAM MANAGER- continue pureed diet with assistance Patient is a total feed/w/ appropriate appetite Encourage p.o. intake. Seen by palliative and discussed with family. Plan for home hospice at her daughter's home. Home arrangements to be made. Expected discharge Thursday per CM. Urinary retention- seen by urology. Continue alvarado at discharge and OP uro follow up. Continue flomax Decubitus ulcers at various stages POA: Stage II sacral ulcer Stage I right heel ulcer Stage II left heel ulcer Stage I other pressure-point ulcers including left elbow/bilateral ankle/right lateral st - Continue wound care recommendations. Low Air mattress. Sinus tachycardia/PACs-improved with low-dose Lopressor. Continue. DVT prophylaxis: low dose eliquis as per discussion by prior hospitalist DNR/DNI Patient's daughter/POA Ms. Odette Christie [phone]. Disposition: Plan for home hospice on Thursday awaiting home arrangement. Admission and Anticipated Discharge Date Admission Date: August 20, 2022 Subjective Patient was seen and examined at bedside. He is awake, alert, answering simple questions intermittently. He states he is fine and denies any needs. No fever, shortness of breath, distress or vomiting noted. Review of Systems Review of Systems: Unobtainable due to cognitive status Physical Exam Physical Exam: General: Lying comfortably in bed, not in distress, on room air Chest: Clear breath sounds bilaterally, no wheezes or crackles CVS: Regular, normal heart sounds, no murmur Abdomen: Soft, non tender, not distended, normal bowel sounds Neuro: Awake, alert, answers simple questions intermittently although slow. Does not follow commands Extremities: No cyanosis, clubbing or edema Psych: Calm, not agitated Skin: Multiple decubitus ulcers in feet, stage II sacral decubitus on dressing Results & Data Results & Data Vital Signs (Past 12 Hours) Vital Signs Temp Pulse Resp BP Pulse Ox O2 Del Method 09/08/22 07:22 36.7 C 76 16 135/67 99 Room Air 09/07/22 22:22 36.7 C 72 16 115/54 L 96 Room Air Medications Administered Current Inpatient Medications Acetaminophen (Acetaminophen 325 Mg Tab) 650 mg PO Q6H PRN PRN Reason: TEMP >101F/PAIN Stop: 09/20/22 01:06 Last Admin: 09/05/22 10:14 Dose: 650 mg Apixaban (Apixaban 2.5 Mg Tab) 2.5 mg PO BID [facility] Stop: 09/25/22 20:59 Last Admin: 09/08/22 08:34 Dose: 2.5 mg Bisacodyl (Bisacodyl 10 Mg Supp) 10 mg [place] DAILY PRN PRN Reason: Constipation Stop: 09/29/22 09:47 Last Admin: 09/03/22 09:47 Dose: 10 mg Metoprolol Tartrate (Metoprolol Tartrate 25 Mg Tab) 12.5 mg PO BID [facility] Stop: 10/04/22 20:59 Last Admin: 09/08/22 08:34 Dose: 12.5 mg Tamsulosin HCl (Tamsulosin Hcl 0.4 Mg Cap) 0.4 mg PO HS [facility] Stop: 09/22/22 20:59 Last Admin: 09/07/22 20:25 Dose: 0.4 mg (1) Dementia Dementia behavioral or psychological symptom: unspecified whether behavioral, psychotic, or mood disturbance or anxiety Dementia severity: severe Dementia type: unspecified type Qualified Code(s): F03.C0 - Unspecified dementia, severe, without behavioral disturbance, psychotic disturbance, mood disturbance, and anxiety
[2022-09-08] MEDS: TAMSULOSIN HCL 0.4 MG CAP PO SCH (21:18)
[2022-09-09] MEDS: METOPROLOL TARTRATE 25 MG TAB PO SCH ×2 (07:50→21:17)
[2022-09-09] MEDS: ACETAMINOPHEN 325 MG TAB PO PRN (07:50)
[2022-09-09] MEDS: APIXABAN 2.5 MG TAB PO SCH ×2 (07:51→21:18)
--- NOTE | 2022-09-09 14:32 | Urology Progress Note ---
Date of Service September 09, 2022 Assessment & Plan (1) Urinary retention: (2) Gross hematuria: Plan: Urology asked to revisit patient for Alvarado catheter replacement. Patient was previously seen by urology during admission for hematuria and urinary retention. Alvarado catheter was scoped in at bedside on 08/23/22. Nursing was unable to replace catheter today. Personally attempted catheter replacement at bedside but met resistance. Suspect catheter is going into previous false passage. Called Dr. Patel to bedside to evaluate. See attending note for further details. Admission and Anticipated Discharge Date Admission Date: August 20, 2022 Supervising Physician Co-Signing Physician Notes Following efforts for catheter placement I presented to the bedside and evaluated the patient. I attempted to pass a 6 [place] open-ended catheter after sterile prep and drape, however I felt resistance at 25 cm consistent with the previous attempts of catheter placement. With the assistance of Anahi Perez, we then advanced a flexible cystoscope and identified a large false passage as well as a relatively regular caliber true lumen of the urethra. This false passage occurs at the true bulb of the urethra. I was able to navigate the scope through the true lumen and into the bladder. I then used a Super Stiff wire to maintain access to the bladder while withdrawing the scope. A 16 [place] jackson tip catheter was placed over the wire and the procedure was concluded. The patient tolerated the procedure very well. Please leave the catheter in place. Subjective Urology asked to revisit patient for Alvarado catheter placement. Patient had Alvarado catheter in place due to urinary retention. Alvarado previously was scoped in at bedside by Dr. Dominguez on 08/23/2022. Alvarado catheter was removed by nursing today in order to obtain a urine sample with plan to exchange catheter. Nursing was unable to replace Alvarado catheter. Patient is pending discharge to home on comfort measures and replacement of Alvarado requested. Patient opened his eyes to speech, but does not answer questions or interact. ROS unobtainable due to cognitive status. He is afebrile with stable vitals. Labs 09/07 - creatinine 0.61, WBC 7.42, Hgb 9.5. Review of Systems Review of Systems: Unobtainable due to cognitive status Physical Exam Constitutional: + cachectic; no acute distress Respiratory: no respiratory distress Cardiovascular: Extremities: no pedal edema Gastrointestinal (Abdomen): Percussion/Palpation: abdomen soft; abdomen nontender Musculoskeletal: Head/Neck/Chest: normocephalic Extremities contractured Genitourinary: Pt voided in pads prior to arrival The patient was prepped and draped in the usual sterile fashion. A well- lubricated 16 [place] catheter was advanced per urethra. The catheter advanced initially but then met resistance and seemed to be coiling on itself at the level of the prostate. The catheter was withdrawn and there was a small amount of bleeding. Patient tolerated procedure well. Dr. Patel called to bedside to evaluate. Results & Data Vital Signs (Past 12 Hours) Vital Signs Temp Pulse Resp BP Pulse Ox O2 Del Method 09/09/22 07:30 Room Air 09/09/22 07:32 36.6 C 87 17 120/67 94 Room Air PG Care Time/CCT Total # of Minutes Spent Total Time Spent with Patient: Total time spent is greater than 50% in coordination of care (as documented) at patient's floor/unit and/or counseling patient: Coding Level of Care Code 58266 SUB INP/OBS CARE 1/25MIN Diagnoses Urinary retention R33.9 Gross hematuria R31.0 Comment cystoscopy and alvarado catheter placement
--- NOTE | 2022-09-09 15:31 | Hospitalist Progress Note ---
Date of Service September 09, 2022 Assessment & Plan (1) Dementia: Plan 71-year-old male with PMH of chronic diastolic heart failure [EF 55%], CAD status post stent, CVA, GERD, chronic anemia [baseline hemoglobin of 12], BPH, mood disorder, past tobacco abuse, dementia [facility] daughter because his daughter was unhappy about patient's status and care at the facility. He is being managed for the following while in hospital: Advanced vascular dementia [facility] from [facility] due to concern for poor care he was receiving there. Patient with history of dementia which has been worsening. Hypernatremic at presentation which is resolved. Hyperkalemia likely 2/2 heparin sc use and has resolved with discontinuation of heparin- last dose was 08/26/22 Completed antibiotics for possible UTI given abnormal UA Plan Seen by CONTRACT ADMINISTRATIVE ASSISTANT- continue pureed diet with assistance Patient is a total feed/w/ appropriate appetite Encourage p.o. intake. Seen by palliative and discussed with family. Plan for home hospice at her daughter's home. Home arrangements to be made. Expected discharge Thursday per CM. Urinary retention-given low-grade temperature, requested Lau change and urine sample to rule out UTI, however RN was unable to replace Lau. Requested urology reevaluation for Lau placement as plan is for home hospice tomorrow. Continue flomax Decubitus ulcers at various stages POA: Stage II sacral ulcer Stage I right heel ulcer Stage II left heel ulcer Stage I other pressure-point ulcers including left elbow/bilateral ankle/right lateral st - Continue wound care recommendations. Low Air mattress. Sinus tachycardia/PACs-improved with low-dose Lopressor. Continue. DVT prophylaxis: low dose eliquis as per discussion by prior hospitalist DNR/DNI Patient's daughter/POA Ms. Odette Christie [phone]. Disposition: Plan for home hospice tomorrow awaiting home arrangement. Admission and Anticipated Discharge Date Admission Date: August 20, 2022 Subjective Patient was seen and examined at bedside. He is awake, alert, not answering questions, not following commands. Looks stable compared to yesterday. No fever, shortness of breath, vomiting. Not in distress Review of Systems Review of Systems: Unobtainable due to cognitive status Physical Exam Physical Exam: General: Lying comfortably in bed, not in distress, on room air Chest: Clear breath sounds bilaterally, no wheezes or crackles CVS: Regular, normal heart sounds, no murmur Abdomen: Soft, non tender, not distended, normal bowel sounds Neuro: Awake, alert, mute. Does not follow commands Extremities: No cyanosis, clubbing or edema Psych: Calm, not agitated Skin: Multiple decubitus ulcers in feet, stage II sacral decubitus on dressing Results & Data Results & Data Vital Signs (Past 12 Hours) Vital Signs Temp Pulse Resp BP Pulse Ox O2 Del Method 09/09/22 07:30 Room Air 09/09/22 07:32 36.6 C 87 17 120/67 94 Room Air (1) Dementia Dementia behavioral or psychological symptom: unspecified whether behavioral, psychotic, or mood disturbance or anxiety Dementia severity: severe Dementia type: unspecified type Qualified Code(s): F03.C0 - Unspecified dementia, severe, without behavioral disturbance, psychotic disturbance, mood disturbance, and anxiety
[2022-09-09 16:38] LABS: Appearance Urine Turbid (Clear); Bacteria Urine Automated Negative (Negative); Bilirubin Urine Negative (Negative); Blood Urine 3+ (Negative); Color Urine Yellow; Epithelial Cell Urine Auto 20-30 /lpf (0-5); Glucose Urine UA Negative (Negative); Ketones Urine Negative (Negative); Leukocyte Esterase Urine 3+ (Negative); Nitrite Urine Negative (Negative); Protein Urine 2+ (Negative); RBC Urine Automated >30 /hpf (0-4); Specific Gravity Urine 1.008 (1.000-1.030); Urobilinogen Urine Negative (Negative); WBC Urine Automated >30 /hpf (0-5); pH Urine 5.5 (4.5-7.5)
[2022-09-09] MEDS: TAMSULOSIN HCL 0.4 MG CAP PO SCH (21:17)
[2022-09-10] MEDS: METOPROLOL TARTRATE 25 MG TAB PO SCH ×2 (07:37→20:05)
[2022-09-10] MEDS: APIXABAN 2.5 MG TAB PO SCH ×2 (07:38→20:05)
[2022-09-10] MEDS: ACETAMINOPHEN 325 MG TAB PO PRN ×2 (07:40→21:48)
[2022-09-10] MEDS ORDERED: cefTRIAXone SODIUM 2,000 MG in DEXTROSE 5% 50 ML IV SCH (08:30)
--- NOTE | 2022-09-10 14:51 | Hospitalist Progress Note ---
Date of Service September 10, 2022 Assessment & Plan (1) Dementia: Plan 71-year-old male with PMH of chronic diastolic heart failure [EF 55%], CAD status post stent, CVA, GERD, chronic anemia [baseline hemoglobin of 12], BPH, mood disorder, past tobacco abuse, dementia was brought from the [facility] by his daughter because his daughter was unhappy about patient's status and care at the facility. He is being managed for the following while in hospital: Advanced vascular dementia Patient brought from [facility] due to concern for poor care he was receiving there. Patient with history of dementia which has been worsening. Hypernatremic at presentation which is resolved. Hyperkalemia likely 2/2 heparin sc use and has resolved with discontinuation of heparin- last dose was 08/26/22 Completed antibiotics for possible UTI given abnormal UA Plan Seen by HUMID SYSTEM OPERATOR- continue pureed diet with assistance Patient is a total feed/w/ appropriate appetite Encourage p.o. intake. Seen by palliative and discussed with family. Plan for home hospice at her daughter's home. Home arrangements to be made. Expected discharge tomorrow per CM. UTI-patient had low-grade temperature, hence Lau was changed on 09/09 and urine culture sent which is now growing gram-negative bacilli. Started on ceftriaxone D1/5 pending final urine culture results. Urinary retention-continue Lau at discharge. Lau was replaced on 09/09 by urology. Continue flomax. Outpatient follow-up with urology if desired Decubitus ulcers at various stages POA: Stage II sacral ulcer Stage I right heel ulcer Stage II left heel ulcer Stage I other pressure-point ulcers including left elbow/bilateral ankle/right lateral st - Continue wound care recommendations. Low Air mattress. Sinus tachycardia/PACs-improved with low-dose Lopressor. Continue. DVT prophylaxis: low dose eliquis as per discussion by prior hospitalist DNR/DNI Patient's daughter/POA Ms. Odette Christie [phone]. Disposition: Plan for home hospice tomorrow awaiting home arrangement. Admission and Anticipated Discharge Date Admission Date: August 20, 2022 Subjective Patient was seen and examined at bedside. Looks about the same, comfortable, stable, no new issues. No fever, shortness of breath or vomiting Review of Systems Review of Systems: Unobtainable due to cognitive status Physical Exam Physical Exam: General: Lying comfortably in bed, not in distress, on room air Chest: Clear breath sounds bilaterally, no wheezes or crackles CVS: Regular, normal heart sounds, no murmur Abdomen: Soft, non tender, not distended, normal bowel sounds Neuro: Awake, alert, mute. Does not follow commands Extremities: No cyanosis, clubbing or edema Psych: Calm, not agitated Skin: Multiple decubitus ulcers in feet, stage II sacral decubitus on dressing Genitourinary: Lau with clear urine Results & Data Results & Data Vital Signs (Past 12 Hours) Vital Signs Temp Pulse Resp BP Pulse Ox O2 Del Method 09/10/22 07:47 Room Air 09/10/22 07:33 37.4 C 93 H 18 116/65 94 Room Air Laboratory Results Urine 09/09/22 Range/Units 15:42 Urine Color Yellow Urine Appearance Turbid A (Clear) Urine pH 5.5 (4.5-7.5) Ur Specific [place] 1.008 (1.000-1.030) Urine Protein 2+ H (Negative) Urine Glucose (UA) Negative (Negative) Medications Administered Current Inpatient Medications Acetaminophen (Acetaminophen 325 Mg Tab) 650 mg PO Q6H PRN PRN Reason: TEMP >101F/PAIN Stop: 09/20/22 01:06 Last Admin: 09/10/22 07:40 Dose: 650 mg Apixaban (Apixaban 2.5 Mg Tab) 2.5 mg PO BID [facility] Stop: 09/25/22 20:59 Last Admin: 09/10/22 07:38 Dose: 2.5 mg Bisacodyl (Bisacodyl 10 Mg Supp) 10 mg [place] DAILY PRN PRN Reason: Constipation Stop: 09/29/22 09:47 Last Admin: 09/03/22 09:47 Dose: 10 mg Ceftriaxone Sodium 2,000 mg/ (Dextrose) 70 mls @ 100 mls/hr IV Q24H [facility]; Protocol Stop: 09/20/22 08:29 Last Infusion: 09/10/22 10:32 Dose: Infused Metoprolol Tartrate (Metoprolol Tartrate 25 Mg Tab) 12.5 mg PO BID [facility] Stop: 10/04/22 20:59 Last Admin: 09/10/22 07:37 Dose: 12.5 mg Tamsulosin HCl (Tamsulosin Hcl 0.4 Mg Cap) 0.4 mg PO HS [facility] Stop: 09/22/22 20:59 Last Admin: 09/09/22 21:17 Dose: 0.4 mg (1) Dementia Dementia behavioral or psychological symptom: unspecified whether behavioral, psychotic, or mood disturbance or anxiety Dementia severity: severe Dementia type: unspecified type Qualified Code(s): F03.C0 - Unspecified dementia, severe, without behavioral disturbance, psychotic disturbance, mood disturbance, and anxiety
[2022-09-10] MEDS: TAMSULOSIN HCL 0.4 MG CAP PO SCH (20:05)
[2022-09-11] MEDS: APIXABAN 2.5 MG TAB PO SCH ×2 (09:20→20:00)
[2022-09-11] MEDS: METOPROLOL TARTRATE 25 MG TAB PO SCH ×2 (09:20→20:00)
[2022-09-11] MEDS: levoFLOXacin/D5W 750 MG/150 ML BAG IV SCH (09:30)
--- NOTE | 2022-09-11 12:03 | Hospitalist Progress Note ---
Date of Service September 11, 2022 Assessment & Plan (1) Dementia: Plan 71-year-old male with PMH of chronic diastolic heart failure [EF 55%], CAD status post stent, CVA, GERD, chronic anemia [baseline hemoglobin of 12], BPH, mood disorder, past tobacco abuse, dementia was brought from the [place] [facility] by his daughter because his daughter was unhappy about patient's status and care at the facility. He is being managed for the following while in hospital: Advanced vascular dementia Patient brought from [facility] due to concern for poor care he was receiving there. Patient with history of dementia which has been worsening. Hypernatremic at presentation which is resolved. Hyperkalemia likely 2/2 heparin sc use and has resolved with discontinuation of heparin- last dose was 08/26/22 Completed antibiotics for possible UTI given abnormal UA Plan Seen by RAND BUTTING MACHINE OPERATOR- continue pureed diet with assistance Patient is a total feed/w/ appropriate appetite Encourage p.o. intake. Seen by palliative and discussed with family. Plan for home hospice at her daughter's home. Home arrangements to be made. Expected discharge tomorrow per CM. Pseudomonas UTI-intermediate to cefepime or Zosyn however sensitive to fluoroquinolone and carbapenems. Will start on Levaquin D1/7, changed to Cipro at discharge. Lau was changed on 09/09 and urine culture sent from new catheter. Urinary retention-continue Lau at discharge. Lau was replaced on 09/09 by urology. Continue flomax. Outpatient follow-up with urology if desired Decubitus ulcers at various stages POA: Stage II sacral ulcer Stage I right heel ulcer Stage II left heel ulcer Stage I other pressure-point ulcers including left elbow/bilateral ankle/right lateral st - Continue wound care recommendations. Low Air mattress. Sinus tachycardia/PACs-improved with low-dose Lopressor. Continue. DVT prophylaxis: low dose eliquis as per discussion by prior hospitalist DNR/DNI Patient's daughter/POA Ms. Odette Christie [phone]. Disposition: Plan for home hospice tomorrow awaiting home arrangement. I called her daughter but unable to reach. Admission and Anticipated Discharge Date Admission Date: August 20, 2022 Subjective Patient was seen and examined at bedside. He was mute today. Not answering any questions or following commands. He is however awake alert and remains stable at baseline. Review of Systems Review of Systems: Unobtainable due to cognitive status Physical Exam Physical Exam: General: Lying comfortably in bed, not in distress, on room air Chest: Clear breath sounds bilaterally, no wheezes or crackles CVS: Regular, normal heart sounds, no murmur Abdomen: Soft, non tender, not distended, normal bowel sounds Neuro: Awake, alert, mute. Does not follow commands Extremities: No cyanosis, clubbing or edema Psych: Calm, not agitated Skin: Multiple decubitus ulcers in feet, stage II sacral decubitus on dressing Genitourinary: Lau with clear urine Results & Data Results & Data Vital Signs (Past 12 Hours) Vital Signs Temp Pulse Resp BP Pulse Ox O2 Del Method 09/11/22 08:00 Room Air 09/11/22 07:12 37.3 C 80 16 117/61 96 Room Air 09/11/22 01:01 37.2 C Medications Administered Current Inpatient Medications Acetaminophen (Acetaminophen 325 Mg Tab) 650 mg PO Q6H PRN PRN Reason: TEMP >101F/PAIN Stop: 09/20/22 01:06 Last Admin: 09/10/22 21:48 Dose: 650 mg Apixaban (Apixaban 2.5 Mg Tab) 2.5 mg PO BID [facility] Stop: 09/25/22 20:59 Last Admin: 09/11/22 09:20 Dose: 2.5 mg Bisacodyl (Bisacodyl 10 Mg Supp) 10 mg [place] DAILY PRN PRN Reason: Constipation Stop: 09/29/22 09:47 Last Admin: 09/03/22 09:47 Dose: 10 mg Levofloxacin/Dextrose (Levaquin/D5w) 750 mg in 150 mls @ 100 mls/hr IV Q24H [facility]; Protocol Stop: 09/16/22 08:59 Last Infusion: 09/11/22 11:00 Dose: Infused Metoprolol Tartrate (Metoprolol Tartrate 25 Mg Tab) 12.5 mg PO BID [facility] Stop: 10/04/22 20:59 Last Admin: 09/11/22 09:20 Dose: 12.5 mg Tamsulosin HCl (Tamsulosin Hcl 0.4 Mg Cap) 0.4 mg PO HS [facility] Stop: 09/22/22 20:59 Last Admin: 09/10/22 20:05 Dose: 0.4 mg (1) Dementia Dementia behavioral or psychological symptom: unspecified whether behavioral, psychotic, or mood disturbance or anxiety Dementia severity: severe Dementia type: unspecified type Qualified Code(s): F03.C0 - Unspecified dementia, severe, without behavioral disturbance, psychotic disturbance, mood disturbance, and anxiety
[2022-09-11] MEDS: TAMSULOSIN HCL 0.4 MG CAP PO SCH (20:00)
[2022-09-11] MEDS: ACETAMINOPHEN 325 MG TAB PO PRN (23:30)
[2022-09-12] MEDS: levoFLOXacin/D5W 750 MG/150 ML BAG IV SCH (09:37)
[2022-09-12] MEDS: APIXABAN 2.5 MG TAB PO SCH ×2 (09:38→21:35)
[2022-09-12] MEDS: METOPROLOL TARTRATE 25 MG TAB PO SCH ×2 (09:38→21:36)
--- NOTE | 2022-09-12 10:21 | Palliative Family Discussion ---
Date of Service September 12, 2022 Patient Directed Conference Time of [id number] Participants: Gabriela Riley DNP Patient participation:no/adv dementia Patient Support System: dtr Odette/guardian Other Healthcare Provider Participation: None Meeting Location: teleconference, Odette is in [facility] The patient's surrogate medical decision maker participated: yes Odette A family meeting was held for STEPHANIE LEY. This meeting was necessary for determining the appropriate course of treatment. Topics of Discussion Topics of Discussion: 1. Odette had additional questions about home hospice, etc. I spoke with her for about 30 min. She is clearly anguished and anxious - scared to have pt come home but refusing to reconsider SNF. We spoke about the services and support hospice provides at great length. She had perceived hospice would come see pt in hospital before his going home, and that they would meet with family in hospital. I advised this was not true and that the offer for another family meeting in hospital was with me, per my original conversation with her. It was not with hospice. She may have recalled the details inaccurately due to being overwhelmed. I advised her I feel ultimately they will be ok but I would ask CM to convey to hospice this family is fragile and needs all the extra TLC and support they can provide, for both patient and his adult children. Odette is ok with home hospice dc this afternoon, to her sister's house. She asks that you call sister Sanjiv to provide updates re transport arrival etc. I will ask CM to assure hospice can see him today for same day admission given the sheer panic this family is dealing with. Other Content of Meetin. Opportunity given for participants to speak and ask questions. 2. Participants were assured of attention to patient comfort. 3. Reassurance provided. 4. Support was provided for informed, good-[place] decisions. 5. Emotions expressed by family were acknowledged and addressed. 6. Plan of Care: dc home with hospice later this afternoon. I have notified primary team and CM, as well as nursing Time Involved in Meeting: I spent 50 minutes overall addressing this case: 10 in medical data review/discussion with referring provider(s) and/or preparation for the visit 30min in ACP with Odette 5 in subsequent review and synthesis of assessment and plan 10 in communicating with other providers regarding the patient's case: []
--- NOTE | 2022-09-12 14:47 | Hospitalist Progress Note ---
Date of Service September 12, 2022 Assessment & Plan (1) Dementia: Plan 71-year-old male with PMH of chronic diastolic heart failure [EF 55%], CAD status post stent, CVA, GERD, chronic anemia [baseline hemoglobin of 12], BPH, mood disorder, past tobacco abuse, dementia was brought from the care home by his daughter because his daughter was unhappy about patient's status and care at the facility. He is being managed for the following while in hospital: Advanced vascular dementia Patient brought from care home due to concern for poor care he was receiving there. Patient with history of dementia which has been worsening. Hypernatremic at presentation which is resolved. Hyperkalemia likely 2/2 heparin sc use and has resolved with discontinuation of heparin- last dose was 08/26/22 Completed antibiotics for possible UTI given abnormal UA Plan Seen by WEEKEND ANCHOR- continue pureed diet with assistance Patient is a total feed/w/ appropriate appetite Encourage p.o. intake. Seen by palliative and discussed with family. Plan for home hospice at her daughter's home. Home arrangements to be made. Expected discharge tomorrow per CM. Pseudomonas UTI-intermediate to cefepime or Zosyn however sensitive to fluoroquinolone and carbapenems. Start on Levaquin D2/7, change to Cipro 750 bid at discharge. Lau was changed on 09/09 and urine culture sent from new catheter. Urinary retention-continue Lau at discharge. Lau was replaced on 09/09 by urology. Continue flomax. Outpatient follow-up with urology if desired Decubitus ulcers at various stages POA: Stage II sacral ulcer Stage I right heel ulcer Stage II left heel ulcer Stage I other pressure-point ulcers including left elbow/bilateral ankle/right lateral st - Continue wound care recommendations. Low Air mattress. Sinus tachycardia/PACs-improved with low-dose Lopressor. Continue. DVT prophylaxis: low dose eliquis as per discussion by prior hospitalist DNR/DNI Patient's daughter/POA Ms. Odette Christie [phone]. Disposition: Plan for home hospice tomorrow awaiting home arrangement. Spoke to his daughter Radha who states the equipment has been delivered to her sister's home and they are setting things up and requesting for discharge tomorrow. Communicated with CM. Admission and Anticipated Discharge Date Admission Date: August 20, 2022 Subjective Patient was seen and examined at bedside. He is awake, alert, mostly mute, comfortable, not in distress. No fever today. State Review of Systems Review of Systems: Unobtainable due to cognitive status Physical Exam Physical Exam: General: Lying comfortably in bed, not in distress, on room air Chest: Clear breath sounds bilaterally, no wheezes or crackles CVS: Regular, normal heart sounds, no murmur Abdomen: Soft, non tender, not distended, normal bowel sounds Neuro: Awake, alert, mute. Does not follow commands Extremities: No cyanosis, clubbing or edema Psych: Calm, not agitated Skin: Multiple decubitus ulcers in feet, stage II sacral decubitus on dressing Genitourinary: Lau with clear urine Results & Data Results & Data Vital Signs (Past 12 Hours) Vital Signs Temp Pulse Resp BP Pulse Ox O2 Del Method 09/12/22 07:53 37.4 C 90 18 152/79 H 96 Room Air 09/12/22 07:40 Room Air 09/12/22 05:57 37.6 C H Medications Administered Current Inpatient Medications Acetaminophen (Acetaminophen 325 Mg Tab) 650 mg PO Q6H PRN PRN Reason: TEMP >101F/PAIN Stop: 09/20/22 01:06 Last Admin: 09/11/22 23:30 Dose: 650 mg Apixaban (Apixaban 2.5 Mg Tab) 2.5 mg PO BID [facility] Stop: 09/25/22 20:59 Last Admin: 09/12/22 09:38 Dose: 2.5 mg Bisacodyl (Bisacodyl 10 Mg Supp) 10 mg [place] DAILY PRN PRN Reason: Constipation Stop: 09/29/22 09:47 Last Admin: 09/03/22 09:47 Dose: 10 mg Levofloxacin/Dextrose (Levaquin/D5w) 750 mg in 150 mls @ 100 mls/hr IV Q24H [facility]; Protocol Stop: 09/16/22 08:59 Last Infusion: 09/12/22 11:14 Dose: Infused Metoprolol Tartrate (Metoprolol Tartrate 25 Mg Tab) 12.5 mg PO BID [facility] Stop: 10/04/22 20:59 Last Admin: 09/12/22 09:38 Dose: 12.5 mg Tamsulosin HCl (Tamsulosin Hcl 0.4 Mg Cap) 0.4 mg PO HS [facility] Stop: 09/22/22 20:59 Last Admin: 09/11/22 20:00 Dose: 0.4 mg (1) Dementia Dementia behavioral or psychological symptom: unspecified whether behavioral, psychotic, or mood disturbance or anxiety Dementia severity: severe Dementia type: unspecified type Qualified Code(s): F03.C0 - Unspecified dementia, severe, without behavioral disturbance, psychotic disturbance, mood disturbance, and anxiety
[2022-09-12] MEDS: ACETAMINOPHEN 325 MG TAB PO PRN (15:11)
[2022-09-12] MEDS: TAMSULOSIN HCL 0.4 MG CAP PO SCH (21:35)
[2022-09-13] MEDS: levoFLOXacin/D5W 750 MG/150 ML BAG IV SCH (08:52)
[2022-09-13] MEDS: METOPROLOL TARTRATE 25 MG TAB PO SCH (08:52)
[2022-09-13] MEDS: APIXABAN 2.5 MG TAB PO SCH (08:52)
--- NOTE | 2022-09-13 15:23 | Discharge Summary ---
Date of Service September 13, 2022 Admission HPI Per Admitting Provider History obtained from patient family and records. Unable to obtain history from patient secondary to dementia. Medical history significant for chronic diastolic heart failure (EF 55%), CAD status post stent, CVA, GERD, chronic anemia (baseline hemoglobin of 12), BPH, mood disorder, past tobacco abuse. Last confinement [facility] April to June 2022 for dementia. Patient daughter/POA unsuccessful getting her father placed at a [facility] in [place] where she resides due to insurance issues. Patient discharged to [facility] 6 weeks ago for placement. Last week, patient noted to be weaker than usual. Patient started on IV ceftriaxone with note of UTI on outpatient UA. Patient not improving despite intervention at [facility]. Patient daughter from [place] received a call from [facility] provider that patient may be dying soon and hospice care may be warranted. Patient traveled from [place] to visit father a few days ago. She was unhappy about patient's state and care (bedsores, patient mentation). Patient daughter dissatisfied with telephone conversation with [facility] providers today. She demanded that patient be discharged from [facility] facility and to be evaluated at the ER for any treatable medical conditions. She adamantly does not want her father to go back to [facility]. Medical History as above Surgical History : Cystoscopy, appendectomy Family History : Heart disease, thyroid disease Personal/Social history : Past tobacco abuse, no recent EtOH intake, [facility] resident the last 2 months Admission Exam Per Admitting Provider GENERAL: Demented, no respiratory distress SKIN: Pallor, cool HEENT: Pale palpebral conjunctivae, no ptosis, dry buccal mucosa NECK : Supple, no tenderness CHEST : Decreased breath sounds, no tenderness HEART : RRR, no obvious murmurs ABDOMEN: Some distention, nontender BACK : Decubiti wounds not examined EXTREMITIES : No LE swelling, no LE tenderness, spastic contracture NEUROLOGIC : Demented, no facial asymmetry, gait and stance not assessed Principal Diagnosis Advanced vascular dementia Urinary retention Decubitus ulcer Urinary retention Discharge Exam General: Lying comfortably in bed, not in distress, on room air Chest: Clear breath sounds bilaterally, no wheezes or crackles CVS: Regular, normal heart sounds, no murmur Abdomen: Soft, non tender, not distended, normal bowel sounds Neuro: Awake, alert, mute. Does not follow commands Extremities: No cyanosis, clubbing or edema Psych: Calm, not agitated Skin: Multiple decubitus ulcers in feet, stage II sacral decubitus on dressing Genitourinary: Lau with clear urine Discharge Data Allergies Allergy/AdvReac Type Severity Reaction Status Date / Time No Known Allergies Allergy Verified 08/20/22 19:27 Consultations 08/20/22 20:35 ED Decision to Admit Stat 08/21/22 18:30 Consult Urology Routine 08/26/22 08:50 Consult Nephrology Routine 09/02/22 17:35 Consult Palliative Care Routine 09/09/22 11:47 Consult Urology Routine Ordered Studies 08/20/22 18:46 CT head/brain wo con Stat Hospital Course (1) Dementia: Plan 71-year-old male with PMH of chronic diastolic heart failure [EF 55%], CAD status post stent, CVA, GERD, chronic anemia [baseline hemoglobin of 12], BPH, mood disorder, past tobacco abuse, dementia was brought from the [facility] by his daughter because his daughter was unhappy about patient's status and care at the facility. He is being managed for the following while in hospital: Advanced vascular dementia Patient brought from [facility] due to concern for poor care he was receiving there. Patient with history of dementia which has been worsening. Hypernatremic at presentation which is resolved. Hyperkalemia likely 2/2 heparin sc use and has resolved with discontinuation of heparin- last dose was 08/26/22 Completed antibiotics for possible UTI given abnormal UA Plan Seen by palliative care. Discharge plan plan home hospice at her daughter's home. Pseudomonas UTI-intermediate to cefepime or Zosyn however sensitive to fluoroquinolone and carbapenems. Was started on Levaquin during the hospitalization. Discharged on ciprofloxacin 500 twice daily. Urinary retention-continue Lau at discharge. Lau was replaced on 09/09 by urology. Continue flomax. Outpatient follow-up with urology if desired Decubitus ulcers at various stages POA: Stage II sacral ulcer Stage I right heel ulcer Stage II left heel ulcer Stage I other pressure-point ulcers including left elbow/bilateral ankle/right lateral st - Continue wound care recommendations. Low Air mattress. Sinus tachycardia/PACs-improved with low-dose Lopressor. Continue. Disposition: Discharge to daughter's home with home hospice Total Time Total Time Spent Total Time Spent (In Minutes): 45 Total Time Includes: Examination of the Patient, Discharge Planning, Medication Reconciliation, Communication With Other Providers and Other Discharge Plan Discharge Items Patient Disposition: Hospice - Home Reason For Visit: DELIRIUM Discharge Diagnosis: Advanced vascular dementia Pseudomonas UTI Urinary retention Decubitus ulcers at various stages POA: Activity: Resume your previous activity Non-emergency contact: Primary Care Provider Call non-emergency contact if: you have any medication questions Follow-up/Referrals: Diego Rosales MD [Primary Care Provider] - Diet: Regular Addtl Attending Provider Instructions: You are prescribed ciprofloxacin 500 mg twice daily for 7 more days for the UTI. Also, you are prescribed metoprolol 12.5 twice daily for elevated heart rate. Continue care as per hospice. Pending Studies at Discharge: No Stand-Alone Forms: My [facility] Medications and DC Order Prescriptions: New tamsulosin 0.4 mg Capsule 0.4 mg PO HS Qty: 30 0RF metoprolol tartrate 25 mg Tablet 12.5 mg PO BID Qty: 60 0RF ciprofloxacin HCl 500 mg tablet 500 mg PO BID 7 Days Qty: 14 0RF Continued acetaminophen [Tylenol] 325 mg Tablet 650 mg PO Q6H MDD 3 GRAMS APAP/24 HOURS PRN (Reason: TEMP >101F/PAIN) nitroglycerin [Nitrostat] 0.4 mg Tablet, Sublingual 0.4 mg sublingual .Q5MIN MDD PAIN PRN (Reason: Chest Pain) polyethylene glycol 3350 [Miralax] 17 gram/dose Powder 17 g PO Q24H PRN (Reason: Constipation) Discontinued dextrose 5 % in water (D5W) Parenteral Solution 1,000 ml IV Q8H Rx Instructions: DOSE 100 ML/HR IV EVERY SHIFT FOR HYPERNATREMIA. Discharge Orders: Discharge Order (Routine); Ordered 09/13/22 Ordered By: Selvin Soares/Other Patient Handouts: Starting Hospice, Indwelling Urinary Catheter Dc Admission Data Admit Date/Time: 08/20/22 22:39 Attending Provider: Selvin Sampson Admit Provider: Mayur Sharma Primary Care Provider: Diego Rosales Other Providers: Miguel Salazar ; Devaughn Barney ; Ceasar Diaz ; [facility] ; Mayur Sharma ; Odette Taylor ; Gaby Leahy ; Gabriela Riley ; Phillip Patel ; Tod Buckley Other Interventions: Discharge Summary Assessment (RN) Last Done: 09/13/22 11:09
--- NOTE | 2022-09-20 13:35 | Coding Query ---
CODING QUERY To promote full compliance with coding requirements relating to patient care, provider participation is requested in all cases of remote coders uncertainty. Please assist us with the question(s) below: Coding Question(s): Pt admitted with End Stage Vascular Dementia, nonverbal from local Nursing Facility. Please check below the severity of the Dementia. Pt was dicharged home on Hospice. Thanks for your help! Triston Henderson DITCHING MACHINE OPERATOR [facility] Physician's Response(s): Mild Dementia Moderate Dementia X__ Severe Dementia Principal Diagnosis: "that condition established after study, to be chiefly responsible for occasioning the admission of the patient to the hospital for care." Co-Existing Principal Diagnosis: "when two or more diagnoses equally meet the criteria for principal diagnosis as determined by the circumstances of admission, diagnostic work up, and/or therapy provided, and the Alphabetic Index, Tabular List, or another coding guideline does not provide sequencing direction, any one of the diagnoses may be sequenced first." "When the physician has documented what appears to be a current diagnosis in the body of the record, but has not included the diagnosis in the final diagnostic statement, the physician should be asked whether the diagnosis should be added." (Source Coding Clinic 2 QTR90. p3-4) MAGED
--- NOTE | 2022-09-26 09:07 | Coding Query ---
CODING QUERY To promote full compliance with coding requirements relating to patient care, provider participation is requested in all cases of collections specialist uncertainty. Please assist us with the question(s) below: Coding Question(s): Pt admitted to the Hospital due to rapid decline in the Usp.Pt diagnosed with End Stage severe vascular dementia. Pt had Metabolic Encephalopathy, UTI, hyponatremia on admission. Please document, if known or suspected, the diagnosis(es) responsible for admission that impacted the patient's delirium/ severe dementia. Thanks for your help! BECKI Aldana CCS Urine tract infection, POA Urinary retention, POA Both contributed to patient's delirium/severe dementia. Principal Diagnosis: "that condition established after study, to be chiefly responsible for occasioning the admission of the patient to the hospital for care." Co-Existing Principal Diagnosis: "when two or more diagnoses equally meet the criteria for principal diagnosis as determined by the circumstances of admission, diagnostic work up, and/or therapy provided, and the Alphabetic Index, Tabular List, or another coding guideline does not provide sequencing direction, any one of the diagnoses may be sequenced first." "When the physician has documented what appears to be a current diagnosis in the body of the record, but has not included the diagnosis in the final diagnostic statement, the physician should be asked whether the diagnosis should be added." (Source Coding Clinic 2 QTR90. p3-4) MAGED
== END 2022-09-13 14:24 | disposition hospice, home (50) | DRG 689 ==
LOC: ED 17:31 → SUATTDRO 22:39 → 2S 22:39 → 2N 08-26 16:26 → 3W 09-08 01:52